=== PATIENT | female | born 1955 | race Caucasian/White ===

== ENCOUNTER 2020-04-01 10:52 | Outpatient (REF) | payer MEDICARE, SELFPAY ==
--- NOTE | 2020-04-01 | MM_ITS ---
EXAMINATION: MM SCREENING DIGITAL BREAST TOMOSYNTHESIS, BILATERAL CLINICAL INFORMATION: Screening. Asymptomatic. The lifetime risk of breast cancer based on the Tyrer-Cuzick Model is 12%. COMPARISON: Mammography: 07/27/2009 TECHNIQUE: Digital breast tomosynthesis is performed in both the craniocaudal and mediolateral oblique views along with computer-aided detection (CAD). Synthesized 2D images are generated from the tomosynthesis. FINDINGS: There are scattered areas of fibroglandular density (ACR BI-RADS breast composition Category b). Breast tissue composition borders on predominantly fatty. Background stromal and fibroglandular densities are unremarkable. There is no interval mass or architectural abnormality or abnormal calcifications. The axilla and skin contours are unremarkable. MM/MM tomosynthesis screening BI IMPRESSION: No mammographic evidence of malignancy. ASSESSMENT: BI-RADS 1: Negative RECOMMENDATION: Routine annual mammography screening. This patient's information was entered into a reminder system with a target due date for their next mammogram.
--- NOTE | 2020-04-01 10:55 | MM_ITS ---
EXAMINATION: BONE DENSITOMETRY CLINICAL INDICATION: Menopausal and female climacteric states. COMPARISON: Baseline BD dated 09/06/2009. TECHNIQUE: Using a [employer] DXA System (software version: 13.1) manufactured by [employer], dual-energy x-ray absorptiometry was performed of the lumbar spine and left hip. The images are of good technical quality. Summary results are attached. FINDINGS: AP SPINE L1-L4: Current: BMD 1.235 g/cm2, Z-score 1.8, T-score 0.5, normal, 4.9% increase from baseline (<5% change is not significant). Baseline: BMD 1.177 g/cm2. LEFT FEMUR, NECK: Current: BMD 0.945 g/cm2, Z-score 0.6, T-score -0.7, normal. Baseline: BMD 0.958 g/cm2. LEFT FEMUR, TOTAL: Current: BMD 1.028 g/cm2, Z-score 1.2, T-score 0.2, normal, 2.6% decrease from baseline (<5% change is not significant). Baseline: BMD 1.055 g/cm2. IDENTIFIED RISK FACTORS: Menopause. HISTORY OF FRACTURE: None listed. MEDICATIONS: Calcium supplements or multivitamin. MM/XR DEXA axial skeleton IMPRESSION: 1. DIAGNOSIS: Normal bone density based on the lowest T-score value of -0.7 in the femoral neck applying World Health Organization criteria. 2. 10-YEAR FRACTURE RISK PREDICTION, FRAX: Major osteoporotic fracture (clinical spine, forearm, hip or shoulder) 7.5%. Hip fracture 0.4%. 3. Treatment Recommendations: NOF guidelines recommend consideration for treatment in postmenopausal women and men age 50 and older presenting with the following: -A hip or vertebral (clinical or morphometric) fracture. -T-score less than or equal to -2.5 at the femoral neck or spine after appropriate evaluation to exclude secondary causes. -Low bone mass at the hip or spine and a 10-year fracture probability by FRAX of greater than or equal to 3% for hip fracture or greater than or equal to 20% for major osteoporotic fracture based on the [place] adapted WHO algorithm. 4. Other Recommendations: All treatment decisions require clinical judgment and consideration of individual patient factors, including patient preferences, comorbidities, previous drug use, risk factors not captured in the FRAX model (e.g. frailty, falls, vitamin D deficiency, increased bone turnover, interval significant decline in bone density) and possible under or overestimation of fracture risk by FRAX. FUTURE SCAN RECOMMENDATION: People with diagnosed cases of osteoporosis or at high risk for fracture should have regular bone mineral density tests. For patients eligible for Medicare, routine testing is allowed once every 2 years. The testing frequency can be increased to one year for patients who have rapidly progressing disease, those who are receiving or discontinuing medical therapy to restore bone mass, or have additional risk factors.
== END 2020-04-01 10:53 | disposition home or self-care (01) ==
LOC: HO.MAMMO 10:52
PROVIDERS: PCP Internal Medicine; Visit Provider Internal Medicine
DX: N95.1 Menopausal and female climacteric states (principal); Z78.0 Asymptomatic menopausal state; Z12.31 Encounter for screening mammogram for malignant neoplasm of breast
CPT/HCPCS: 77063; 77067; 77080

== ENCOUNTER → 2020-04-02 11:08 | Outpatient (BNVA) | payer MEDICARE, SELFPAY | PROVIDERS: PCP Internal Medicine; Visit Provider Nurse Practitioner Family | DX: R00.0 Tachycardia, unspecified (principal); I15.9 Secondary hypertension, unspecified; I35.0 Nonrheumatic aortic (valve) stenosis; Z95.2 Presence of prosthetic heart valve; Z79.82 Long term (current) use of aspirin; Z79.899 Other long term (current) drug therapy | CPT/HCPCS: 93005; 99212 ==

== ENCOUNTER 2020-08-20 08:03 | Outpatient (REF) | payer MEDICARE, SELFPAY ==
[2020-08-20 12:12] LABS: Alanine Aminotransferase 25 U/L (0-31); Anion Gap 13 (12-20); Aspartate Amino Transferase 18 U/L (5-31); Blood Urea Nitrogen 18 mg/dL (9-16); Calcium 9.4 mg/dL (8.4-10.2); Carbon Dioxide 29 mmol/L (22-29); Chloride 104 mmol/L (96-108); Cholesterol 201 mg/dL; Estimated Glomerular Filt Rate > 60; Glucose Fasting 96 mg/dL (60-99); HDL Cholesterol 76 mg/dL; LDL Cholesterol Calculated 110 mg/dl; Potassium 4.5 mmol/L (3.3-5.1); Sodium 141 mmol/L (135-145); Triglycerides 75 mg/dL
[2020-08-20 12:13] LABS: Vitamin D 25-OH Total 52.5 ng/mL (>30)
== END 2020-08-20 08:04 | disposition home or self-care (01) ==
LOC: HO.HMGCLDS 08:03
PROVIDERS: PCP Internal Medicine; Visit Provider Internal Medicine
DX: E78.5 Hyperlipidemia, unspecified (principal); I35.0 Nonrheumatic aortic (valve) stenosis; I10 Essential (primary) hypertension; N95.1 Menopausal and female climacteric states
CPT/HCPCS: 36415; 80048; 80061; 82306; 84450; 84460

== ENCOUNTER → 2020-09-30 10:28 | Outpatient (REF) | payer MEDICARE, SELFPAY ==
--- NOTE | 2020-09-30 10:33 | CA_ITS ---
Transthoracic Echocardiogram Patient (Last, First, Middle): Carly Cox F Gender: Female Date of : 1955 Age: 64 Procedure Date: 09/30/2020 Procedure Type: Transthoracic Echocardiogram Location: OP Height: 165.1 cm Weight: 77.11 kg BSA: 1.85 m2 Heart Rate: bpm BP: 116 / 66 mmHg Forensic Structural Engineer: LYUDMILA Perea MD: Niesha Hwang QC LAB TECHNICIANRobinC Symptoms: I35.0 - Nonrheumatic aortic (valve) stenosis Study Quality: Good ECG Rhythm: Sinus Conclusions: - The left ventricular systolic function is normal. The visually estimated ejection fraction is between 60-65%. - A bioprosthetic aortic valve is present. The prosthetic aortic valve appears to be functioning normally. - There is mild mitral valve regurgitation. Findings Left Ventricle Normal left ventricular cavity size. There is normal left ventricular wall thickness. The left ventricular systolic function is normal. The visually estimated ejection fraction is between 60-65%. There is no evidence of regional wall motion abnormalities. Evidence suggests grade I (mild) diastolic dysfunction. Right Ventricle Normal right ventricular cavity size and systolic function. Atria Both atria are normal in size. Aortic Valve A bioprosthetic aortic valve is present. The prosthetic aortic valve appears to be functioning normally. The peak aortic velocity is 2.48 m/s with a calculated peak gradient of 25 mmHg. The mean gradient is 14 mmHg. The aortic valve area is 1.24 cm2. There is trace (trivial) aortic valve regurgitation. Mitral Valve There is mild anterior mitral leaflet thickening. There is mild mitral valve regurgitation. There is no mitral valve stenosis. Pulmonic Valve The pulmonic valve was not well visualized. There is trace pulmonic valve regurgitation. Tricuspid Valve Normal tricuspid valve structure. There is trace tricuspid valve regurgitation. The pulmonary artery systolic pressure is normal. Great Vessels The aortic annulus, sinuses of valsalva, asc aorta, and aortic arch are normal in size. Venous The inferior vena cava is normal in size and collapses greater than 50% with inspiration. Pericardium/Pleural There is a trivial pericardial effusion. Prior Study Comparison No significant change compared to prior study dated: 08/23/2019. Measurements 2D Linear Measurements RVIDd: 2.75 RVIDd Index: 1.49 IVSd: 0.81 0.6-0.9/0.6-1.0 cm LVIDd: 4.81 3.9-5.3/4.2-5.9 cm LVIDd Index: 2.60 2.4-3.2/2.2-3.1 cm/m2 LVIDs: 2.79 2.0-3.6 cm LVPWd: 1.19 0.7-1.1 cm Ao Root: 2.90 2.1-3.5 cm LA Diam: 4.40 2.7-3.8/3.0-4.0 cm LAIDs Index: 2.38 1.5-2.3 cm/m2 LV Mass: 212.86 67-162/88-224 g LV Mass Index: 115.06 43-95/49-115 g/m2 LVOT Diam: 2.00 3.0+(-)1.3 cm 2D Systolic Function EF 4C: 64.50 >55% EF 2C: 67.00 >55% EF BiP: 65.50 >55% Mitral Valve MV Pk E: 0.69 MV PK A: 0.85 MV Decel Time: 206.00 E/A: 0.80 E'Lateral: 9.03 E'Medial: 6.74 E/E' Med: 10.20 E/E' Lat: 7.60 MR Vol - PW Dopp: 6.24 MR VTI: 2.08 MR ERO: 3.00 MR Alias Mike: 0.33 MR RAD: 0.30 Aortic Valve AoV Pk Mike: 2.48 AoV Mn Mike: 1.78 AoV VTI: 0.47 AoV Pk Grad: 25.00 Aov Mn Grad: 14.00 MARISOL Cont.VTI: 1.24 LVOT LVOT Pk Mike: 0.80 LVOT Mn Mike: 0.63 LVOT VTI: 0.18 LVOT Pk Grad: 3.00 LVOT Mn Grad: 2.00 LVOT Diam: 2.00 LVOT Area: 3.14 Diastolic Function MV Pk E: 0.69 MV Pk A: 0.85 E/A: 0.80 E'Medial: 6.74 E/E' Med: 10.20 E' Laterial: 9.03 E/E' Lat: 7.60 Tricuspid Valve RA Press: 3.00 Great Vessels Aorta Ao Root-2D: 2.90 2.0-3.7 cm Ao Asc: 3.40 2.1-3.4 cm Ao Arch: 2.80 Updated in Other Vendor System with Status of Final Ras Velazquez MD electronically signed on 10/01/2020 11:16:43 AM with status of Final
== END ==
LOC: HO.CARD 10:28
PROVIDERS: Visit Provider Nurse Practitioner Family
DX: I35.0 Nonrheumatic aortic (valve) stenosis (principal)
CPT/HCPCS: 93306

== ENCOUNTER → 2020-10-23 14:25 | Outpatient (BNVA) | payer MEDICARE, SELFPAY | PROVIDERS: PCP Internal Medicine; Visit Provider Internal Medicine Cardiovascular Disease | DX: Z95.2 Presence of prosthetic heart valve (principal) | CPT/HCPCS: 99212 ==

== ENCOUNTER 2021-02-27 09:35 | Outpatient (REF) | payer MEDICARE, SELFPAY ==
[2021-02-27 10:46] LABS: Alanine Aminotransferase 28 U/L (0-31); Anion Gap 10 (12-20); Aspartate Amino Transferase 20 U/L (5-31); Blood Urea Nitrogen 17 mg/dL (9-16); Calcium 9.3 mg/dL (8.4-10.2); Carbon Dioxide 29 mmol/L (22-29); Chloride 104 mmol/L (96-108); Cholesterol 210 mg/dL; Estimated Glomerular Filt Rate > 60; Glucose Fasting 89 mg/dL (60-99); HDL Cholesterol 69 mg/dL; LDL Cholesterol Calculated 125 mg/dl; Sodium 139 mmol/L (135-145); Triglycerides 84 mg/dL
== END 2021-02-27 09:36 | disposition home or self-care (01) ==
LOC: HO.LAB 09:35
PROVIDERS: PCP Internal Medicine; Visit Provider Internal Medicine
DX: E78.5 Hyperlipidemia, unspecified (principal); I15.9 Secondary hypertension, unspecified; R73.01 Impaired fasting glucose; I10 Essential (primary) hypertension; Z95.2 Presence of prosthetic heart valve
CPT/HCPCS: 36415; 80048; 80061; 84450; 84460

== ENCOUNTER 2021-04-09 14:54 | Outpatient (REF) | payer MEDICARE, SELFPAY ==
--- NOTE | ~2021-04-09 | MM_ITS ---
EXAMINATION: MM SCREENING DIGITAL BREAST TOMOSYNTHESIS, BILATERAL CLINICAL INFORMATION: Screening. Asymptomatic. The lifetime risk of breast cancer based on the Tyrer-Cuzick Model is 12.1%. COMPARISON: Mammography: 04/01/2020 and studies dating back to 07/27/2009 TECHNIQUE: Digital breast tomosynthesis is performed in both the craniocaudal and mediolateral oblique views along with computer-aided detection (CAD). Synthesized 2-D images are generated from the tomosynthesis. FINDINGS: There are scattered areas of fibroglandular density (ACR BI-RADS breast composition Category b). There is a stable parenchymal pattern within the left breast without new abnormal dominant mass or suspicious grouping of microcalcifications. In the retroareolar region of the right breast on craniocaudal view, there is a question of a new circumscribed density measuring approximately 6 x 4 mm in size. No associated microcalcifications identified. MM/MM tomosynthesis screening BI IMPRESSION: Retroareolar density right breast for which further evaluation with spot compression view and possible ultrasound is recommended. ASSESSMENT: BI-RADS 0: Incomplete - Need Additional Imaging Evaluation. RECOMMENDATION: 1. Additional views of the right breast. 2. Targeted ultrasound if warranted after review of the additional views. 3. Radiology department staff will contact the patient for additional imaging. This patient's information was entered into a reminder system with a target due date for their next mammogram.
== END 2021-04-09 14:55 | disposition home or self-care (01) ==
LOC: HO.MAMMO 14:54
PROVIDERS: Visit Provider Internal Medicine
DX: Z12.31 Encounter for screening mammogram for malignant neoplasm of breast (principal)
CPT/HCPCS: 77063; 77067

== ENCOUNTER 2021-04-17 10:16 | Outpatient (REF) | payer MEDICARE, SELFPAY ==
--- NOTE | ~2021-04-17 | MM_ITS ---
EXAMINATION: MM DIAGNOSTIC DIGITAL BREAST TOMOSYNTHESIS, RIGHT CLINICAL INFORMATION: Recall from screening for question of circumscribed density retroareolar right breast limited to CC view measuring 6 x 4 mm. COMPARISON: Mammography: 04/09/2021, 04/01/2020 TECHNIQUE: Digital breast tomosynthesis is performed. 2D images are generated from the tomosynthesis. The following views are obtained: Spot CC, rolled CC x2, ML. FINDINGS: There are scattered areas of fibroglandular density (ACR BI-RADS breast composition Category b). Additional views show no persistent asymmetric density. There is no mass or architectural abnormality. Finding on recent synthesized CC view is likely related to summation artifact. Results are discussed with the patient and her daughter at time of visit. MM/MM tomosynthesis added views R IMPRESSION: Additional views show no persistent asymmetric density. ASSESSMENT: BI-RADS 1: Negative RECOMMENDATION: Routine annual mammography screening. This patient's information was entered into a reminder system with a target due date for their next mammogram.
== END 2021-04-17 10:17 | disposition home or self-care (01) ==
LOC: HO.MAMMO 10:16
PROVIDERS: Visit Provider Internal Medicine
DX: R92.2 Inconclusive mammogram (principal)
CPT/HCPCS: 77061; 77065

== ENCOUNTER 2021-09-04 09:34 | Outpatient (REF) | payer MEDICARE, SELFPAY ==
[2021-09-04 12:13] LABS: Vitamin D 25-OH Total 52.7 ng/mL (>30)
[2021-09-04 12:16] LABS: Alanine Aminotransferase 25 U/L (0-31); Anion Gap 12 (12-20); Aspartate Amino Transferase 20 U/L (5-31); Blood Urea Nitrogen 17 mg/dL (9-16); Calcium 9.7 mg/dL (8.4-10.2); Carbon Dioxide 29 mmol/L (22-29); Chloride 105 mmol/L (96-108); Cholesterol 181 mg/dL; Estimated Glomerular Filt Rate > 60; Glucose Fasting 113 mg/dL (60-99); HDL Cholesterol 62 mg/dL; LDL Cholesterol Calculated 104 mg/dl; Potassium 4.5 mmol/L (3.3-5.1); Sodium 141 mmol/L (135-145); Triglycerides 75 mg/dL
== END 2021-09-04 09:35 | disposition home or self-care (01) ==
LOC: HO.HMGCLDS 09:34
PROVIDERS: Visit Provider Internal Medicine
DX: E78.5 Hyperlipidemia, unspecified (principal); I15.9 Secondary hypertension, unspecified; I10 Essential (primary) hypertension; N95.1 Menopausal and female climacteric states; R73.01 Impaired fasting glucose; Z95.2 Presence of prosthetic heart valve
CPT/HCPCS: 36415; 80048; 80061; 82306; 84450; 84460

== ENCOUNTER → 2021-10-10 07:33 | Outpatient (REF) | payer MEDICARE, SELFPAY ==
--- NOTE | 2021-10-10 07:36 | CA_ITS ---
Transthoracic Echocardiogram Patient (Last, First, Middle): Carly Cox F Gender: Female Date of : 1955 Age: 65 Procedure Date: 10/10/2021 Procedure Type: Transthoracic Echocardiogram Location: OP Height: 167.64 cm Weight: 81.65 kg BSA: 1.91 m2 Heart Rate: 80 bpm BP: 140 / 66 mmHg Computer Security Specialist: JESSA Referring MD: Omar Sharma MD Machine Set Up Operator: Omar Sharma MD Symptoms: Z95.2 - Presence of prosthetic heart valve Study Quality: Adequate ECG Rhythm: Sinus Conclusions: - 1. Normal LV systolic function with grade 1 diastolic dysfunction 2. Normally function bioprosthetic aortic valve with mean gradient of 9 mmHg 3. No gross pericardial effusion Findings Left Ventricle Normal left ventricular size, thickness, and systolic function. The visually estimated ejection fraction is between 60-65%. Spectral Doppler is indicative of an impaired relaxation filling pattern. E/E prime ratio is <8, consistent with normal filling pressures. Evidence suggests grade I (mild) diastolic dysfunction. Peak GLS is -16.7%, borderline low. Right Ventricle Normal right ventricular cavity size and systolic function. Atria The left atrium is normal in size. There is lipomatous hypertrophy of the interatrial septum. There is no evidence of interatrial shunt. The right atrium is normal in size. Aortic Valve A bioprosthetic aortic valve is present. The prosthetic aortic valve appears to be functioning normally. The mean gradient is 9 mmHg. Mitral Valve Normal mitral valve structure and function. There is trace mitral valve regurgitation. There is no mitral valve stenosis. Pulmonic Valve The pulmonic valve is likely normal. Tricuspid Valve Likely normal tricuspid valve structure and function. Tricuspid regurgitation envelope is inadequate for calculation of right ventricular systolic pressure. Normal right atrial pressure. Great Vessels All visible segments of the aorta are normal in size. The pulmonary artery was not well visualized. Venous The inferior vena cava is normal in size and collapses greater than 50% with inspiration. Pericardium/Pleural There is no evidence of pericardial effusion. Prior Study Comparison No significant change compared to prior study dated: 09/30/2020. Measurements 2D Linear Measurements IVSd: 0.98 0.6-0.9/0.6-1.0 cm LVIDd: 4.65 3.9-5.3/4.2-5.9 cm LVIDd Index: 2.43 2.4-3.2/2.2-3.1 cm/m2 LVIDs: 2.69 2.0-3.6 cm LVPWd: 0.74 0.7-1.1 cm LA Diam: 3.80 2.7-3.8/3.0-4.0 cm LAIDs Index: 1.99 1.5-2.3 cm/m2 LV Mass: 163.36 67-162/88-224 g LV Mass Index: 85.53 43-95/49-115 g/m2 LVOT Diam: 2.10 3.0+(-)1.3 cm 2D Systolic Function EF 4C: 66.60 >55% EF 2C: 42.10 >55% EF BiP: 55.70 >55% Mitral Valve MV Pk E: 0.65 MV PK A: 0.76 MV Decel Time: 165.00 E/A: 0.80 E'Lateral: 6.85 E'Medial: 8.16 E/E' Med: 7.90 E/E' Lat: 9.40 PHT: 48.00 MVA PHT: 4.58 Decel Sherman: 3.91 Aortic Valve AoV Pk Mike: 1.95 AoV Mn Mike: 1.37 AoV VTI: 0.41 AoV Pk Grad: 15.00 Aov Mn Grad: 9.00 MARISOL Cont.VTI: 1.66 LVOT LVOT Pk Mike: 0.87 LVOT Mn Mike: 0.67 LVOT VTI: 0.20 LVOT Pk Grad: 3.00 LVOT Mn Grad: 2.00 LVOT Diam: 2.10 LVOT Area: 3.46 Diastolic Function MV Pk E: 0.65 MV Pk A: 0.76 E/A: 0.80 E'Medial: 8.16 E/E' Med: 7.90 E' Laterial: 6.85 E/E' Lat: 9.40 Right Ventricle TVS' Mike: 8.27 Tricuspid Valve RA Press: 3.00 Great Vessels Aorta Sinus of Valsalva: 3.00 2.0-3.5 cm Ao Asc: 3.40 2.1-3.4 cm Pulmonary Veins Pulm Vein S/D 1.20 Pulmonary Valve PV Pk Mike: 0.92 Peak PV Grad: 3.00 Updated in Other Vendor System with Status of Final Omar Sharma MD electronically signed on 10/11/2021 2:09:51 PM with status of Final
== END ==
LOC: HO.CARD 07:33
PROVIDERS: PCP Internal Medicine; Visit Provider Nurse Practitioner Family
DX: I35.0 Nonrheumatic aortic (valve) stenosis (principal); Z95.2 Presence of prosthetic heart valve
CPT/HCPCS: 93306; 93356

== ENCOUNTER → 2021-10-28 12:41 | Outpatient (BNVA) | payer MEDICARE, SELFPAY | PROVIDERS: PCP Internal Medicine; Referring Provider Internal Medicine; Visit Provider Internal Medicine Cardiovascular Disease | DX: E78.5 Hyperlipidemia, unspecified (principal); R00.0 Tachycardia, unspecified; Z95.2 Presence of prosthetic heart valve | CPT/HCPCS: 93005; 99212 ==

== ENCOUNTER 2021-12-10 08:41 | Outpatient (REF) | payer MEDICARE, SELFPAY ==
[2021-12-10 12:15] LABS: Alanine Aminotransferase 21 U/L (0-31); Aspartate Amino Transferase 19 U/L (5-31); Cholesterol 189 mg/dL; Glucose Fasting 102 mg/dL (60-99); HDL Cholesterol 67 mg/dL; LDL Cholesterol Calculated 106 mg/dl; Triglycerides 80 mg/dL
[2021-12-11 07:24] LABS: Estimated Average Glucose 103 mg/dL; Hemoglobin A1c % 5.2 %
== END 2021-12-10 08:42 | disposition home or self-care (01) ==
LOC: HO.HMGCLDS 08:41
PROVIDERS: PCP Internal Medicine; Visit Provider Internal Medicine
DX: Z00.01 Encounter for general adult medical examination with abnormal findings (principal); R73.01 Impaired fasting glucose; N95.1 Menopausal and female climacteric states; E78.5 Hyperlipidemia, unspecified; I15.9 Secondary hypertension, unspecified; Z95.2 Presence of prosthetic heart valve
CPT/HCPCS: 36415; 80061; 82947; 83036; 84450; 84460

== ENCOUNTER 2022-03-09 08:17 | Outpatient (REF) | payer MEDICARE, SELFPAY ==
[2022-03-09 12:20] LABS: Cholesterol 184 mg/dL; HDL Cholesterol 66 mg/dL; LDL Cholesterol Calculated 105 mg/dl; Triglycerides 68 mg/dL
== END 2022-03-09 08:18 | disposition home or self-care (01) ==
LOC: HO.HMGCLDS 08:17
PROVIDERS: PCP Internal Medicine; Visit Provider Internal Medicine Cardiovascular Disease
DX: E78.5 Hyperlipidemia, unspecified (principal); I25.10 Atherosclerotic heart disease of native coronary artery without angina pectoris
CPT/HCPCS: 36415; 80061

== ENCOUNTER 2022-04-14 08:47 | Outpatient (REF) | payer MEDICARE, SELFPAY ==
--- NOTE | ~2022-04-14 | MM_ITS ---
EXAMINATION: MM SCREENING DIGITAL BREAST TOMOSYNTHESIS, BILATERAL CLINICAL INFORMATION: Screening. Asymptomatic. The lifetime risk of breast cancer based on the Tyrer-Cuzick Model is 10.0%. COMPARISON: Mammography: April 17, 2021 and studies dating back to July 27, 2009 TECHNIQUE: Digital breast tomosynthesis is performed in both the craniocaudal and mediolateral oblique views along with computer-aided detection (CAD). Synthesized 2D images are generated from the tomosynthesis. FINDINGS: There are scattered areas of fibroglandular density (ACR BI-RADS breast composition Category b). There are no significant masses, abnormal calcifications, or other abnormalities. MM/MM tomosynthesis screening BI IMPRESSION: No significant changes ASSESSMENT: BI-RADS 1: Negative RECOMMENDATION: Routine annual mammography screening. This patient's information was entered into a reminder system with a target due date for their next mammogram.
== END 2022-04-14 08:48 | disposition home or self-care (01) ==
LOC: HO.MAMMO 08:47
PROVIDERS: PCP Internal Medicine; Visit Provider Internal Medicine
DX: Z12.31 Encounter for screening mammogram for malignant neoplasm of breast (principal)
CPT/HCPCS: 77063; 77067

== ENCOUNTER 2022-08-21 08:16 | Outpatient (REF) | payer MEDICARE, SELFPAY ==
[2022-08-21 12:17] LABS: Alanine Aminotransferase 27 U/L (0-31); Anion Gap 13 (12-20); Aspartate Amino Transferase 20 U/L (5-31); Blood Urea Nitrogen 24 mg/dL (9-16); Calcium 9.3 mg/dL (8.4-10.2); Carbon Dioxide 29 mmol/L (22-29); Chloride 105 mmol/L (96-108); Cholesterol 184 mg/dL; Estimated Glomerular Filt Rate > 60; Glucose Fasting 105 mg/dL (60-99); HDL Cholesterol 57 mg/dL; LDL Cholesterol Calculated 109 mg/dl; Potassium 4.6 mmol/L (3.3-5.1); Sodium 142 mmol/L (135-145); Triglycerides 93 mg/dL
== END 2022-08-21 08:17 | disposition home or self-care (01) ==
LOC: HO.HMGCLDS 08:16
PROVIDERS: PCP Internal Medicine; Visit Provider Internal Medicine
DX: E78.5 Hyperlipidemia, unspecified (principal); I15.9 Secondary hypertension, unspecified; N95.1 Menopausal and female climacteric states; R73.01 Impaired fasting glucose; Z95.2 Presence of prosthetic heart valve
CPT/HCPCS: 36415; 80048; 80061; 82306; 84450; 84460

== ENCOUNTER 2022-08-24 10:37 | Outpatient (AMB) | payer MEDICARE, SELFPAY ==
--- NOTE | 2022-08-24 10:44 | A.OFFPC_ITS ---
Vital Signs 08/24/22 10:45 Height 5 ft 7 in Weight 184 lb BMI 28.8 BP 138/70 Blood Pressure Location Rt brachial Position Sitting Pulse 82 Pulse Source Pulse Oximeter Pulse Oximetry (%) 94 Oxygen Delivery Method Room Air Intake Visit Reasons: 6 month follow up Intake Note: Pt is here today for her 6 months f/u Allergies No Known Allergies [No Known Allergies*] Allergy (Verified 03/29/23 12:52) Medication List - Last Reconciled 08/24/22 by Moira Pate MD amoxicillin 2,000 mg (4 x 500 mg) PO ONCE 1 day aspirin 81 mg PO DAILY atorvastatin (Lipitor) 40 mg PO QPM cetirizine (Zyrtec) 10 mg PO DAILY PRN metoprolol succinate ER 25 mg PO DAILY multivitamin 1 tab PO DAILY Tobacco use date assessed: 08/24/22 Fall risk assessment: No Falls in past year Last assessed Fall Risk: 08/24/22 HPI 6 month follow up HPI Details 66-year-old lady with history of aortic valve stenosis status post bioprosthetic valve replacement , history of sinus tachycardia, impaired fasting glucose, dyslipidemia and hypertension, here today for follow-up. She has been feeling well, with no new complaints at present time. Has been compliant with taking her medications and tries to follow recommended diet and getting regular exercise. Denies any episodes of chest pain, no headaches or palpitations, no shortness of breath or lightheadedness reported [facility] Medical History Atrial flutter Dyslipidemia Impaired fasting glucose Menopause syndrome Nonrheumatic aortic (valve) stenosis Secondary hypertension Surgical History H/O aortic valve replacement History of colonoscopy Hx of cardiac cath (~11/2016) Family History Father COPD (chronic obstructive pulmonary disease) Smoker Mother Lung cancer CVD (cardiovascular disease) Maternal Grandmother No problems noted. Brother Bacterial endocarditis Brother No problems noted. Brother No problems noted. Sister No problems noted. Sister No problems noted. Sister No problems noted. Daughter No problems noted. Daughter No problems noted. Social History Housing: House Alcohol intake: current Alcohol intake frequency: holidays/special occasions only Patient Tobacco Use Status: Former Tobacco user Years Smoked: 20 yrs e-Cigarette/Vaping Use: Never Used service: No Current occupational status: employed Cognitive needs: No Hearing needs: No Vision needs: Yes Questionnaire PHQ-9 Over the last 2 weeks, how often have you been bothered by any of the following problems? 1. Little interest or pleasure in doing things: not at all 2. Feeling down, depressed, or hopeless: not at all 3. Trouble falling or staying asleep, or sleeping too much: not at all 4. Feeling tired or having little energy: not at all 5. Poor appetite or overeating: not at all 6. Feeling bad about yourself - or that you are a failure or have let yourself or your family down: not at all 7. Trouble concentrating on things, such as reading the newspaper or watching television: not at all 8. Moving or speaking so slowly that other people could have noticed. Or the op posite - being so fidgety or restless that you have been moving around a lot more than usual: not at all 9. Thoughts that you would be better off or of hurting yourself in some way: not at all Total score: 0 Depression Screening Interpretation: Negative 88049 - PHQ-9 Billing: Yes Source: Developed by Drs. Aric Owens, Estefanía Quezada, Rene Rivera and colleagues, with an educational camron from [employer]. Thrive Questionnaire Date Thrive assessed: 08/24/22 I am a: Patient What is your living situation today?: I have a steady place to live Within the past 12 months, did the food you bought not last and you didn't have the money to get more?: Never true Within the past 12 months, did you worry whether your food would run out before you got money to buy more?: Never true Do you have trouble paying for medicines?: No Do you have trouble getting transportation to medical appointments?: No Do you have trouble paying your heating and electricity bill?: No Do you have trouble taking care of your child, family member or friend?: No Do you have trouble with day-to-day activities such as bathing, preparing meals, shopping, managing finances, etc.?: No Are you currently unemployed and looking for a job?: No Are you interested in more education?: No AUDIT C Alcohol Use Questionnaire (AUDIT-C) 1. How often do you have a drink containing alcohol?: 4 or more times a week 2. How many drinks containing alcohol do you have on a typical day when you are drinking?: 1 or 2 3. How often do you have six or more drinks on one occasion?: Never Total Score: 4 BE-7 AMB Questionnaire BE-7 Date BE - 7 assessed: 08/24/22 Feeling nervous, anxious, or on edge: 1 = Several days Not being able to stop or control worryin = Several days Worrying too much about different things: 0 = Not at all Trouble relaxin = Not at all Being so restless that it is hard to sit still: 0 = Not at all Becoming easily annoyed or irritable: 0 = Not at all Feeling afraid as if something awful might happen: 0 = Not at all Total BE-7 score (0-4 normal; 5-9 mild; 10-14 moderate; 15-21 severe): 2 Source: Developed by Drs. Aric Owens, Estefanía Quezada, Rene Rivera and colleagues, with an educational camron from [employer]. Review of Systems Const Denies chills, Denies fatigue, Denies frequent falls and Denies weakness ENT Denies dizziness Card Denies chest pain, Denies leg edema, Denies lightheadedness, Denies palpitations, Denies dyspnea, Denies dyspnea on exertion and Denies orthopnea Resp Denies cough, Denies dyspnea and Denies dyspnea on exertion GI Denies hematochezia and Denies change in stool character Reports no additional complaints Musc Denies abnormal gait, Denies muscle weakness, Denies numbness, Denies radiating pain into limb and Denies tingling Neuro Denies abnormal gait, Denies dizziness, Denies frequent falls, Denies numbness, Denies tingling and Denies weakness Endo Denies fatigue and Denies palpitations Manuel/Lymph Reports no additional complaints Physical exam (Primary Care) Vital Signs: Last Vital Signs Pulse 82 08/24/22 10:45 BP 138/70 08/24/22 10:45 Pulse Ox 94 08/24/22 10:45 Oxygen Delivery Method Room Air 08/24/22 10:45 BMI result Body Mass Index 28.8 Tobacco/Smoking Status: Tobacco use Status Tobacco use date assessed 08/24/22 08/24/22 10:50 Patient Tobacco Use Status Former Tobacco user 08/24/22 10:50 e-Cigarette/Vaping Use Never Used 08/24/22 10:50 PHQ-9: PHQ-9 Score PHQ-9: Total score 0 08/24/22 11:15 Depression Screening Interpretation: Negative Thrive Assessment: Date of Thrive Assessment Date Thrive assessed 08/24/22 08/24/22 10:52 Const General: comfortable and no acute distress Orientation/consciousness: patient oriented x3 Limitations: no limitations HENMT Ears: hearing grossly normal bilaterally, external ears normal, TM's normal bilaterally and EAC's normal General nose exam: Normal external nose present and No nasal discharge present Mouth: oropharynx normal and moist mucous membranes Eyes General: appearance normal, both eyes and all related structures Conjunctivae: conjunctivae normal Pupils: Equal, round and reactive pupils present EOM: EOMs intact bilaterally Neck Neck: Yes full ROM, Yes no lymphadenopathy and Yes supple Resp Effort & Inspection: normal respiratory effort and able to speak in complete sentences Auscultation: clear to auscultation bilaterally Cardio Rate: regular rate Rhythm: regular rhythm Heart sounds: S1 normal heart sound present and S2 normal heart sound present GI Palpation (GI): Soft to palpation, nontender and no masses Auscultation: normal bowel sounds Skin General skin exam: no rashes or lesions noted Neuro General: patient oriented x3, gait normal, tone normal, moves all extremities, Normal light touch and pain sensation and no focal motor deficits Cranial nerves: Yes Equal, round and reactive pupils present Cognition (Neuro): normal cognition Gait exam (Neuro): Normal gait present Motor exam (neuro): 5/5 motor strength present throughout Extrem General: Yes full ROM, Yes no joint enlargement, Yes no pedal edema, Yes no calf tenderness and Yes normal gait Results Reviewed Results Reviewed: RUN: 08/24/22 1115 PAGE 1 [facility] [address] [place] [id number] Quality Assurance Monitor Chassis: Jamel Licea M.D. Specimen Inquiry Name: Carly Cox Age/Sex: 66/F : 1955 Unit#: [id number] Attend Dr: Moira Pate MD Re08/21/22 Status: DEP [facility]F [facility] Disch: SPEC : [id number] [place]: 08/21/22 STATUS: COMP REQ : [id number] RECD: 08/21/22-[address]: Moira Pate MD COMP: 08/21/22 ENTERED: 08/21/[address] [facility] [address]: ORDERED: Met Prof Fast, AST, ALT, Lipid Panel, Vitamin D 25-OH Test Result Flag Reference Site Sodium 142 135-145 mmol/L Potassium 4.6 3.3-5.1 mmol/L CL 105 96-108 mmol/L CO2 29 22-29 mmol/L Gap 13 12-20 BUN 24 H 9-16 mg/dL Creat 0.80 0.5-1.4 mg/dL EGFR > 60 NOTE: For -Micronesian individuals, multiply the result by 1.210. Chronic Kidney Disease: Estimated GFR < 60 mL/min/1.73m2 Severe Kidney Disease: Estimated GFR < 15 mL/min/1.73m2 FBS 105 H 60-99 mg/dL A fasting glucose from 100-125 mg/dl is considered impaired (pre-diabetes). CA 9.3 8.4-10.2 mg/dL AST (GOT) 20 5-31 U/L ALT (GPT) 27 0-31 U/L Triglyceride 93 mg/dL Desirable Triglyceride: less than 150 mg/dL Borderline High Triglyceride 150-199 mg/dL High Triglyceride: 200-499 mg/dL Very High Triglyceride: greater than or equal to 5OO mg/dL Chol 184 mg/dL Desirable Cholesterol: less than 200 mg/dL Borderline High Cholesterol: 200-239 mg/dL High Cholesterol: greater than 239 mg/dL LDL Calculated 109 mg/dl Desirable LDL: less than 100 mg/dL Near Optimal/Above Optimal LDL: 110-129 mg/dL Borderline High LDL: 130-159 mg/dL High LDL: 160-189 mg/dL Very High LDL: greater than or equal to 190 mg/dL HDL 57 mg/dL Desirable HDL: greater than 40 mg/dL Note: This HDL assay may give artificially low results in patients with liver disease. Vit D 25-OH Tot 59.0 >30 ng/mL Health Based Reference Values* < 20 ng/mL Deficient 20-30 ng/mL Insufficient > 30 ng/mL Sufficient Assessment and Plan Assessment & Plan (1) H/O aortic valve replacement: Comment: 01/23/2016 with trifecta bioprosthetic valve Code(s): Z95.2 - Presence of prosthetic heart valve Plan: Continue aspirin, atorvastatin with a goal LDL of less than 70, and metoprolol succinate ER 25 mg daily. , currently followed by Dr. Sharma (2) Impaired fasting glucose: Code(s): R73.01 - Impaired fasting glucose Plan: Your fasting blood sugars elevated above 100 mg/dL. Impaired glucose metabolism O2 at risk for developing diabetes mellitus type 2, as well as heart attack and stroke later on. Lifestyle changes at just weight loss, healthy eating habits, and regular exercise are important, and can prevent the progression to diabetes (3) Dyslipidemia: Code(s): E78.5 - Hyperlipidemia, unspecified Plan: Reviewed recent fasting lipid profile with patient with levels at goal . Continue with atorvastatin 40 mg daily , in addition to adherence to low- cholesterol diet and regular exercise, at least 30 minutes 3 to 4 times a week. Advised patient to make healthy food choices, eat more fruits, vegetables, whole grains, wild caught fish and low-fat dairy. Limit amount of meat and fried or fatty food products, as well as processed foods and fast foods. Follow-up scheduled with repeat fasting lipid panel in 6 months. (4) Secondary hypertension: Code(s): I15.9 - Secondary hypertension, unspecified Plan: Blood pressure at goal of less than 130/80. Continue with current medication. Reinforced importance of following a low sodium diet, getting regular exercise, and lowering stress levels. Orders: Orders Basic Metabolic Panel Fasting 6 Months Z95.2 - Presence of prosthetic heart valve, R73.01 - Impaired fasting glucose, E78.5 - Hyperlipidemia, unspecified, I15.9 - Secondary hypertension, unspecified Aspartate Amino Transferase 6 Months Z95.2 - Presence of prosthetic heart valve, R73.01 - Impaired fasting glucose, E78.5 - Hyperlipidemia, unspecified, I15.9 - Secondary hypertension, unspecified Alanine Aminotransferase 6 Months Z95.2 - Presence of prosthetic heart valve, R73.01 - Impaired fasting glucose, E78.5 - Hyperlipidemia, unspecified, I15.9 - Secondary hypertension, unspecified Lipid Panel 6 Months Z95.2 - Presence of prosthetic heart valve, R73.01 - Impaired fasting glucose, E78.5 - Hyperlipidemia, unspecified, I15.9 - Secondary hypertension, unspecified Coding Level of Care Code Est Pt Level 4 (52391) Diagnoses H/O aortic valve replacement Z95.2 Impaired fasting glucose R73.01 Dyslipidemia E78.5 Secondary hypertension I15.9
[2022-08-24 10:45] VITALS: BP 138/70; PULSE 82; O2SAT 94; BMI 28.8
== END 2022-08-24 11:32 | disposition home or self-care (01) ==
LOC: HO.HMGC 10:37
PROVIDERS: PCP Internal Medicine; Visit Provider Internal Medicine
DX: Z95.2 Presence of prosthetic heart valve (principal); R73.01 Impaired fasting glucose; E78.5 Hyperlipidemia, unspecified; I15.9 Secondary hypertension, unspecified
CPT/HCPCS: 99214

== ENCOUNTER → 2022-10-14 10:58 | Outpatient (REF) | payer MEDICARE, SELFPAY ==
--- NOTE | 2022-10-14 11:00 | CA_ITS ---
Transthoracic Echocardiogram Patient (Last, First, Middle): Carly Cox F Gender: Female Date of : 1955 Age: 66 Procedure Date: 10/14/2022 Procedure Type: Transthoracic Echocardiogram Location: OP Height: 165.1 cm Weight: 79.38 kg BSA: 1.87 m2 Heart Rate: bpm BP: 126 / 60 mmHg Stereo Operator: Referring MD: Omar Sharma MD Screw Machine Set Up Operator Tool: Omar Sharma MD Symptoms: Z95.2 - Presence of prosthetic heart valve Study Quality: Fair ECG Rhythm: Sinus Conclusions: - 1. Normal LV systolic function with grade 1 diastolic dysfunction 2. Normally functioning bioprosthetic aortic valve 3. Normal RV systolic pressure 4. No gross pericardial effusion 5. Upper limits son normal ascending aortic size Findings Left Ventricle Normal left ventricular size, thickness, and systolic function. The visually estimated ejection fraction is between 55-60%. Spectral Doppler is indicative of an impaired relaxation filling pattern. E/E prime ratio is <8, consistent with normal filling pressures. Evidence suggests grade I (mild) diastolic dysfunction. Right Ventricle Normal right ventricular cavity size and systolic function. Atria The left atrium is normal in size. There is no evidence of interatrial shunt. The right atrium is normal in size. Aortic Valve A bioprosthetic aortic valve is present. The prosthetic aortic valve appears to be functioning normally. The mean gradient is 11 mmHg. There is trace (trivial) aortic valve regurgitation. Measured effective orifice area is 1.7 centimeters sq which is within acceptable limits Mitral Valve Normal mitral valve structure and function. There is mild mitral valve regurgitation. There is no mitral valve stenosis. Pulmonic Valve The pulmonic valve is likely normal. There is trace pulmonic valve regurgitation. Tricuspid Valve Normal tricuspid valve structure. There is trace tricuspid valve regurgitation. The right ventricular systolic pressure is normal. The right ventricular systolic pressure is 15 mmHg. Normal right atrial pressure. There is no evidence of pulmonary hypertension. Great Vessels The pulmonary artery was not well visualized. Venous The inferior vena cava is normal in size and collapses greater than 50% with inspiration. Pericardium/Pleural There is no evidence of pericardial effusion. Prior Study Comparison No significant change compared to prior study dated: 10/10/2021. Measurements 2D Linear Measurements IVSd: 1.15 0.6-0.9/0.6-1.0 cm LVIDd: 4.38 3.9-5.3/4.2-5.9 cm LVIDd Index: 2.34 2.4-3.2/2.2-3.1 cm/m2 LVIDs: 2.83 2.0-3.6 cm LVPWd: 1.15 0.7-1.1 cm Ao Root: 3.10 2.1-3.5 cm LA Diam: 4.20 2.7-3.8/3.0-4.0 cm LAIDs Index: 2.25 1.5-2.3 cm/m2 LV Mass: 222.61 67-162/88-224 g LV Mass Index: 119.04 43-95/49-115 g/m2 LVOT Diam: 2.00 3.0+(-)1.3 cm 2D Systolic Function EF 4C: 55.90 >55% EF 2C: 51.50 >55% Mitral Valve MV Pk E: 0.59 MV PK A: 0.85 MV Decel Time: 185.00 E/A: 0.70 E'Lateral: 7.29 E'Medial: 5.66 E/E' Med: 10.50 E/E' Lat: 8.10 PHT: 54.00 MVA PHT: 4.07 Decel [place]: 3.21 Aortic Valve AoV Pk Mike: 2.12 AoV Mn Mike: 1.50 AoV VTI: 0.49 AoV Pk Grad: 18.00 Aov Mn Grad: 11.00 MARISOL Cont.VTI: 1.78 LVOT LVOT Pk Mike: 1.16 LVOT Mn Mike: 0.80 LVOT VTI: 0.28 LVOT Pk Grad: 5.00 LVOT Mn Grad: 3.00 LVOT Diam: 2.00 LVOT Area: 3.14 Diastolic Function MV Pk E: 0.59 MV Pk A: 0.85 E/A: 0.70 E'Medial: 5.66 E/E' Med: 10.50 E' Laterial: 7.29 E/E' Lat: 8.10 Right Ventricle TAPSE (mm): 20.00 TVS' Mike: 9.00 Tricuspid Valve TR Pk Mike: 1.75 TR Pk Grad: 12.00 RA Press: 3.00 RVSP: 15.00 Great Vessels Aorta Ao Root-2D: 3.10 2.0-3.7 cm Ao Asc: 3.50 2.1-3.4 cm Pulmonary Valve PV Pk Mike: 0.86 Peak PV Grad: 3.00 Updated in Other Vendor System with Status of Final Omar Sharma MD electronically signed on 10/14/2022 1:50:05 PM with status of Final
== END ==
LOC: HO.CARD 10:58
PROVIDERS: PCP Internal Medicine; Visit Provider Nurse Practitioner Family
DX: Z95.2 Presence of prosthetic heart valve (principal)
CPT/HCPCS: 93306

== ENCOUNTER 2022-11-03 12:15 | Outpatient (AMB) | payer MEDICARE, SELFPAY ==
--- NOTE | 2022-11-03 12:31 | MHC.OFFVIS ---
Intake Vital Signs 11/03/22 12:32 Height 5 ft 7 in Weight 174 lb 2.643 oz BMI 27.3 BP 120/70 Blood Pressure Location Lt brachial Position Sitting Pulse 77 Intake Visit Reasons: 1 year follow up, after echo Intake Note: 1 year follow-up after echo with ekg c/o tingling in fingers Cable Maker Required: No Allergies No Known Allergies [No Known Allergies*] Allergy (Verified 08/24/22 11:13) Medication List - Last Reconciled 11/03/22 by Omar Sharma MD amoxicillin 2,000 mg (4 x 500 mg) PO ONCE 1 day aspirin 81 mg PO DAILY atorvastatin (Lipitor) 40 mg PO QPM cetirizine (Zyrtec) 10 mg PO DAILY PRN metoprolol succinate ER 25 mg PO DAILY multivitamin 1 tab PO DAILY HPI HPI Comments History of Present Illness Details Heena comes for follow-up. She has no new cardiac complaints. Complains of numbness in left hand. Denies any exertional symptoms. Denies any orthopnea, PND, leg edema. No prolonged palpitations irregular heartbeat. No neurologic symptoms. Recent echocardiogram shows normally function bioprosthetic aortic valve. Ascending aorta is at upper limits of normal in size [facility] Medical History Atrial flutter Dyslipidemia Impaired fasting glucose Menopause syndrome Nonrheumatic aortic (valve) stenosis Secondary hypertension Surgical History H/O aortic valve replacement History of colonoscopy Hx of cardiac cath (~11/2016) Family History Father COPD (chronic obstructive pulmonary disease) Smoker Mother Lung cancer CVD (cardiovascular disease) Maternal Grandmother No problems noted. Brother Bacterial endocarditis Brother No problems noted. Brother No problems noted. Sister No problems noted. Sister No problems noted. Sister No problems noted. Daughter No problems noted. Daughter No problems noted. Social History Housing: House Alcohol intake: current Alcohol intake frequency: holidays/special occasions only Patient Tobacco Use Status: Former Tobacco user Years Smoked: 20 yrs e-Cigarette/Vaping Use: Never Used service: No Current occupational status: employed Cognitive needs: No Hearing needs: No Vision needs: Yes Review of Systems Const Denies chills, Denies fatigue, Denies fever(s), Denies frequent falls, Denies weakness, Denies weight gain and Denies weight loss ENT Denies dizziness Card Denies chest pain, Denies leg edema, Denies lightheadedness, Denies palpitations, Denies dyspnea, Denies dyspnea on exertion, Denies orthopnea and Denies other (loss of consciousness) Resp Denies cough, Denies dyspnea and Denies dyspnea on exertion GI Denies hematochezia and Denies change in stool character Musc Denies abnormal gait, Denies muscle weakness, Denies numbness, Denies radiating pain into limb and Denies tingling Neuro Denies abnormal gait, Denies dizziness, Denies frequent falls, Denies numbness, Denies tingling and Denies weakness Endo Denies fatigue and Denies palpitations Physical Exam Vital Signs: Last Vital Signs Pulse 77 11/03/22 12:32 BP 120/70 11/03/22 12:32 BMI result Body Mass Index 27.3 Const General: cooperative, comfortable, no acute distress, alert, awake and well groomed Nutritional Appearance: average body habitus Orientation/consciousness: patient oriented x3 Limitations: no limitations Neck Neck: Yes trachea midline, Yes supple and Yes no JVD Resp Effort & Inspection: normal respiratory effort Auscultation: clear to auscultation bilaterally Cardio Jugular venous distension: no JVD Palpation: normal PMI Rate: regular rate Rhythm: regular rhythm Heart sounds: S1 normal heart sound present, S2 normal heart sound present, no click, no gallops, Murmur heart sound present systolic early and no rubs Skin General skin exam: no rashes or lesions noted Neuro General: patient oriented x3 and no focal motor deficits Extrem General: Yes no clubbing, cyanosis or edema Psych Appearance: grossly normal Office Procedures EKG Details: EKG shows normal sinus rhythm with incomplete right bundle-branch block at 77 beats per minute [id number], Complete Assessment & Plan Assessment & Plan (1) H/O aortic valve replacement: Comment: 01/23/2016 with trifecta bioprosthetic valve Code(s): Z95.2 - Presence of prosthetic heart valve Plan: Bioprosthetic aortic valve replacement for severe aortic stenosis. Clinically doing well. Continue low-dose aspirin therapy. Continue vascular risk factor modification. Target goal LDL less than 100 mg/dL. Continue SBE prophylaxis as per ACC/aha guidelines. Advised to call me with any new symptoms. Will follow up in 1 year's time after an echocardiogram. Thank you for allowing me to partake in her care Orders: Orders CA echo transthoracic complete 50 Weeks Z95.2 - Presence of prosthetic heart valve Coding Level of Care Code Est Pt Level 3 (48790) Diagnoses H/O aortic valve replacement Z95.2 CPT Codes EKG - CPT: 68997-[id number], Complete ([id number])
[2022-11-03 12:32] VITALS: BP 120/70; PULSE 77; BMI 27.3
== END 2022-11-03 12:51 | disposition home or self-care (01) ==
PROVIDERS: Visit Provider Internal Medicine Cardiovascular Disease
DX: Z95.2 Presence of prosthetic heart valve (principal)
CPT/HCPCS: 93010; 99213

== ENCOUNTER → 2022-11-03 12:15 | Outpatient (BNVA) | payer MEDICARE, SELFPAY | PROVIDERS: Visit Provider Internal Medicine Cardiovascular Disease | DX: Z95.2 Presence of prosthetic heart valve (principal) | CPT/HCPCS: 93005; 99212 ==

== ENCOUNTER 2023-02-16 09:11 | Outpatient (REF) | payer MEDICARE, SELFPAY ==
[2023-02-16 11:37] LABS: Alanine Aminotransferase 16 U/L (0-31); Anion Gap 13 (12-20); Aspartate Amino Transferase 17 U/L (5-31); Blood Urea Nitrogen 18 mg/dL (9-16); Calcium 9.7 mg/dL (8.4-10.2); Carbon Dioxide 28 mmol/L (22-29); Chloride 106 mmol/L (96-108); Cholesterol 194 mg/dL (<200); Estimated Glomerular Filt Rate > 60; Glucose Fasting 108 mg/dL (60-99); HDL Cholesterol 70 mg/dL (>40); LDL Cholesterol Calculated 111 mg/dL (<100); Potassium 4.1 mmol/L (3.3-5.1); Sodium 143 mmol/L (135-145); Triglycerides 67 mg/dL (<150)
== END 2023-02-16 09:12 | disposition home or self-care (01) ==
LOC: HO.HMGCLDS 09:11
PROVIDERS: PCP Internal Medicine; Visit Provider Internal Medicine
DX: R73.01 Impaired fasting glucose (principal); E78.5 Hyperlipidemia, unspecified; I15.9 Secondary hypertension, unspecified; Z95.2 Presence of prosthetic heart valve
CPT/HCPCS: 36415; 80048; 80061; 84450; 84460

== ENCOUNTER 2023-03-29 11:56 | Outpatient (AMB) | payer MEDICARE, SELFPAY ==
--- NOTE | 2023-03-29 12:26 | MHC.PC.OV ---
Vital Signs 03/29/23 12:27 Height 5 ft 7 in Weight 174 lb 4 oz BMI 27.3 BP 120/68 Blood Pressure Location Lt brachial Position Sitting Pulse 87 Pulse Source Pulse Oximeter Pulse Oximetry (%) 94 Oxygen Delivery Method Room Air Intake Visit Reasons: PE/6m follow up Intake Note: Pt is here for her Annual PE Allergies No Known Allergies [No Known Allergies*] Allergy (Verified 03/29/23 12:52) Medication List - Last Reconciled 03/29/23 by Moira Pate MD amoxicillin 2,000 mg (4 x 500 mg) PO ONCE 1 day aspirin 81 mg PO DAILY atorvastatin (Lipitor) 40 mg PO QPM cetirizine (Zyrtec) 10 mg PO DAILY PRN hydroxyzine HCl 25 mg PO BEDTIME PRN metoprolol succinate ER 25 mg PO DAILY multivitamin 1 tab PO DAILY Tobacco use date assessed: 03/29/23 Fall risk assessment: No Falls in past year Last assessed Fall Risk: 03/29/23 Dental Screening Dental Screen Date: 03/29/23 Did you have a dental visit in the last 12 months?: Yes Did you have a dental problem in the last 6 months where you did not have access to dental care?: No Was dental information given to patient?: Patient has dentist HPI PE/6m follow up HPI Details 67-year-old lady with history of aortic stenosis status post TAVR, has prediabetes, dyslipidemia secondary hypertension, here today for her physical exam. She has been feeling well with no complaints at present time [facility] Medical History Impaired fasting glucose Menopause syndrome Dyslipidemia Secondary hypertension Atrial flutter Nonrheumatic aortic (valve) stenosis Surgical History Hx of cardiac cath (~11/2016) H/O aortic valve replacement History of colonoscopy Family History Father COPD (chronic obstructive pulmonary disease) Smoker Mother Lung cancer CVD (cardiovascular disease) Maternal Grandmother No problems noted. Brother Bacterial endocarditis Brother No problems noted. Brother No problems noted. Sister No problems noted. Sister No problems noted. Sister No problems noted. Daughter No problems noted. Daughter No problems noted. Social History Housing: House Alcohol intake: current Alcohol intake frequency: holidays/special occasions only Patient Tobacco Use Status: Former Tobacco user Years Smoked: 20 yrs e-Cigarette/Vaping Use: Never Used service: No Current occupational status: employed Cognitive needs: No Hearing needs: No Vision needs: Yes Questionnaire PHQ-9 Over the last 2 weeks, how often have you been bothered by any of the following problems? Depression Screening Interpretation: Negative Depression Screening Done: Yes Source: Developed by Drs. Aric Owens, Estefanía Quezada, Rene Rivera and colleagues, with an educational camron from [employer]. Thrive Questionnaire Date Thrive assessed: 08/24/22 BE-7 AMB Questionnaire BE-7 Date BE - 7 assessed: 08/24/22 Source: Developed by Drs. Aric Owens, Estefanía Quezada, Rene Rivera and colleagues, with an educational camron from [employer]. Review of Systems Const Denies chills, Denies fatigue, Denies fever(s), Denies frequent falls, Denies weakness, Denies weight gain and Denies weight loss Eyes Reports no additional complaints ENT Denies dizziness Card Denies chest pain, Denies leg edema, Denies lightheadedness, Denies palpitations, Denies dyspnea, Denies dyspnea on exertion, Denies orthopnea and Denies other (loss of consciousness) Resp Denies cough, Denies dyspnea and Denies dyspnea on exertion GI Denies hematochezia and Denies change in stool character Reports no additional complaints Musc Denies abnormal gait, Denies muscle weakness, Denies numbness, Denies radiating pain into limb and Denies tingling Skin/Breast Denies breast swelling, Denies breast skin changes, Denies breast pain, Denies breast mass, Denies lesions and Denies rash Neuro Denies abnormal gait, Denies dizziness, Denies frequent falls, Denies numbness, Denies tingling and Denies weakness Psych Reports no additional complaints Endo Denies fatigue and Denies palpitations Manuel/Lymph Reports no additional complaints Aller/Immun Reports no additional complaints Physical exam (Primary Care) Vital Signs: Last Vital Signs Pulse 87 03/29/23 12:27 BP 120/68 03/29/23 12:27 Pulse Ox 94 03/29/23 12:27 Oxygen Delivery Method Room Air 03/29/23 12:27 BMI result Body Mass Index 27.3 Tobacco/Smoking Status: Tobacco use Status Tobacco use date assessed 03/29/23 03/29/23 12:39 Patient Tobacco Use Status Former Tobacco user 03/29/23 12:27 e-Cigarette/Vaping Use Never Used 03/29/23 12:27 Depression Screening Interpretation: Negative Thrive Assessment: Date of Thrive Assessment Date Thrive assessed 08/24/22 03/29/23 12:27 Const General: comfortable and no acute distress Orientation/consciousness: patient oriented x3 Limitations: no limitations HENMT Ears: hearing grossly normal bilaterally, external ears normal, TM's normal bilaterally and EAC's normal General nose exam: Normal external nose present Mouth: oropharynx normal and moist mucous membranes Eyes General: appearance normal, both eyes and all related structures Conjunctivae: conjunctivae normal Pupils: Equal, round and reactive pupils present EOM: EOMs intact bilaterally Neck Neck: Yes full ROM, Yes no lymphadenopathy and Yes supple Resp Effort & Inspection: normal respiratory effort and able to speak in complete sentences Auscultation: clear to auscultation bilaterally Cardio Rate: regular rate Rhythm: regular rhythm Heart sounds: S1 normal heart sound present and S2 normal heart sound present GI Palpation (GI): Soft to palpation, nontender and no masses Auscultation: normal bowel sounds Skin General skin exam: no rashes or lesions noted Neuro General: patient oriented x3, gait normal, tone normal, moves all extremities, Normal light touch and pain sensation and no focal motor deficits Cranial nerves: Yes Equal, round and reactive pupils present Cognition (Neuro): normal cognition Gait exam (Neuro): Normal gait present Motor exam (neuro): 5/5 motor strength present throughout Extrem General: Yes full ROM, Yes no joint enlargement, Yes no pedal edema, Yes no calf tenderness and Yes normal gait Results Reviewed Results Reviewed: Name: Carly Cox Age/Sex: 67/F : 1955 Unit#: [id number] Attend Dr: Moira Pate MD Re02/16/23 Status: DEP REF Location: [facility] Disch: SPEC : [id number] WALLACE: 02/16/23 STATUS: COMP REQ : [id number] RECD: 02/16/[address]: Moira Pate MD COMP: 02/16/23 ENTERED: 02/16/[address] [facility] DR: ORDERED: Met Prof Fast, AST, ALT, Lipid Panel Test Result Flag Reference Site Sodium 143 135-145 mmol/L Potassium 4.1 3.3-5.1 mmol/L CL 106 96-108 mmol/L CO2 28 22-29 mmol/L Gap 13 12-20 BUN 18 H 9-16 mg/dL Creat 0.77 0.5-1.4 mg/dL EGFR > 60 NOTE: For -Indonesian individuals, multiply the result by 1.210. Chronic Kidney Disease: Estimated GFR < 60 mL/min/1.73m2 Severe Kidney Disease: Estimated GFR < 15 mL/min/1.73m2 FBS 108 H 60-99 mg/dL A fasting glucose from 100-125 mg/dl is considered impaired (pre-diabetes). CA 9.7 8.4-10.2 mg/dL AST (GOT) 17 5-31 U/L ALT (GPT) 16 0-31 U/L Triglyceride 67 <150 mg/dL Desirable Triglyceride: less than 150 mg/dL Borderline High Triglyceride 150-199 mg/dL High Triglyceride: 200-499 mg/dL Very High Triglyceride: greater than or equal to 5OO mg/dL Cholesterol 194 <200 mg/dL Desirable Cholesterol: less than 200 mg/dL Borderline High Cholesterol: 200-239 mg/dL High Cholesterol: greater than 239 mg/dL LDL Calculated 111 H <100 mg/dL Desirable LDL: less than 100 mg/dL Near Optimal/Above Optimal LDL: 110-129 mg/dL Borderline High LDL: 130-159 mg/dL High LDL: 160-189 mg/dL Very High LDL: greater than or equal to 190 mg/dL HDL 70 >40 mg/dL Desirable HDL: greater than 40 mg/dL Note: This HDL assay may give artificially low results in patients with liver disease. Assessment and Plan Assessment & Plan (1) Annual visit for general adult medical examination with abnormal findings: Code(s): Z00.01 - Encounter for general adult medical examination with abnormal findings Plan: Recommended dental visit every 6 months and regular eye exams, at least every 2 years. Take adequate calcium in diet and vitamin-D 3 at 2000 IU per cap once a day, in addition to weight-bearing exercises to help maintain good muscle tone and weight control. Instructed to do self-breast exam, and continue to get yearly mammogram, already has appointment scheduled later this month. Up-to-date with her bone density scan. Reminded to get her COVID booster, and will be getting her flu shot at the pharmacy, up-to-date with Tdap , pneumococcal vaccination and shingles vaccination. I (2) Impaired fasting glucose: Code(s): R73.01 - Impaired fasting glucose Plan: Latest fasting labs showed elevated fasting glucose, encouraged to continue doing regular exercise, following recommended diet, (3) Dyslipidemia: Code(s): E78.5 - Hyperlipidemia, unspecified Plan: LDL cholesterol not at goal of at least less than 100 100 mg/dL. Encouraged to adhere to recommended diet, getting regular exercise. (4) Secondary hypertension: Code(s): I15.9 - Secondary hypertension, unspecified Plan: Blood pressure at goal of less than 130/80. Continue with current medication. Reinforced importance of following a low sodium diet, getting regular exercise, and lowering stress levels. Orders: Orders Alanine Aminotransferase 08/18/23 Z95.2 - Presence of prosthetic heart valve, R73.01 - Impaired fasting glucose, N95.1 - Menopausal and female climacteric states, E78.5 - Hyperlipidemia, unspecified, I15.9 - Secondary hypertension, unspecified Hemoglobin A1c 08/18/23 Z95.2 - Presence of prosthetic heart valve, R73.01 - Impaired fasting glucose, N95.1 - Menopausal and female climacteric states, E78.5 - Hyperlipidemia, unspecified, I15.9 - Secondary hypertension, unspecified Glucose Fasting 08/18/23 Z95.2 - Presence of prosthetic heart valve, R73.01 - Impaired fasting glucose, N95.1 - Menopausal and female climacteric states, E78.5 - Hyperlipidemia, unspecified, I15.9 - Secondary hypertension, unspecified Vitamin D 25-OH Total 08/18/23 Z95.2 - Presence of prosthetic heart valve, R73.01 - Impaired fasting glucose, N95.1 - Menopausal and female climacteric states, E78.5 - Hyperlipidemia, unspecified, I15.9 - Secondary hypertension, unspecified Lipid Panel 08/18/23 Z95.2 - Presence of prosthetic heart valve, R73.01 - Impaired fasting glucose, N95.1 - Menopausal and female climacteric states, E78.5 - Hyperlipidemia, unspecified, I15.9 - Secondary hypertension, unspecified Aspartate Amino Transferase 08/18/23 Z95.2 - Presence of prosthetic heart valve, R73.01 - Impaired fasting glucose, N95.1 - Menopausal and female climacteric states, E78.5 - Hyperlipidemia, unspecified, I15.9 - Secondary hypertension, unspecified Hemoglobin and Hematocrit 08/18/23 Z95.2 - Presence of prosthetic heart valve, R73.01 - Impaired fasting glucose, N95.1 - Menopausal and female climacteric states, E78.5 - Hyperlipidemia, unspecified, I15.9 - Secondary hypertension, unspecified Basic Metabolic Panel Fasting 08/18/23 Z95.2 - Presence of prosthetic heart valve, R73.01 - Impaired fasting glucose, N95.1 - Menopausal and female climacteric states, E78.5 - Hyperlipidemia, unspecified, I15.9 - Secondary hypertension, unspecified Medications: Refilled atorvastatin (Lipitor) 40 mg PO QPM 90 tabs 3RF metoprolol succinate ER 25 mg PO DAILY 90 tabs 3RF Coding Level of Care Code Est Pt Prev Care >65y(24194) Diagnoses Annual visit for general adult medical examination with abnormal findings Z00.01 Impaired fasting glucose R73.01 Dyslipidemia E78.5 Secondary hypertension I15.9
[2023-03-29 12:27] VITALS: BP 120/68; PULSE 87; O2SAT 94; BMI 27.3
== END 2023-03-29 14:13 | disposition home or self-care (01) ==
PROVIDERS: PCP Internal Medicine; Visit Provider Internal Medicine
DX: Z00.00 Encounter for general adult medical examination without abnormal findings (principal); R73.01 Impaired fasting glucose; E78.5 Hyperlipidemia, unspecified; I15.9 Secondary hypertension, unspecified
CPT/HCPCS: 99397

== ENCOUNTER 2023-04-15 15:30 | Outpatient (REF) | payer MEDICARE, SELFPAY | END 2023-04-15 15:31 | disposition home or self-care (01) | LOC: HO.MAMMO 15:30 | PROVIDERS: PCP Internal Medicine; Visit Provider Internal Medicine | DX: Z12.31 Encounter for screening mammogram for malignant neoplasm of breast (principal) | CPT/HCPCS: 77063; 77067 ==

== ENCOUNTER → 2023-04-15 15:30 | Outpatient (BNV) | payer MEDICARE, SELFPAY | PROVIDERS: PCP Internal Medicine; Visit Provider Radiology Diagnostic Radiology | DX: Z12.31 Encounter for screening mammogram for malignant neoplasm of breast (principal) | CPT/HCPCS: 77063; 77067 ==

== ENCOUNTER 2023-09-23 08:27 | Outpatient (REF) | payer MEDICARE, SELFPAY ==
[2023-09-23 10:38] LABS: Hematocrit 37.7 % (37.0-47.0); Hemoglobin 12.9 g/dl (12.0-16.0)
[2023-09-23 10:51] LABS: Estimated Average Glucose 100 mg/dL; Hemoglobin A1c % 5.1 % (<6.0)
[2023-09-23 10:52] LABS: Alanine Aminotransferase 23 U/L (0-31); Anion Gap 11 (12-20); Aspartate Amino Transferase 20 U/L (5-31); Blood Urea Nitrogen 18 mg/dL (9-16); Calcium 9.5 mg/dL (8.4-10.2); Carbon Dioxide 28 mmol/L (22-29); Chloride 107 mmol/L (96-108); Cholesterol 173 mg/dL (<200); Estimated Glomerular Filt Rate > 60; Glucose Fasting 108 mg/dL (60-99); HDL Cholesterol 65 mg/dL (>40); LDL Cholesterol Calculated 94 mg/dL (<100); Potassium 4.3 mmol/L (3.3-5.1); Sodium 142 mmol/L (135-145); Triglycerides 73 mg/dL (<150)
[2023-09-23 11:15] LABS: Vitamin D 25-OH Total 49.8 ng/mL (>30)
== END 2023-09-23 08:28 | disposition home or self-care (01) ==
LOC: HO.HMGCLDS 08:27
PROVIDERS: PCP Internal Medicine; Visit Provider Internal Medicine
DX: I15.9 Secondary hypertension, unspecified (principal); E78.5 Hyperlipidemia, unspecified; N95.1 Menopausal and female climacteric states; R73.01 Impaired fasting glucose; Z95.2 Presence of prosthetic heart valve
CPT/HCPCS: 36415; 80048; 80061; 82306; 83036; 84450; 84460; 85014; 85018

== ENCOUNTER 2023-09-28 11:12 | Outpatient (AMB) | payer MEDICARE, SELFPAY ==
[2023-09-28 11:28] VITALS: BP 134/62; PULSE 86; O2SAT 98; BMI 28.2
--- NOTE | 2023-09-28 11:28 | MHC.PC.OV ---
Vital Signs 09/28/23 11:28 Height 5 ft 7 in Weight 180 lb BMI 28.2 BP 134/62 Blood Pressure Location Lt brachial Position Sitting Pulse 86 Pulse Source Pulse Oximeter Pulse Oximetry (%) 98 Oxygen Delivery Method Room Air Intake Visit Reasons: 6 Month follow up Intake Note: Pt is here today for 6 months follow up visit on labs. Allergies No Known Allergies [No Known Allergies*] Allergy (Verified 09/28/23 12:09) Medication List - Last Reconciled 09/28/23 by Moira Pate MD amoxicillin 2,000 mg (4 x 500 mg) PO ONCE 1 day aspirin 81 mg PO DAILY atorvastatin (Lipitor) 40 mg PO QPM cetirizine (Zyrtec) 10 mg PO DAILY PRN hydroxyzine HCl 25 mg PO BEDTIME PRN metoprolol succinate ER 25 mg PO DAILY multivitamin 1 tab PO DAILY Tobacco use date assessed: 09/28/23 Fall risk assessment: 1 Fall in past year Last assessed Fall Risk: 09/28/23 Dental Screening Dental Screen Date: 09/28/23 Did you have a dental visit in the last 12 months?: Yes Did you have a dental problem in the last 6 months where you did not have access to dental care?: No Was dental information given to patient?: Patient has dentist HPI 6 Month follow up HPI Details 68-year-old lady with history of aortic valve stenosis status post replacemen , t here today for follow-up on her hypertension, lipids and prediabetes. She has been feeling well compliant with taking her medications. Latest fasting labs showed lipids, electrolytes renal function are within normal limits, and blood pressure stable controlled on present treatment. [facility] Medical History Impaired fasting glucose Menopause syndrome Dyslipidemia Secondary hypertension Atrial flutter Nonrheumatic aortic (valve) stenosis Surgical History Hx of cardiac cath (~11/2016) H/O aortic valve replacement History of colonoscopy Family History Father COPD (chronic obstructive pulmonary disease) Smoker Mother Lung cancer CVD (cardiovascular disease) Maternal Grandmother No problems noted. Brother Bacterial endocarditis Brother No problems noted. Brother No problems noted. Sister No problems noted. Sister No problems noted. Sister No problems noted. Daughter No problems noted. Daughter No problems noted. Social History Housing: House Alcohol intake: current Alcohol intake frequency: holidays/special occasions only Patient Tobacco Use Status: Former Tobacco user Years Smoked: started in her 20's, 10 cig. a day, quit 8 years ago e-Cigarette/Vaping Use: Never Used service: No Current occupational status: employed Cognitive needs: No Hearing needs: No Vision needs: Yes Questionnaire PHQ-9 Over the last 2 weeks, how often have you been bothered by any of the following problems? 1. Little interest or pleasure in doing things: several days 2. Feeling down, depressed, or hopeless: not at all 3. Trouble falling or staying asleep, or sleeping too much: several days 4. Feeling tired or having little energy: several days 5. Poor appetite or overeating: not at all 6. Feeling bad about yourself - or that you are a failure or have let yourself or your family down: not at all 7. Trouble concentrating on things, such as reading the newspaper or watching television: several days 8. Moving or speaking so slowly that other people could have noticed. Or the opposite - being so fidgety or restless that you have been moving around a lot more than usual: not at all 9. Thoughts that you would be better off or of hurting yourself in some way: not at all Total score: 4 Depression Screening Interpretation: Negative Depression Screening Done: Yes 81067 - PHQ-9 Billing: Yes Source: Developed by Drs. Aric Owens, Estefanía Quezada, Rene Rivera and colleagues, with an educational camron from [employer]. Thrive Questionnaire Date Thrive assessed: 09/28/23 I am a: Patient What is your living situation today?: I have a steady place to live Within the past 12 months, did the food you bought not last and you didn't have the money to get more?: Never true Within the past 12 months, did you worry whether your food would run out before you got money to buy more?: Never true Do you have trouble paying for medicines?: No Do you have trouble getting transportation to medical appointments?: No Do you have trouble paying your heating and electricity bill?: No Do you have trouble taking care of your child, family member or friend?: No Do you have trouble with day-to-day activities such as bathing, preparing meals, shopping, managing finances, etc.?: No Are you currently unemployed and looking for a job?: No Are you interested in more education?: No Please select the resources that you would like help with: None THRIVE Score: 0 AUDIT C Alcohol Use Questionnaire (AUDIT-C) 1. How often do you have a drink containing alcohol?: 4 or more times a week 2. How many drinks containing alcohol do you have on a typical day when you are drinking?: 3 or 4 3. How often do you have six or more drinks on one occasion?: Less than monthly Total Score: 6 BE-7 AMB Questionnaire BE-7 Date BE - 7 assessed: 09/28/23 Feeling nervous, anxious, or on edge: 1 = Several days Not being able to stop or control worryin = Not at all Worrying too much about different things: 1 = Several days Trouble relaxin = Not at all Being so restless that it is hard to sit still: 0 = Not at all Becoming easily annoyed or irritable: 1 = Several days Feeling afraid as if something awful might happen: 0 = Not at all Total BE-7 score (0-4 normal; 5-9 mild; 10-14 moderate; 15-21 severe): 3 Source: Developed by Drs. Aric Owens, Estefanía Quezada, Rene Rivera and colleagues, with an educational camron from [employer]. BE-7 Assessment Billing BE-7 Assessment Tool: BE-7 Assessment 55399 Review of Systems Const Denies chills, Denies fatigue, Denies fever(s), Denies weakness and Denies weight gain Eyes Denies change in vision ENT Denies dizziness Card Denies chest pain, Denies leg edema, Denies lightheadedness, Denies palpitations, Denies dyspnea and Denies orthopnea Resp Denies cough and Denies dyspnea GI Reports no additional complaints Reports no additional complaints Musc Denies abnormal gait, Denies muscle weakness, Denies numbness, Denies radiating pain into limb and Denies tingling Skin/Breast Denies breast pain and Denies breast mass Neuro Denies abnormal gait, Denies dizziness, Denies numbness, Denies tingling and Denies weakness Psych Reports no additional complaints Endo Denies fatigue and Denies palpitations Manuel/Lymph Reports no additional complaints Aller/Immun Reports no additional complaints Physical exam (Primary Care) Vital Signs: Last Vital Signs Pulse 86 09/28/23 11:28 BP 134/62 09/28/23 11:28 Pulse Ox 98 09/28/23 11:28 Oxygen Delivery Method Room Air 09/28/23 11:28 BMI result Body Mass Index 28.2 Tobacco/Smoking Status: Tobacco use Status Tobacco use date assessed 09/28/23 09/28/23 11:50 Patient Tobacco Use Status Former Tobacco user 09/28/23 11:28 e-Cigarette/Vaping Use Never Used 09/28/23 11:28 PHQ-9: PHQ-9 Score PHQ-9: Total score 4 09/28/23 12:08 Depression Screening Interpretation: Negative Thrive Assessment: Date of Thrive Assessment Date Thrive assessed 09/28/23 09/28/23 11:50 Const General: comfortable and no acute distress Orientation/consciousness: patient oriented x3 HENMT Ears: hearing grossly normal bilaterally, external ears normal, TM's normal bilaterally and EAC's normal General nose exam: Normal external nose present Mouth: oropharynx normal and moist mucous membranes Eyes General: appearance normal, both eyes and all related structures Conjunctivae: conjunctivae normal Pupils: Equal, round and reactive pupils present EOM: EOMs intact bilaterally Neck Neck: Yes full ROM, Yes no lymphadenopathy and Yes supple Resp Effort & Inspection: normal respiratory effort and able to speak in complete sentences Auscultation: clear to auscultation bilaterally Cardio Rate: regular rate Rhythm: regular rhythm Heart sounds: S1 normal heart sound present and S2 normal heart sound present GI Palpation (GI): Soft to palpation, nontender and no masses Auscultation: normal bowel sounds Back/Spine/Pelvis Back: No back tenderness Skin General skin exam: no rashes or lesions noted Neuro General: patient oriented x3, gait normal, tone normal, moves all extremities, Normal light touch and pain sensation and no focal motor deficits Cranial nerves: Yes Equal, round and reactive pupils present Cognition (Neuro): normal cognition Gait exam (Neuro): Normal gait present Motor exam (neuro): 5/5 motor strength present throughout Extrem General: Yes full ROM, Yes no joint enlargement, Yes no pedal edema, Yes no calf tenderness and Yes normal gait Psych Appearance: grossly normal and well kempt Mental Status: mental status grossly normal Speech and movement: Normal speech and movement present Affect: normal affect Results Reviewed Results Reviewed: Laboratory Tests 09/23/23 08:31 Name: Carly Cox Age/Sex: 67/F : 1955 Unit#: [id number] Attend Dr: Moira Pate MD Re09/23/23 Status: DEP REF Location: [facility] Disch: SPEC : [id number] WALLACE: 09/23/23 STATUS: COMP REQ : [id number] RECD: 09/23/23-[address]: Moira Pate MD COMP: 09/23/23 ENTERED: 09/23/23 [facility] DR: ORDERED: Met Prof Fast, AST, ALT, Lipid Panel, Vitamin D 25-OH Test Result Flag Reference Sodium 142 135-145 mmol/L Potassium 4.3 3.3-5.1 mmol/L CL 107 96-108 mmol/L CO2 28 22-29 mmol/L Gap 11 L 12-20 BUN 18 H 9-16 mg/dL Creat 0.73 0.5-1.4 mg/dL EGFR > 60 NOTE: For -[place]arusian individuals, multiply the result by 1.210. Chronic Kidney Disease: Estimated GFR < 60 mL/min/1.73m2 Severe Kidney Disease: Estimated GFR < 15 mL/min/1.73m2 FBS 108 H 60-99 mg/dL A fasting glucose from 100-125 mg/dl is considered impaired (pre-diabetes). CA 9.5 8.4-10.2 mg/dL AST (GOT) 20 5-31 U/L ALT (GPT) 23 0-31 U/L Triglyceride 73 <150 mg/dL Desirable Triglyceride: less than 150 mg/dL Borderline High Triglyceride 150-199 mg/dL High Triglyceride: 200-499 mg/dL Very High Triglyceride: greater than or equal to 5OO mg/dL Cholesterol 173 <200 mg/dL Desirable Cholesterol: less than 200 mg/dL Borderline High Cholesterol: 200-239 mg/dL High Cholesterol: greater than 239 mg/dL LDL Calculated 94 <100 mg/dL Desirable LDL: less than 100 mg/dL Near Optimal/Above Optimal LDL: 110-129 mg/dL Borderline High LDL: 130-159 mg/dL High LDL: 160-189 mg/dL Very High LDL: greater than or equal to 190 mg/dL HDL 65 >40 mg/dL Desirable HDL: greater than 40 mg/dL Note: This HDL assay may give artificially low results in patients with liver disease. Vit D 25-OH Tot 49.8 >30 ng/mL Health Based Reference Values* < 20 ng/mL Deficient 20-30 ng/mL Insufficient > 30 ng/mL Sufficient Hgb 12.9 Hct 37.7 Name: Carly Cox Age/Sex: 67/F : 1955 Unit#: [id number] Attend Dr: Moira Pate MD Re09/23/23 Status: DEP REF [facility] Disch: SPEC : [id number] WALLACE: 09/23/23 STATUS: COMP REQ : [id number] RECD: 09/23/23-[address]: Moira Pate MD COMP: 09/23/23-1038 ENTERED: 09/23/23-[address]: ORDERED: HGB and HCT Test Result Flag Reference HGB 12.9 12.0-16.0 g/dl HCT 37.7 37.0-47.0 % Coding Level of Care Code Est Pt Level 4 (75898) Complex EM visit Add On G2211 Diagnoses Dyslipidemia E78.5 Impaired fasting glucose R73.01 Additional Codes BE-7 Assessment Billing - BE-7 Assessment Tool: BE-7 Assessment 90631 ([id number])
== END 2023-09-28 12:43 | disposition home or self-care (01) ==
PROVIDERS: PCP Internal Medicine; Visit Provider Internal Medicine
DX: E78.5 Hyperlipidemia, unspecified (principal); R73.01 Impaired fasting glucose
CPT/HCPCS: 99214; G2211

== ENCOUNTER → 2023-10-19 09:55 | Outpatient (REF) | payer MEDICARE, SELFPAY ==
--- NOTE | 2023-10-19 09:57 | CA_ITS ---
Transthoracic Echocardiogram Patient (Last, First, Middle): Carly Cox F Gender: Female Date of : 1955 Age: 67 Procedure Date: 10/19/2023 Procedure Type: Transthoracic Echocardiogram Location: OP Height: 167.64 cm Weight: 80.74 kg BSA: 1.90 m2 Heart Rate: 85 bpm BP: 128 / 50 mmHg Emergency Planning And Response Manager: SB Referring MD: Omar Sharma MD Symptoms: Z95.2 - Presence of prosthetic heart valve Study Quality: Fair but adequate ECG Rhythm: Sinus Conclusions: - The left ventricular systolic function is normal. The calculated ejection fraction is 61% by biplane method. - A bioprosthetic aortic valve is present. The prosthetic aortic valve appears to be functioning abnormally. The mean gradient is 19 mmHg. [id number] para-valvular regurgitation. Elevated gradients could be related to the regurgitation and high flow state. Findings Left Ventricle Normal left ventricular cavity size. There is normal left ventricular wall thickness. The left ventricular systolic function is normal. The calculated ejection fraction is 61% by biplane method. There is no evidence of regional wall motion abnormalities. Diastolic function is normal for age. Right Ventricle Normal right ventricular cavity size and systolic function. Atria Both atria are normal in size. Aortic Valve A bioprosthetic aortic valve is present. The prosthetic aortic valve appears to be functioning abnormally. The peak aortic velocity is 2.87 m/s with a calculated peak gradient of 33 mmHg. The mean gradient is 19 mmHg. The aortic valve area is 1.40 cm2. [id number] para-valvular regurgitation. Elevated gradients could be related to the regurgitation and high flow state. Mitral Valve The mitral valve appears normal. There is trace mitral valve regurgitation. There is no mitral valve stenosis. Pulmonic Valve The pulmonic valve is likely normal. Tricuspid Valve There is no tricuspid valve regurgitation. Tricuspid regurgitation envelope is inadequate for calculation of right ventricular systolic pressure. Great Vessels The asc aorta and aortic arch are normal in size. Venous The inferior vena cava is normal in size and collapses greater than 50% with inspiration. Pericardium/Pleural There is a trivial pericardial effusion. Prior Study Comparison Changes noted compared to prior study dated: 10/14/2022. Increase in aortic valve gradients. Progression of aortic regurgitation. Recommendations, Care & Conclusions Consider a HELEN if clinically appropriate. Measurements 2D Linear Measurements IVSd: 0.85 0.6-0.9/0.6-1.0 cm LVIDd: 5.54 3.9-5.3/4.2-5.9 cm LVIDd Index: 2.92 2.4-3.2/2.2-3.1 cm/m2 LVIDs: 3.37 2.0-3.6 cm LVPWd: 1.05 0.7-1.1 cm LA Diam: 4.30 2.7-3.8/3.0-4.0 cm LAIDs Index: 2.26 1.5-2.3 cm/m2 LV Mass: 251.64 67-162/88-224 g LV Mass Index: 132.44 43-95/49-115 g/m2 LVOT Diam: 2.00 3.0+(-)1.3 cm 2D Systolic Function EF 4C: 62.10 >55% EF 2C: 59.30 >55% EF BiP: 60.90 >55% Mitral Valve MV Pk E: 0.80 MV PK A: 0.78 MV Decel Time: 141.00 E/A: 1.00 E'Lateral: 6.74 E'Medial: 6.53 E/E' Med: 12.20 E/E' Lat: 11.80 PHT: 41.00 MVA PHT: 5.37 Decel [place]: 5.65 Aortic Valve AoV Pk Mike: 2.87 AoV Mn Mike: 2.07 AoV VTI: 0.63 AoV Pk Grad: 33.00 Aov Mn Grad: 19.00 MARISOL Cont.VTI: 1.40 AI Pk Mike: 2.84 AI VTI: 0.93 AI [place]: 2.84 LVOT LVOT Pk Mike: 1.17 LVOT Mn Mike: 0.84 LVOT VTI: 0.28 LVOT Pk Grad: 5.00 LVOT Mn Grad: 3.00 LVOT Diam: 2.00 LVOT Area: 3.14 Diastolic Function MV Pk E: 0.80 MV Pk A: 0.78 E/A: 1.00 E'Medial: 6.53 E/E' Med: 12.20 E' Laterial: 6.74 E/E' Lat: 11.80 Right Ventricle TAPSE (mm): 21.70 TVS' Mike: 11.20 Tricuspid Valve RA Press: 8.00 Great Vessels Aorta Ao Asc: 3.60 2.1-3.4 cm Ao Arch: 3.10 Pulmonary Veins Pulm Vein S/D 1.00 Pulmonary Valve PV Pk Mike: 0.76 Peak PV Grad: 2.00 Updated in Other Vendor System with Status of Final Ras Velazquez MD electronically signed on 10/20/2023 12:26:32 PM with status of Final
== END ==
LOC: HO.CARD 09:55
PROVIDERS: PCP Internal Medicine; Visit Provider Internal Medicine Cardiovascular Disease
DX: Z95.2 Presence of prosthetic heart valve (principal)
CPT/HCPCS: 93306

== ENCOUNTER → 2023-10-19 09:57 | Outpatient (BNV) | payer MEDICARE, SELFPAY | PROVIDERS: PCP Internal Medicine; Visit Provider Internal Medicine | DX: T82.03XA Leakage of heart valve prosthesis, initial encounter (principal); R93.1 Abnormal findings on diagnostic imaging of heart and coronary circulation | CPT/HCPCS: 93306 ==

== ENCOUNTER 2023-11-08 12:24 | Outpatient (AMB) | payer MEDICARE, SELFPAY ==
--- NOTE | 2023-11-08 12:33 | MHC.OFFVIS ---
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 Recent echocardiogram shows [id number] paravalvular aortic regurgitation along with increased gradients. This is a new finding compared to echocardiogram from last year. She has no new symptoms at this time. She denies any worsening exertional shortness of breath, orthopnea, PND. Denies any exertional chest pain or lightheadedness. Has been taking all her medications including aspirin and SBE prophylaxis as needed. Denies any prolonged palpitation irregular heartbeat. She is concerned about this new finding which is appropriate. [facility] Medical History Impaired fasting glucose Menopause syndrome Dyslipidemia Secondary hypertension Atrial flutter Nonrheumatic aortic (valve) stenosis Surgical History Hx of cardiac cath (~11/2016) H/O aortic valve replacement History of colonoscopy Family History Father COPD (chronic obstructive pulmonary disease) Smoker Mother Lung cancer CVD (cardiovascular disease) Maternal Grandmother No problems noted. Brother Bacterial endocarditis Brother No problems noted. Brother No problems noted. Sister No problems noted. Sister No problems noted. Sister No problems noted. Daughter No problems noted. Daughter No problems noted. Social History Housing: House Alcohol intake: current Alcohol intake frequency: holidays/special occasions only Patient Tobacco Use Status: Former Tobacco user Years Smoked: 20 yrs e-Cigarette/Vaping Use: Never Used service: No Current occupational status: employed Cognitive needs: No Hearing needs: No Vision needs: Yes Review of Systems Const Denies chills, Denies fatigue, Denies fever(s), Denies frequent falls, Denies weakness, Denies weight gain and Denies weight loss ENT Denies dizziness Card Denies chest pain, Denies leg edema, Denies lightheadedness, Denies palpitations, Denies dyspnea, Denies dyspnea on exertion, Denies orthopnea and Denies other (loss of consciousness) Resp Denies cough, Denies dyspnea and Denies dyspnea on exertion GI Denies hematochezia and Denies change in stool character Musc Denies abnormal gait, Denies muscle weakness, Denies numbness, Denies radiating pain into limb and Denies tingling Neuro Denies abnormal gait, Denies dizziness, Denies frequent falls, Denies numbness, Denies tingling and Denies weakness Endo Denies fatigue and Denies palpitations Physical Exam Vital Signs: Last Vital Signs Pulse 77 11/08/23 12:34 BP 120/64 11/08/23 12:34 BMI result Body Mass Index 27.6 Const General: cooperative, comfortable, no acute distress, alert, awake and well groomed Nutritional Appearance: average body habitus Orientation/consciousness: patient oriented x3 Limitations: no limitations Neck Neck: Yes trachea midline, Yes supple and Yes no JVD Resp Effort & Inspection: normal respiratory effort Auscultation: clear to auscultation bilaterally Cardio Jugular venous distension: no JVD Palpation: normal PMI Rate: regular rate Rhythm: regular rhythm Heart sounds: S1 normal heart sound present, S2 normal heart sound present, no click, no gallops, Murmur heart sound present diastolic late, soft and at the left sternal border and systolic mid, decrescendo and crescendo and no rubs Skin General skin exam: no rashes or lesions noted Neuro General: patient oriented x3 and no focal motor deficits Extrem General: Yes no clubbing, cyanosis or edema Psych Appearance: grossly normal Office Procedures EKG Details: EKG shows normal sinus rhythm with rightward axis with incomplete right bundle-branch block, unchanged [id number], Complete Assessment & Plan Assessment & Plan (1) Prosthetic valve dysfunction: Code(s): T82.09XA - Other mechanical complication of heart valve prosthesis, initial encounter Category: Medical Plan: 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 Most likely related to her age and activity level. This was discussed with her. Currently she is not having any symptoms associated with. Advised to continue monitor clinically. Symptoms associated with worsening aortic regurgitation were discussed in details. She is advised to call me as soon as possible if she develops any significant symptoms with her activity level. If she has sudden shortness of breath she is advised to come to the emergency room. Follow-up echocardiogram 6 months time to see if there is any significant worsening of her aortic valve function that may require sooner interventions. Will schedule this for in 6 months time. Continue aspirin therapy. Continue statin therapy. Continue SBE prophylaxis as per ACC/[facility] guidelines. Follow up in the clinic in 6 months time, sooner p.r.n.. Thank you for allowing me to partake in the care Coding Level of Care Code Est Pt Level 4 (54107) Diagnoses Prosthetic valve dysfunction T82.09XA CPT Codes EKG - CPT: 82001-[id number], Complete ([id number])
[2023-11-08 12:34] VITALS: BP 120/64; PULSE 77; BMI 27.6
== END 2023-11-08 12:54 | disposition home or self-care (01) ==
PROVIDERS: PCP Internal Medicine; Visit Provider Internal Medicine Cardiovascular Disease
DX: T82.09XA Other mechanical complication of heart valve prosthesis, initial encounter (principal)
CPT/HCPCS: 93010; 99214

== ENCOUNTER → 2023-11-08 12:24 | Outpatient (BNVA) | payer MEDICARE, SELFPAY | PROVIDERS: PCP Internal Medicine; Visit Provider Internal Medicine Cardiovascular Disease | DX: T82.09XD Other mechanical complication of heart valve prosthesis, subsequent encounter (principal) | CPT/HCPCS: 93005; 99212 ==

== ENCOUNTER 2024-01-11 13:45 | Outpatient (AMB) | payer MEDICARE, SELFPAY ==
[2024-01-11 13:48] VITALS: BP 142/66; PULSE 88; O2SAT 97; BMI 28.5
--- NOTE | 2024-01-11 13:48 | A.OFFVIS_ITS ---
Vital Signs 01/11/24 13:48 Height 5 ft 7 in Weight 182 lb BMI 28.5 BP 142/66 H Blood Pressure Location Rt brachial Position Sitting Pulse 88 Pulse Source Doppler Pulse Oximetry (%) 97 Oxygen Delivery Method Room Air Intake Visit Reasons: anna Allergies No Known Allergies [No Known Allergies*] Allergy (Verified 09/28/23 12:09) HPI HPI anna: Details: 68-year-old, former 20 pack-year smoker, quit 10 years prior with underlying history of ANNA previously on CPAP with sleep study over 8 years ago who is interested in being re-evaluated for underlying obstructive sleep apnea. Patient does states that she sleeps on average 9-10 hours, however she does wake up feeling very poorly rested and she has significant daytime sleepiness. Patient today also complains of cough productive of yellowish sputum. [facility] Medical History Impaired fasting glucose Menopause syndrome Dyslipidemia Secondary hypertension Atrial flutter Nonrheumatic aortic (valve) stenosis Surgical History Hx of cardiac cath (~11/2016) H/O aortic valve replacement History of colonoscopy Family History Father COPD (chronic obstructive pulmonary disease) Smoker Mother Lung cancer CVD (cardiovascular disease) Maternal Grandmother No problems noted. Brother Bacterial endocarditis Brother No problems noted. Brother No problems noted. Sister No problems noted. Sister No problems noted. Sister No problems noted. Daughter No problems noted. Daughter No problems noted. Social History (Updated 01/11/24 @ 13:55 by Alyson Cisneros [facility]) Housing: House Alcohol intake: current Alcohol intake frequency: holidays/special occasions only Patient Tobacco Use Status: Former Tobacco user Years Smoked: started in her 20's, 10 cig. a day, quit 8 years ago e-Cigarette/Vaping Use: Never Used service: No Current occupational status: employed Cognitive needs: No Hearing needs: No Vision needs: Yes Review of Systems Const Reports daytime sleepiness, Denies excessive sweating, Denies fatigue, Denies fever(s), Reports lethargy, Reports malaise, Denies night sweats, Denies snoring and Denies weight loss Eyes Denies blurry vision and Denies itchy eyes ENT Denies nasal congestion, Denies post nasal drip, Denies sinus pain, Denies sinus pressure and Denies other ( Thrush) Card Denies chest pain, Denies pedal edema, Denies dyspnea, Denies orthopnea and Denies paroxysmal nocturnal dyspnea Resp Reports cough, Denies hemoptysis, Reports excessive phlegm production, Denies dyspnea, Denies snoring and Denies wheezing GI Denies abdominal pain and Denies heartburn Musc Denies myalgias, Denies arthralgias and Denies joint swelling Skin/Breast Denies rash Neuro Denies memory loss and Denies seizure-like activity Psych Denies abnormal sleep pattern, Denies anxiety and Denies memory loss Endo Denies excessive sweating, Denies fatigue and Denies heat intolerance Manuel/Lymph Denies easy bruising Aller/Immun Denies itchy eyes, Denies seasonal rhinorrhea and Denies wheezing Physical Exam Vital Signs: Last Vital Signs Pulse 88 01/11/24 13:48 BP 142/66 H 01/11/24 13:48 Pulse Ox 97 01/11/24 13:48 Oxygen Delivery Method Room Air 01/11/24 13:48 BMI result Body Mass Index 28.5 Const General: no acute distress and alert Nutritional Appearance: not obese Orientation/consciousness: Other orientation findings ( oriented) HEENT Head: Yes atraumatic Eyes General: appearance normal, both eyes and all related structures Sclerae: sclerae normal EOM: EOMs intact bilaterally Neck Neck: Yes supple Lymphatic: no lymphadenopathy noted Resp Effort & Inspection: normal respiratory effort and no use of accessory muscles Auscultation: clear to auscultation bilaterally Cardio Rate: regular rate Rhythm: regular rhythm Heart sounds: no gallops, no murmurs and no rubs Skin General skin exam: other ( warm) Extrem General: No clubbing, No cyanosis and No edema Assessment & Plan Assessment & Plan (1) ANNA (obstructive sleep apnea): Code(s): G47.33 - Obstructive sleep apnea (adult) (pediatric) Category: Medical Plan: Previous history of obstructive sleep apnea, unrestful sleep, daytime sleepiness. [place] Sleepiness Scale score of 15. Will obtain home sleep study. (2) Bronchitis: Code(s): J40 - Bronchitis, not specified as acute or chronic Category: Medical Plan: Will treat with a course of azithromycin. Orders: Orders RT home sleep study Today G47.33 - Obstructive sleep apnea (adult) (pediatric) Medications: New azithromycin For 250 mg dose pack: take 500 mg today (day 1), then 250 mg for 4 days (days 2-5) PO 6 tabs 0RF J40 - Bronchitis, not specified as acute or chronic Coding Level of Care Code New Pt Level 4 (33204) Diagnoses ANNA (obstructive sleep apnea) G47.33 Bronchitis J40
== END 2024-01-11 14:20 | disposition home or self-care (01) ==
PROVIDERS: PCP Internal Medicine; Visit Provider Internal Medicine Pulmonary Disease
DX: G47.33 Obstructive sleep apnea (adult) (pediatric) (principal); J40 Bronchitis, not specified as acute or chronic
CPT/HCPCS: 99204

== ENCOUNTER → 2024-01-11 13:45 | Outpatient (BNVA) | payer MEDICARE, SELFPAY | PROVIDERS: PCP Internal Medicine; Visit Provider Internal Medicine Pulmonary Disease | DX: G47.33 Obstructive sleep apnea (adult) (pediatric) (principal); J40 Bronchitis, not specified as acute or chronic | CPT/HCPCS: 99202 ==

== ENCOUNTER → 2024-02-23 09:45 | Outpatient (REF) | payer MEDICARE, SELFPAY | LOC: HO.SL 09:45 | PROVIDERS: PCP Internal Medicine; Visit Provider Internal Medicine Pulmonary Disease | DX: G47.33 Obstructive sleep apnea (adult) (pediatric) (principal) | CPT/HCPCS: 95806 ==

== ENCOUNTER → 2024-02-23 09:53 | Outpatient (BNV) | payer MEDICARE, SELFPAY | PROVIDERS: PCP Internal Medicine; Visit Provider Internal Medicine | DX: G47.33 Obstructive sleep apnea (adult) (pediatric) (principal) | CPT/HCPCS: 95806 ==

== ENCOUNTER 2024-03-07 14:04 | Outpatient (AMB) | payer MEDICARE, SELFPAY ==
[2024-03-07 14:08] VITALS: BP 142/58; PULSE 60; O2SAT 96; BMI 28.2
--- NOTE | 2024-03-07 14:08 | MHC.OFFVIS ---
Vital Signs 03/07/24 14:08 Height 5 ft 7 in Weight 180 lb BMI 28.2 BP 142/58 H Blood Pressure Location Rt brachial Position Sitting Pulse 60 Pulse Source Doppler Pulse Oximetry (%) 96 Oxygen Delivery Method Room Air Intake Visit Reasons: rakesh Allergies No Known Allergies [No Known Allergies*] Allergy (Verified 09/28/23 12:09) HPI HPI rakesh: Details: 68-year-old, former 20 pack-year smoker, quit 10 years prior with underlying history of RAKESH previously on CPAP with sleep study over 8 years ago who is interested in being re-evaluated for underlying obstructive sleep apnea. Patient does states that she sleeps on average 9-10 hours, however she does wake up feeling very poorly rested and she has significant daytime sleepiness. Patient today also complains of cough productive of yellowish sputum. After the last office visit patient has completed her sleep study that showed underlying moderate obstructive sleep apnea with AHI of 24. [facility] Medical History Impaired fasting glucose Menopause syndrome Dyslipidemia Secondary hypertension Atrial flutter Nonrheumatic aortic (valve) stenosis Surgical History Hx of cardiac cath (~11/2016) H/O aortic valve replacement History of colonoscopy Family History Father COPD (chronic obstructive pulmonary disease) Smoker Mother Lung cancer CVD (cardiovascular disease) Maternal Grandmother No problems noted. Brother Bacterial endocarditis Brother No problems noted. Brother No problems noted. Sister No problems noted. Sister No problems noted. Sister No problems noted. Daughter No problems noted. Daughter No problems noted. Social History Housing: House Alcohol intake: current Alcohol intake frequency: holidays/special occasions only Patient Tobacco Use Status: Former Tobacco user Years Smoked: started in her 20's, 10 cig. a day, quit 8 years ago e-Cigarette/Vaping Use: Never Used service: No Current occupational status: employed Cognitive needs: No Hearing needs: No Vision needs: Yes Review of Systems Const Denies daytime sleepiness, Denies excessive sweating, Denies fatigue, Denies fever(s), Denies lethargy, Denies malaise, Denies night sweats, Denies snoring and Denies weight loss Eyes Denies blurry vision and Denies itchy eyes ENT Denies nasal congestion, Denies post nasal drip, Denies sinus pain, Denies sinus pressure and Denies other ( Thrush) Card Denies chest pain, Denies pedal edema, Denies dyspnea, Denies orthopnea and Denies paroxysmal nocturnal dyspnea Resp Denies cough, Denies hemoptysis, Denies excessive phlegm production, Denies dyspnea, Denies snoring and Denies wheezing GI Denies abdominal pain and Denies heartburn Musc Denies myalgias, Denies arthralgias and Denies joint swelling Skin/Breast Denies rash Neuro Denies memory loss and Denies seizure-like activity Psych Denies abnormal sleep pattern, Denies anxiety and Denies memory loss Endo Denies excessive sweating, Denies fatigue and Denies heat intolerance Manuel/Lymph Denies easy bruising Aller/Immun Denies itchy eyes, Denies seasonal rhinorrhea and Denies wheezing Physical Exam Vital Signs: Last Vital Signs Pulse 60 03/07/24 14:08 BP 142/58 H 03/07/24 14:08 Pulse Ox 96 03/07/24 14:08 Oxygen Delivery Method Room Air 03/07/24 14:08 BMI result Body Mass Index 28.2 Const General: no acute distress and alert Nutritional Appearance: not obese Orientation/consciousness: Other orientation findings ( oriented) HEENT Head: Yes atraumatic Eyes General: appearance normal, both eyes and all related structures Sclerae: sclerae normal EOM: EOMs intact bilaterally Neck Neck: Yes supple Lymphatic: no lymphadenopathy noted Resp Effort & Inspection: normal respiratory effort and no use of accessory muscles Auscultation: clear to auscultation bilaterally Cardio Rate: regular rate Rhythm: regular rhythm Heart sounds: no gallops, no murmurs and no rubs Skin General skin exam: other ( warm) Extrem General: No clubbing, No cyanosis and No edema Assessment & Plan Assessment & Plan (1) RAKESH (obstructive sleep apnea): Code(s): G47.33 - Obstructive sleep apnea (adult) (pediatric) Category: Medical Plan: Results of sleep study reviewed, underlying moderate obstructive sleep apnea with AHI of 24. Start APAP of 6-16 cm of water. Coding Level of Care Code Est Pt Level 3 (22820) Diagnoses RAKESH (obstructive sleep apnea) G47.33
== END 2024-03-07 14:27 | disposition home or self-care (01) ==
PROVIDERS: PCP Internal Medicine; Visit Provider Internal Medicine Pulmonary Disease
DX: G47.33 Obstructive sleep apnea (adult) (pediatric) (principal)
CPT/HCPCS: 99213

== ENCOUNTER → 2024-03-07 14:04 | Outpatient (BNVA) | payer MEDICARE, SELFPAY | PROVIDERS: PCP Internal Medicine; Visit Provider Internal Medicine Pulmonary Disease | DX: G47.33 Obstructive sleep apnea (adult) (pediatric) (principal) | CPT/HCPCS: 99212 ==

== ENCOUNTER 2024-04-05 11:19 | Outpatient (REF) | payer MEDICARE, SELFPAY ==
[2024-04-05 13:44] LABS: Estimated Average Glucose 105 mg/dL; Hemoglobin A1C 115.0969 umol/L; Hemoglobin A1c % 5.3 % (<6.0)
[2024-04-05 14:11] LABS: Alanine Aminotransferase 27 U/L (0-31); Aspartate Amino Transferase 25 U/L (5-31); Cholesterol 174 mg/dL (<200); Glucose Fasting 97 mg/dL (60-99); HDL Cholesterol 64 mg/dL (>40); LDL Cholesterol Calculated 97 mg/dL (<100); Triglycerides 68 mg/dL (<150)
== END 2024-04-05 11:20 | disposition home or self-care (01) ==
LOC: HO.HMGCLDS 11:19
PROVIDERS: PCP Internal Medicine; Visit Provider Internal Medicine
DX: R73.01 Impaired fasting glucose (principal); E78.5 Hyperlipidemia, unspecified
CPT/HCPCS: 36415; 80061; 82947; 83036; 84450; 84460

== ENCOUNTER 2024-04-10 09:25 | Outpatient (AMB) | payer MEDICARE, SELFPAY ==
[2024-04-10 09:31] VITALS: BP 130/54; PULSE 85; O2SAT 97; BMI 28.8
--- NOTE | 2024-04-10 09:31 | MHC.PC.OV ---
Vital Signs 04/10/24 09:31 Height 5 ft 7 in Weight 184 lb BMI 28.8 BP 130/54 L Blood Pressure Location Rt brachial Position Sitting Pulse 85 Pulse Source Pulse Oximeter Pulse Oximetry (%) 97 Oxygen Delivery Method Room Air Intake Visit Reasons: Annual PE Intake Note: Pt is here today for her PE: Last mammogram 04/15/23, bone density scan 04/01/20, colonoscopy 07/07/17 Allergies No Known Allergies [No Known Allergies*] Allergy (Verified 04/14/24 00:33) Medication List - Last Reconciled 04/10/24 by Moira Pate MD amoxicillin 2,000 mg (4 x 500 mg) PO ONCE 1 day aspirin 81 mg PO DAILY atorvastatin (Lipitor) 40 mg PO QPM hydroxyzine HCl 25 mg PO BEDTIME PRN metoprolol succinate ER 25 mg PO DAILY multivitamin 1 tab PO DAILY Tobacco use date assessed: 04/10/24 Fall risk assessment: No Falls in past year Last assessed Fall Risk: 04/10/24 Dental Screening Dental Screen Date: 04/10/24 Did you have a dental visit in the last 12 months?: Yes Did you have a dental problem in the last 6 months where you did not have access to dental care?: No Was dental information given to patient?: Patient has dentist HPI Annual PE HPI Details - The patient is a 68 year old female with history of severe aortic stenosis status post aortic valve replacement, has hypertension, hyperlipidemia, obstructive sleep apnea , presenting for her physical exam - history of Aortic valve disease s/p AVR 8 years ago: currently followed by Cardiology with recent echocardiogram done showed possible valve dysfunction. has an appointment for repeat echocardiogram next year and follow-up with Cardiology on 05/03/2024 - Obstructive sleep apnea: Diagnosed previously; reports difficulty in adhering to CPAP use due to discomfort, has not yet been fitted with a new CPAP mask due to communication delays. Prior sleep study indicated patient stopped breathing 24 times/hour. - Hypertension: Blood pressure has been elevated in the past few visits, reaching 140s systolic; normal at home. No recent changes in antihypertensive therapy. - Hyperlipidemia: LDL cholesterol was recorded at 97 mg/dL, slightly elevated; target LDL discussed as 70 mg/dL. -- Mammogram scheduled for April 20, 2024 - Bone density screening suggested to be scheduled along with mammogram - Recent immunizations include flu and COVID booster; RSV vaccine not administered - Patient up to date with shingles and pneumonia vaccines - Eye exam conducted in November 2023 - Colonoscopy history: Last normal in 2017; next due in 2027 [facility] Medical History Impaired fasting glucose Menopause syndrome Dyslipidemia Secondary hypertension Atrial flutter Nonrheumatic aortic (valve) stenosis Surgical History Hx of cardiac cath (~11/2016) H/O aortic valve replacement History of colonoscopy Family History Father COPD (chronic obstructive pulmonary disease) Smoker Mother Lung cancer CVD (cardiovascular disease) Maternal Grandmother No problems noted. Brother Bacterial endocarditis Brother No problems noted. Brother No problems noted. Sister No problems noted. Sister No problems noted. Sister No problems noted. Daughter No problems noted. Daughter No problems noted. Social History Housing: House Alcohol intake: current Alcohol intake frequency: a few times a week Alcohol type: beer Patient Tobacco Use Status: Former Tobacco user Years Smoked: started in her 20's, 10 cig. a day, quit 8 years ago Smoked in Last 30 Days: No e-Cigarette/Vaping Use: Never Used Use of substances other than those prescribed or required for medical reasons: No Advance Directives: Yes Advance Directives on File: Yes Advance Directives Date on File: 09/11/21 Do you have a plan to hurt others: No Plan service: No Current occupational status: employed Cognitive needs: No Hearing needs: No Vision needs: Yes Questionnaire PHQ-9 Over the last 2 weeks, how often have you been bothered by any of the following problems? 1. Little interest or pleasure in doing things: not at all 2. Feeling down, depressed, or hopeless: not at all 3. Trouble falling or staying asleep, or sleeping too much: more than half the days 4. Feeling tired or having little energy: several days 5. Poor appetite or overeating: not at all 6. Feeling bad about yourself - or that you are a failure or have let yourself or your family down: not at all 7. Trouble concentrating on things, such as reading the newspaper or watching television: several days 8. Moving or speaking so slowly that other people could have noticed. Or the opposite - being so fidgety or restless that you have been moving around a lot more than usual: not at all 9. Thoughts that you would be better off or of hurting yourself in some way: not at all Total score: 4 Source: Developed by Drs. Aric Owens, Estefanía Quezada, Rene Rivera and colleagues, with an educational camron from [employer]. Thrive Questionnaire Date Thrive assessed: 09/28/23 I am a: Patient What is your living situation today?: I have a steady place to live Within the past 12 months, did the food you bought not last and you didn't have the money to get more?: Never true Within the past 12 months, did you worry whether your food would run out before you got money to buy more?: Never true Do you have trouble paying for medicines?: No Do you have trouble getting transportation to medical appointments?: No Do you have trouble paying your heating and electricity bill?: No Do you have trouble taking care of your child, family member or friend?: No Do you have trouble with day-to-day activities such as bathing, preparing meals, shopping, managing finances, etc.?: No Are you currently unemployed and looking for a job?: No Are you interested in more education?: No Please select the resources that you would like help with: None Currently or been in a relationship where the following occur: No concerns reported THRIVE Score: 0 AUDIT C Alcohol Use Questionnaire (AUDIT-C) 1. How often do you have a drink containing alcohol?: 2-3 times a week 2. How many drinks containing alcohol do you have on a typical day when you are drinking?: 3 or 4 3. How often do you have six or more drinks on one occasion?: Never Total Score: 4 BE-7 AMB Questionnaire BE-7 Date BE - 7 assessed: 09/28/23 Feeling nervous, anxious, or on edge: 1 = Several days Not being able to stop or control worryin = Nearly every day Worrying too much about different things: 1 = Several days Trouble relaxin = Several days Being so restless that it is hard to sit still: 1 = Several days Becoming easily annoyed or irritable: 1 = Several days Feeling afraid as if something awful might happen: 0 = Not at all Total BE-7 score (0-4 normal; 5-9 mild; 10-14 moderate; 15-21 severe): 8 Source: Developed by Drs. Aric Owens, Estefanía Quezada, Rene Rivera and colleagues, with an educational camron from [employer]. Review of Systems Const Denies daytime sleepiness, Denies excessive sweating, Denies fatigue, Denies fever(s), Denies lethargy, Denies malaise, Denies night sweats, Denies snoring and Denies weight loss Eyes Denies blurry vision and Denies itchy eyes ENT Denies nasal congestion, Denies post nasal drip, Denies sinus pain, Denies sinus pressure and Denies other ( Thrush) Card Denies chest pain, Denies pedal edema, Denies dyspnea, Denies orthopnea and Denies paroxysmal nocturnal dyspnea Resp Denies cough, Denies hemoptysis, Denies excessive phlegm production, Denies dyspnea, Denies snoring and Denies wheezing GI Denies abdominal pain and Denies heartburn Reports no additional complaints Musc Denies myalgias, Denies arthralgias and Denies joint swelling Skin/Breast Denies rash Neuro Denies memory loss and Denies seizure-like activity Psych Denies abnormal sleep pattern, Denies anxiety and Denies memory loss Endo Denies excessive sweating, Denies fatigue and Denies heat intolerance Manuel/Lymph Denies easy bruising Aller/Immun Denies itchy eyes, Denies seasonal rhinorrhea and Denies wheezing Physical exam (Primary Care) Vital Signs: Last Vital Signs Pulse 85 04/10/24 09:31 BP 130/54 L 04/10/24 09:31 Pulse Ox 97 04/10/24 09:31 Oxygen Delivery Method Room Air 04/10/24 09:31 BMI result Body Mass Index 28.8 Tobacco/Smoking Status: Tobacco use Status Tobacco use date assessed 04/10/24 12 09:35 Patient Tobacco Use Status Former Tobacco user 04/10/24 09:35 e-Cigarette/Vaping Use Never Used 04/10/24 09:35 PHQ-9: PHQ-9 Score PHQ-9: Total score 4 04/10/24 10:19 Thrive Assessment: Date of Thrive Assessment Date Thrive assessed 09/28/23 04/10/24 09:35 Currently or been in a relationship where the following occur: No concerns reported Advance Care Planning discussion: Completed/Scanned Date of discussion: 04/10/24 Who was present: patient Forms completed: Health Care Proxy Time spent: 16-45 minutes Actual minutes spent: 2 Const General: comfortable and no acute distress Orientation/consciousness: patient oriented x3 HENMT Ears: hearing grossly normal bilaterally, external ears normal, TM's normal bilaterally and EAC's normal General nose exam: Normal external nose present Mouth: oropharynx normal and moist mucous membranes Eyes General: appearance normal, both eyes and all related structures Conjunctivae: conjunctivae normal Pupils: Equal, round and reactive pupils present EOM: EOMs intact bilaterally Neck Neck: Yes full ROM, Yes no lymphadenopathy and Yes supple Chest Breast/axilla palpation: normal palpation of the breasts Resp Effort & Inspection: normal respiratory effort and able to speak in complete sentences Auscultation: clear to auscultation bilaterally Cardio Rate: regular rate Rhythm: regular rhythm Heart sounds: S1 normal heart sound present, S2 normal heart sound present and Murmur heart sound present (Soft murmur heard on left sternal border) GI Palpation (GI): Soft to palpation, nontender and no masses Auscultation: normal bowel sounds Back/Spine/Pelvis Back: No back tenderness Skin General skin exam: no rashes or lesions noted Neuro General: patient oriented x3, gait normal, tone normal, moves all extremities, Normal light touch and pain sensation and no focal motor deficits Cranial nerves: Yes Equal, round and reactive pupils present Cognition (Neuro): normal cognition Gait exam (Neuro): Normal gait present Motor exam (neuro): 5/5 motor strength present throughout Extrem General: Yes full ROM, Yes no joint enlargement, Yes no pedal edema, Yes no calf tenderness and Yes normal gait Psych Appearance: grossly normal and well kempt Mental Status: mental status grossly normal Speech and movement: Normal speech and movement present Affect: normal affect Results Reviewed Results Reviewed: therese: Carly Cox Age/Sex: 68/F : 1955 Unit#: [id number] Attend Dr: Moira Pate MD Re04/05/24 Status: DEP [facility] [place]ch: SPEC : [id number] WALLACE: 04/05/24 STATUS: COMP REQ : [id number] RECD: 04/05/24-[address]: Moira Pate MD COMP: 04/05/24-1410 ENTERED: 04/05/[address]: ORDERED: Glu Fasting, AST, ALT, Lipid Panel Test Result Flag Reference FBS 97 60-99 mg/dL AST (GOT) 25 5-31 U/L ALT (GPT) 27 0-31 U/L Triglyceride 68 <150 mg/dL Desirable Triglyceride: less than 150 mg/dL Borderline High Triglyceride 150-199 mg/dL High Triglyceride: 200-499 mg/dL Very High Triglyceride: greater than or equal to 5OO mg/dL Cholesterol 174 <200 mg/dL Desirable Cholesterol: less than 200 mg/dL Borderline High Cholesterol: 200-239 mg/dL High Cholesterol: greater than 239 mg/dL LDL Calculated 97 <100 mg/dL Desirable LDL: less than 100 mg/dL Near Optimal/Above Optimal LDL: 110-129 mg/dL Borderline High LDL: 130-159 mg/dL High LDL: 160-189 mg/dL Very High LDL: greater than or equal to 190 mg/dL HDL 64 >40 mg/dL Desirable HDL: greater than 40 mg/dL Note: This HDL assay may give artificially low results in patients with liver disease. Coding Level of Care Code Est Pt Prev Care >65y(83421) Diagnoses Annual visit for general adult medical examination with abnormal findings Z00.01 H/O aortic valve replacement Z95.2 Secondary hypertension I15.9 Dyslipidemia E78.5 Impaired fasting glucose R73.01 Prosthetic valve dysfunction T82.09XA ANNA (obstructive sleep apnea) G47.33 Encounter for counseling regarding advance directives Z71.89 Additional Codes Vital Signs *Quality* - Advance Care Planning discussion: Completed/Scanned ([id number]) Vital Signs *Quality* - Time spent: 16-45 minutes ([id number]) Assessment & Plan Assessment & Plan (1) Annual visit for general adult medical examination with abnormal findings: Code(s): Z00.01 - Encounter for general adult medical examination with abnormal findings Category: Medical Plan: Reviewed recent fasting lab results with patient. Continue regular dental visit every 6 months and regular eye exams, at least every 2 years. Take adequate calcium in diet and vitamin-D 3 at 2000 IU per cap once a day, in addition to weight-bearing exercises to help maintain good muscle tone and weight control. I up-to-date with her screening mammogram, already has 1 scheduled next year, ordered a bone density scan . Up-to-date with all her vaccinations except for the RSV vaccine, up-to-date with her screening colonoscopy not yet due until 2027 (2) H/O aortic valve replacement: Comment: 01/23/2016 with trifecta bioprosthetic valve Code(s): Z95.2 - Presence of prosthetic heart valve Category: Surgical Plan: Prosthetic valve dysfunction noted on recent echocardiogram, continued to be monitored by Cardiology, has an appointment for follow-up with Dr. Sharma on 05/03/2024. Currently on aspirin 81 mg daily. Needs premedication with amoxicillin prior to any procedure (3) Secondary hypertension: Code(s): I15.9 - Secondary hypertension, unspecified Category: Medical Plan: Blood pressure stable controlled at present time, continued on metoprolol succinate ER 25 mg daily (4) Dyslipidemia: Code(s): E78.5 - Hyperlipidemia, unspecified Category: Medical Plan: Recent fasting lipids reviewed with patient, goal LDL cholesterol less than 70 mg per dL. Will continue on current dose of atorvastatin 40 mg daily reinforced importance of following a low-cholesterol diet and will repeat another fasting lipid panel in October, as patient states she will be out of town will be back in the summer (5) Impaired fasting glucose: Code(s): R73.01 - Impaired fasting glucose Category: Medical Plan: Your previous fasting blood sugars were elevated above 100 mg/dL. Impaired glucose metabolism increases the risk for developing diabetes mellitus type 2, as well as heart attack and stroke later on. Lifestyle changes that promotes weight loss, healthy eating habits, and regular exercise are important, and can prevent the progression to diabetes (6) Prosthetic valve dysfunction: Code(s): T82.09XA - Other mechanical complication of heart valve prosthesis, initial encounter Category: Medical Plan: Currently followed by Cardiology (7) ANNA (obstructive sleep apnea): Code(s): G47.33 - Obstructive sleep apnea (adult) (pediatric) Category: Medical Plan: Currently on CPAP, awaiting new supplies (8) Encounter for counseling regarding advance directives: Code(s): Z71.89 - Other specified counseling Plan: Initiated the conversation about Advanced Directives. Advanced Directives help patients prepare for current and future decisions about their medical treatment and place of care. Discussed with patient that it is a process where a patients current condition and prognosis are reviewed, their wishes for information regarding their illness are elicited, and likely medical dilemmas are presented and options discussed. Healthcare proxy form completed today, MOLST already done. These forms can be amended as needed, reviewed yearly and make changes as needed Orders: Orders XR DEXA axial skeleton 04/10/24 Z78.0 - Asymptomatic menopausal state Alanine Aminotransferase 10/17/24 E78.5 - Hyperlipidemia, unspecified, G47.33 - Obstructive sleep apnea (adult) (pediatric), I15.9 - Secondary hypertension, unspecified, N95.1 - Menopausal and female climacteric states, R73.01 - Impaired fasting glucose, T82.09XA - Other mechanical complication of heart valve prosthesis, initial encounter, Z00.01 - Encounter for general adult medical examination with abnormal findings, Z71.89 - Other specified counseling, Z95.2 - Presence of prosthetic heart valve Vitamin D 25-OH Total 10/17/24 E78.5 - Hyperlipidemia, unspecified, G47.33 - Obstructive sleep apnea (adult) (pediatric), I15.9 - Secondary hypertension, unspecified, N95.1 - Menopausal and female climacteric states, R73.01 - Impaired fasting glucose, T82.09XA - Other mechanical complication of heart valve prosthesis, initial encounter, Z00.01 - Encounter for general adult medical examination with abnormal findings, Z71.89 - Other specified counseling, Z95.2 - Presence of prosthetic heart valve Basic Metabolic Panel Fasting 10/17/24 E78.5 - Hyperlipidemia, unspecified, G47.33 - Obstructive sleep apnea (adult) (pediatric), I15.9 - Secondary hypertension, unspecified, N95.1 - Menopausal and female climacteric states, R73.01 - Impaired fasting glucose, T82.09XA - Other mechanical complication of heart valve prosthesis, initial encounter, Z00.01 - Encounter for general adult medical examination with abnormal findings, Z95.2 - Presence of prosthetic heart valve Lipid Panel 10/17/24 E78.5 - Hyperlipidemia, unspecified, G47.33 - Obstructive sleep apnea (adult) (pediatric), I15.9 - Secondary hypertension, unspecified, N95.1 - Menopausal and female climacteric states, R73.01 - Impaired fasting glucose, T82.09XA - Other mechanical complication of heart valve prosthesis, initial encounter, Z00.01 - Encounter for general adult medical examination with abnormal findings, Z71.89 - Other specified counseling, Z95.2 - Presence of prosthetic heart valve Aspartate Amino Transferase 10/17/24 E78.5 - Hyperlipidemia, unspecified, G47.33 - Obstructive sleep apnea (adult) (pediatric), I15.9 - Secondary hypertension, unspecified, N95.1 - Menopausal and female climacteric states, R73.01 - Impaired fasting glucose, T82.09XA - Other mechanical complication of heart valve prosthesis, initial encounter, Z00.01 - Encounter for general adult medical examination with abnormal findings, Z71.89 - Other specified counseling, Z95.2 - Presence of prosthetic heart valve
== END 2024-04-10 13:52 | disposition home or self-care (01) ==
PROVIDERS: PCP Internal Medicine; Visit Provider Internal Medicine
DX: Z00.01 Encounter for general adult medical examination with abnormal findings (principal); Z95.2 Presence of prosthetic heart valve; I15.9 Secondary hypertension, unspecified; E78.5 Hyperlipidemia, unspecified; R73.01 Impaired fasting glucose; T82.09XA Other mechanical complication of heart valve prosthesis, initial encounter; G47.33 Obstructive sleep apnea (adult) (pediatric); Z71.89 Other specified counseling

== ENCOUNTER → 2024-04-10 09:25 | Outpatient (BNVA) | payer MEDICARE, SELFPAY | PROVIDERS: PCP Internal Medicine; Visit Provider Internal Medicine | DX: Z00.01 Encounter for general adult medical examination with abnormal findings (principal); I10 Essential (primary) hypertension; E78.5 Hyperlipidemia, unspecified; G47.33 Obstructive sleep apnea (adult) (pediatric); I15.9 Secondary hypertension, unspecified; R73.01 Impaired fasting glucose; T82.09XA Other mechanical complication of heart valve prosthesis, initial encounter; X58.XXXA Exposure to other specified factors, initial encounter; Y93.9 Activity, unspecified; Y92.9 Unspecified place or not applicable; Y99.9 Unspecified external cause status; Z71.89 Other specified counseling; N95.1 Menopausal and female climacteric states | CPT/HCPCS: 96127; 99397; 99497 ==

== ENCOUNTER 2024-04-12 19:48 | Emergency (ER) | payer MEDICARE, SELFPAY ==
--- NOTE | ~2024-04-12 | XR_ITS ---
EXAMINATION: XR CHEST CLINICAL INFORMATION: Chest pain COMPARISON: Chest radiograph 07/13/2017 TECHNIQUE: Frontal view of the chest was obtained. FINDINGS: Again seen is a median sternotomy and aortic prosthetic valve. No other significant abnormality is noted involving the heart, lungs, mediastinum, bony thorax or soft tissues. XR/XR chest 1V IMPRESSION: No acute intrathoracic disease. Electronically signed by: Konrad Adler MD 04/12/2024 09:41 PM EST
[2024-04-12 19:51] VITALS: BP 201/69; PULSE 108; RESP 22; TEMP 36.1; O2SAT 99; BMI 25.8
--- NOTE | 2024-04-12 19:52 | ED_ITS ---
HPI - General Adult General Chief complaint: Dyspnea Stated complaint: sob Time Seen by Provider: 04/12/24 20:05 Source: patient and family Mode of arrival: ambulatory Limitations: no limitations History of Present Illness ED Provider: DR. Blackman HPI narrative: A 68-year-old female history of aortic valve replacement in 2016 that is recently was checked by market master and echocardiogram found to be functioning abnormally and patient was instructed to come to the ER if any shortness of breath, patient been having shortness of breath for the past 3 days, patient is known to have sleep apnea and uses CPAP machine at night that has been using it for the past 2 nights for worsening of breathing at nighttime, declined exertional dyspnea or exertional chest pain, no lower extremity swelling or edema, no orthopnea. Related Data Home Medications ?Medication ?Instructions ?Recorded ?Confirmed aspirin 81 mg tablet,delayed 81 mg PO DAILY 03/18/20 04/10/24 release multivitamin 1 tab PO DAILY 03/18/20 04/10/24 hydroxyzine HCl 25 mg tablet 25 mg PO BEDTIME PRN 03/29/23 04/10/24 Previous Rx's ?Medication ?Instructions ?Recorded amoxicillin 500 mg capsule 2,000 mg (4 x 500 mg) PO ONCE 1 03/05/23 day #4 caps atorvastatin 40 mg tablet (Lipitor) 40 mg PO QPM #90 tabs 03/29/23 metoprolol succinate 25 mg 25 mg PO DAILY #90 tabs 03/29/23 tablet,extended release 24 hr Allergies Allergy/AdvReac Type Severity Reaction Status Date / Time No Known Allergies Allergy Verified 04/12/24 19:53 [No Known Allergies*] Review of Systems 2 Review of Systems: All other systems are reviewed and are negative Constitutional: Reports as per HPI and Reports no additional constitutional complaints Eyes: Reports as per HPI and Reports no additional eye complaints Reports system reviewed and no additional complaints, except as documented Cardiovascular: Reports as per HPI and Reports no additional cardiovascular complaints Respiratory: Reports as per HPI and Reports no additional respiratory complaints Gastrointestinal: Reports as per HPI and Reports no additional gastrointestinal complaints Genitourinary: Reports no additional female genitourinary complaints Musculoskeletal: Reports no additional musculoskeletal complaints Skin/Breast: Reports system reviewed and no additional complaints, except as docu Psychiatric: Reports no additional psychiatric complaints Endocrine: Reports no additional endocrine complaints Hematologic/Lymphatic: Reports no additional hematologic/lymphatic complaints Allergic/Immunologic: Reports no additional allergic/immunologic complaints Reports system reviewed and no additional complaints, except as documented and Reports Abnormal speech present [facility] Past Medical History Medical History Impaired fasting glucose Menopause syndrome Dyslipidemia Secondary hypertension Atrial flutter Nonrheumatic aortic (valve) stenosis Surgical History Hx of cardiac cath (~11/2016) H/O aortic valve replacement History of colonoscopy Family History Family History Father COPD (chronic obstructive pulmonary disease) Smoker Mother Lung cancer CVD (cardiovascular disease) Maternal Grandmother No problems noted. Brother Bacterial endocarditis Brother No problems noted. Brother No problems noted. Sister No problems noted. Sister No problems noted. Sister No problems noted. Daughter No problems noted. Daughter No problems noted. Social History Social History Housing: House Alcohol intake: current Alcohol intake frequency: a few times a week Alcohol type: beer Patient Tobacco Use Status: Former Tobacco user Years Smoked: started in her 20's, 10 cig. a day, quit 8 years ago Smoked in Last 30 Days: No e-Cigarette/Vaping Use: Never Used Use of substances other than those prescribed or required for medical reasons: No Advance Directives: Yes Advance Directives on File: Yes Advance Directives Date on File: 09/11/21 Do you have a plan to hurt others: No Plan service: No Current occupational status: employed Cognitive needs: No Hearing needs: No Vision needs: Yes Physical Exam ED Vital Signs: Vital Signs - 24 hr 04/12/24 19:51 04/12/24 22:44 04/12/24 23:48 Temperature 97.0 F 97.8 F 97.8 F Pulse Rate 108 H 85 85 Respiratory Rate 22 H 19 19 Blood Pressure 201/69 H 127/48 L 127/48 L Pulse Oximetry 99 95 95 Oxygen Delivery Method Room Air Room Air BMI result Body Mass Index 25.8 Vital signs have been reviewed and appear to be correct. Blood pressure elevated. Heart rate normal. Respiratory rate normal. Temperature normal. Oxygen saturation normal. Appearance: Alert. Oriented X3. No acute distress. Head: Normal external exam. Normocephalic. Atraumatic. No [place] signs noted. No raccoon eyes noted Eyes: PERRLA. EOMI. Conjunctiva and sclera normal. Eyelids normal. ENT: TM's Normal. Pharynx normal. Uvula midline. Moist mucous membranes. No trismus noted. No drooling noted. No muffled voice noted. Neck: Normal inspection. Neck supple. FROM. No adenopathy. Thyroid Normal. No meningeal signs. No neck mass noted. CVS: Normal heart rate and rhythm. Heart sound normal. No murmurs noted. Pulses normal throughout. Respiratory: No respiratory distress. Painless inspiration. Breath sounds normal. No wheezes/rales/rhonchi noted. Chest nontender. No accessory muscle usage noted or decreased air movement noted. Abdomen: Soft and nontender. Bowel sounds normal in all 4 quadrants. No distention noted. No organomegaly noted. No visible injury noted. Back: No CVA tenderness. Full range of motion noted. Skin: Skin warm and dry. Normal skin color. Normal skin turgor. No rashes/lesions/lacerations noted. Extremities: No lower extremity edema. Extremities exhibit normal range of motion. Extremities nontender. Neuro: Oriented X 3. Cranial nerve exam: II-XII are grossly intact No motor deficit. No sensory deficit. Reflexes normal. Course Course Course Narrative: RME: 68 yold female presents to the ED for SOB for the past 3 days on extertion. labs EKG ordered. Patietn hypertensive. Will be brought to the main ED. Reevaluation(s) Reevaluation #1: Patient in the emergency department is asymptomatic now, no chest pain, no shortness of breath, unremarkable x-ray of the chest, negative troponin x2, no ischemic change on the EKG. Review recent echocardiogram showed malfunctioning bioprosthetic aortic valve. Patient hemodynamically stable at this point was instructed to follow-up with Dr. Sharma market master this week patient is scheduled to see him May 03 with repeat echocardiogram but patient was instructed to move her appointment sooner preferably this week. Time: 23:33 Medications Administered Discontinued Medications Generic Name Dose Route Start Last Admin Trade Name Freq PRN Reason Stop Dose Admin Amlodipine Besylate 5 mg 04/12/24 22:44 04/12/24 23:04 Amlodipine Besylate 5 Mg Tablet PO 04/12/24 22:45 Not Given ONCE ONE Protocol Medical Decision Making Differential Diagnosis Differential Diagnoses: The differential diagnosis associated with the presentation includes (ACS, pneumonia, pneumothorax, pleural effusion, CHF, electrolyte derangement, severe anemia.) Admission/Observation Consideration of admission/observation: Escalation of care including admission/observation considered Lab Data MDM Lab Attestation statement: I reviewed the patient's lab results. 04/12/24 20:07 04/12/24 20:07 Labs: Lab Results 04/12/24 04/12/24 04/12/24 Range/Units 20:07 20:08 22:55 WBC 8.6 (4.8-10.8) X10*3/uL RBC 3.92 L (4.20-5.50) X10*6/uL Hgb 13.1 (12.0-16.0) g/dl Hct 36.9 L (37.0-47.0) % MCV 94.1 (80.0-98.0) fL MCH 33.4 H (27.0-33.0) pg MCHC 35.5 H (31.0-35.0) g/dl RDW 12.2 (11.0-16.0) % Plt Count 260 (160-400) X10*3/uL MPV 10.7 (9.4-12.3) fL Immature Gran % (Auto) 0.2 (0.0-0.4) % Neut % (Auto) 48.1 (45-73) % Lymph % (Auto) 41.1 H (20-40) % [place] % (Auto) 7.0 (2-11) % Eos % (Auto) 2.9 (0-4) % Baso % (Auto) 0.7 (0-2) % Lymph # (Auto) 3.5 (1.2-4.9) X10*3/uL [place] # (Auto) 0.6 (0.1-1.2) X10*3/uL Eos # (Auto) 0.3 (0.0-0.4) X10*3/uL Baso # (Auto) 0.1 (0.0-0.2) X10*3/uL Abs Immat Gran (auto) 0.02 (0.00-0.03) X10*3/uL Absolute Neuts (auto) 4.1 (2.0-8.3) x10*3/uL Absolute Nucleated RBC 0.000 (0.0-0.012) X10*3/uL Nucleated RBC % (auto) 0.0 (0.0-0.2) /100WBC PT 10.0 L (10.9-12.4) SEC INR 0.9 (0.9-1.1) APTT 31.2 (26.0-36.8) SEC Sodium 142 (135-145) mmol/L Potassium 4.1 (3.3-5.1) mmol/L Chloride 106 (96-108) mmol/L Carbon Dioxide 26 (22-29) mmol/L Anion Gap 14 (12-20) BUN 15 (9-16) mg/dL Creatinine 0.78 (0.5-1.4) mg/dL Estim Creat Clear Calc 69.4 Estimated GFR > 60 Random Glucose 125 H (60-115) mg/dL Calcium 8.8 D (8.4-10.2) mg/dL Total Bilirubin 0.3 (0.0-1.0) mg/dL AST 26 (5-31) U/L ALT 30 (0-31) U/L Alkaline Phosphatase 62 (39-117) U/L Troponin I High Sens < 2.7 < 2.7 (<3.5-17.0) ng/L Total Protein 7.2 (6.5-8.0) g/dL Albumin 4.1 (3.5-5.0) g/dL Independent Interpretation I performed an independent interpretation of an: Plain X-Ray (Chest: No acute intrathoracic pathology.) Radiology Impression Discussion of test interpretation with radiology: I have reviewed the radiologist's reading. Discharge Plan Discharge Clinical Impression: Dyspnea Patient Disposition: Home, Self-Care Instructions: Dyspnea (ED) Prescriptions: No Action amoxicillin 500 mg capsule 2,000 mg PO ONCE 1 Days Qty: 4 1RF Rx Instructions: take 4 tabs (at once) 1hr before any dental procedure aspirin 81 mg tablet,delayed release (DR/EC) 81 mg PO DAILY multivitamin Tablet 1 tab PO DAILY hydroxyzine HCl 25 mg tablet 25 mg PO BEDTIME PRN metoprolol succinate 25 mg tablet extended release 24 hr 25 mg PO DAILY Qty: 90 3RF atorvastatin [Lipitor] 40 mg tablet 40 mg PO QPM Qty: 90 3RF Referrals: Moira Pate MD [Primary Care Provider] - Omar Sharma MD [Physician] - Interventions: ED Discharge Assessment Last Done: 04/12/24 23:48 Discharge Date/Time: 04/12/24 23:48 Print Language: Djib[place]ian
--- NOTE | 2024-04-12 20:01 | ECG_ITS ---
Test Reason : CHEST PAIN Blood Pressure : / mmHG Vent. Rate : 103 BPM Atrial Rate : 103 BPM P-R Int : 158 ms QRS Dur : 092 ms QT Int : 352 ms P-R-T Axes : 031 092 045 degrees QTc Int : 461 ms Sinus tachycardia Rightward axis Incomplete right bundle branch block Borderline ECG No previous ECGs available Referred By: Donn Blackman Electronically Signed By:Doug Moody
--- NOTE | 2024-04-12 20:09 | MHC.EDTECH ---
Patient ekg was a bit delay because ekg machine was not working .
[2024-04-12 20:14] LABS: Basophils Absolute Auto 0.1 X10*3/uL (0.0-0.2); Basophils Percent Auto 0.7 % (0-2); Eosinophils Absolute Auto 0.3 X10*3/uL (0.0-0.4); Eosinophils Percent Auto 2.9 % (0-4); Hematocrit 36.9 % (37.0-47.0); Hemoglobin 13.1 g/dl (12.0-16.0); Imm Gran Abs Auto 0.02 X10*3/uL (0.00-0.03); Imm Gran Pct Auto 0.2 % (0.0-0.4); Lymphocytes Absolute Auto 3.5 X10*3/uL (1.2-4.9); Lymphocytes Percent Auto 41.1 % (20-40); MANUAL DIFF FLAG NO; Mean Corpuscular HGB Conc 35.5 g/dl (31.0-35.0); Mean Corpuscular Hemoglobin 33.4 pg (27.0-33.0); Mean Corpuscular Volume 94.1 fL (80.0-98.0); Mean Platelet Volume 10.7 fL (9.4-12.3); Monocytes Absolute Auto 0.6 X10*3/uL (0.1-1.2); Neutrophils Absolute Auto 4.1 x10*3/uL (2.0-8.3); Neutrophils Percent Auto 48.1 % (45-73); Platelet Count 260 X10*3/uL (160-400); Red Blood Count 3.92 X10*6/uL (4.20-5.50); Red Cell Distribution Width 12.2 % (11.0-16.0); White Blood Count 8.6 X10*3/uL (4.8-10.8)
[2024-04-12 20:26] LABS: INTERNATIONAL NORM RATIO 0.9 (0.9-1.1)
[2024-04-12 20:28] LABS: Partial Thromboplastin Time 31.2 SEC (26.0-36.8)
[2024-04-12 20:37] LABS: Alanine Aminotransferase 30 U/L (0-31); Albumin Level 4.1 g/dL (3.5-5.0); Alkaline Phosphatase 62 U/L (39-117); Anion Gap 14 (12-20); Aspartate Amino Transferase 26 U/L (5-31); Bilirubin Total 0.3 mg/dL (0.0-1.0); Blood Urea Nitrogen 15 mg/dL (9-16); Calcium 8.8 mg/dL (8.4-10.2); Carbon Dioxide 26 mmol/L (22-29); Chloride 106 mmol/L (96-108); Creatinine Clr Calc Pharmacy 69.4; Estimated Glomerular Filt Rate > 60; Glucose Random 125 mg/dL (60-115); Potassium 4.1 mmol/L (3.3-5.1); Sodium 142 mmol/L (135-145); Total Protein 7.2 g/dL (6.5-8.0)
[2024-04-12 20:44] LABS: Troponin-I High Sensitivity < 2.7 ng/L (<3.5-17.0)
[2024-04-12 22:44] VITALS: BP 127/48; PULSE 85; RESP 19; TEMP 36.6; O2SAT 95
[2024-04-12 23:25] LABS: Troponin-I High Sensitivity < 2.7 ng/L (<3.5-17.0)
[2024-04-12 23:48] VITALS: BP 127/48; PULSE 85; RESP 19; TEMP 36.6; O2SAT 95
== END 2024-04-12 23:48 | disposition home or self-care (01) ==
PROVIDERS: Physician Assistant; Emergency Provider Emergency Medicine; PCP Internal Medicine
DX: R06.02 Shortness of breath (principal); R00.0 Tachycardia, unspecified; I45.10 Unspecified right bundle-branch block; Z79.899 Other long term (current) drug therapy
CPT/HCPCS: 36415; 71045; 80053; 83880; 84484; 85025; 85610; 85730; 93005; 99283; 99284

== ENCOUNTER → 2024-04-12 20:01 | Outpatient (BNV) | payer MEDICARE, SELFPAY | PROVIDERS: Emergency Provider Emergency Medicine; PCP Internal Medicine; Visit Provider Internal Medicine Cardiovascular Disease | DX: R00.0 Tachycardia, unspecified (principal); I45.10 Unspecified right bundle-branch block | CPT/HCPCS: 93010 ==

== ENCOUNTER 2024-04-20 15:31 | Outpatient (REF) | payer MEDICARE, SELFPAY | END 2024-04-20 15:32 | disposition home or self-care (01) | LOC: HO.MAMMO 15:31 | PROVIDERS: PCP Internal Medicine; Visit Provider Internal Medicine | DX: Z12.31 Encounter for screening mammogram for malignant neoplasm of breast (principal) | CPT/HCPCS: 77063; 77067 ==

== ENCOUNTER → 2024-04-20 15:45 | Outpatient (BNV) | payer MEDICARE, SELFPAY | PROVIDERS: PCP Internal Medicine; Visit Provider Internal Medicine | DX: Z12.31 Encounter for screening mammogram for malignant neoplasm of breast (principal) | CPT/HCPCS: 77063; 77067 ==

== ENCOUNTER 2024-04-24 08:43 | Outpatient (AMB) | payer MEDICARE, SELFPAY ==
[2024-04-24 09:39] VITALS: BP 125/60; PULSE 68; O2SAT 97; BMI 29.4
--- NOTE | 2024-04-24 09:39 | MHC.PC.OV ---
Vital Signs 04/24/24 09:39 Height 5 ft 6 in Weight 182 lb BMI 29.4 BP 125/60 Blood Pressure Location Lt brachial Position Sitting Pulse 68 Pulse Source Pulse Oximeter Pulse Oximetry (%) 97 Oxygen Delivery Method Room Air Intake Visit Reasons: panic attack ER f/u Intake Note: Pt is here today for her ER f/u panic attack Allergies No Known Allergies [No Known Allergies*] Allergy (Verified 04/24/24 16:44) Medication List - Last Reconciled 04/24/24 by Moira Pate MD aspirin 81 mg PO DAILY atorvastatin (Lipitor) 40 mg PO QPM hydroxyzine HCl 25 mg PO BEDTIME metoprolol succinate ER 25 mg PO DAILY multivitamin 1 tab PO DAILY Tobacco use date assessed: 04/24/24 Fall risk assessment: No Falls in past year Last assessed Fall Risk: 04/24/24 Dental Screening Dental Screen Date: 04/24/24 Did you have a dental visit in the last 12 months?: Yes Did you have a dental problem in the last 6 months where you did not have access to dental care?: No Was dental information given to patient?: Patient has dentist HPI panic attack ER f/u HPI Details 68-year-old lady with history of severe aortic stenosis status post TAVR, dyslipidemia, obstructive sleep apnea, impaired fasting glucose, and secondary hypertension , here today for follow-up after recent ER visit 04/07/2024 for a sudden panic attack. She states that she was just watching TV when she started noticing her self doing deep breathing. She started having palpitations but denies any accompanying chest pain or lightheadedness and decide to go to the ER to get checked . She was found to have dysfunctional valve, and was afraid that it was starting to fail does prompting her ER visit. While at the ER, patient was asymptomatic , no chest pain, no shortness of breath, unremarkable x-ray of the chest, negative troponin x2, no ischemic change on the EKG. Patient hemodynamically stable , and was instructed to keep her scheduled follow-up with Dr. Sharma . She is scheduled to see him May 03 with repeat echocardiogram . Patient states that she would take hydroxyzine in the past for acute anxiety attacks but would only take half a tablet of the 25 mg tablet as it was making her very drowsy. [facility] Medical History Impaired fasting glucose Menopause syndrome Dyslipidemia Secondary hypertension Atrial flutter Nonrheumatic aortic (valve) stenosis Surgical History Hx of cardiac cath (~11/2016) H/O aortic valve replacement History of colonoscopy Family History Father COPD (chronic obstructive pulmonary disease) Smoker Mother Lung cancer CVD (cardiovascular disease) Maternal Grandmother No problems noted. Brother Bacterial endocarditis Brother No problems noted. Brother No problems noted. Sister No problems noted. Sister No problems noted. Sister No problems noted. Daughter No problems noted. Daughter No problems noted. Social History Housing: House Alcohol intake: current Alcohol intake frequency: a few times a week Alcohol type: beer Patient Tobacco Use Status: Former Tobacco user Years Smoked: started in her 20's, 10 cig. a day, quit 8 years ago e-Cigarette/Vaping Use: Never Used Advance Directives Date on File: 09/11/21 service: No Current occupational status: employed Cognitive needs: No Hearing needs: No Vision needs: Yes Questionnaire PHQ-9 Over the last 2 weeks, how often have you been bothered by any of the following problems? 1. Little interest or pleasure in doing things: not at all 2. Feeling down, depressed, or hopeless: not at all 3. Trouble falling or staying asleep, or sleeping too much: not at all 4. Feeling tired or having little energy: not at all 5. Poor appetite or overeating: not at all 6. Feeling bad about yourself - or that you are a failure or have let yourself or your family down: not at all 7. Trouble concentrating on things, such as reading the newspaper or watching television: not at all 8. Moving or speaking so slowly that other people could have noticed. Or the opposite - being so fidgety or restless that you have been moving around a lot more than usual: not at all 9. Thoughts that you would be better off or of hurting yourself in some way: not at all Total score: 0 Depression Screening Interpretation: Negative Depression Screening Done: Yes 78185 - PHQ-9 Billing: Yes Source: Developed by Drs. Aric Owens, Rene Kumar and colleagues, with an educational camron from [employer]. Thrive Questionnaire Date Thrive assessed: 04/24/24 I am a: Patient What is your living situation today?: I have a steady place to live Within the past 12 months, did the food you bought not last and you didn't have the money to get more?: Never true Within the past 12 months, did you worry whether your food would run out before you got money to buy more?: Never true Do you have trouble paying for medicines?: No Do you have trouble getting transportation to medical appointments?: No Do you have trouble paying your heating and electricity bill?: No Do you have trouble taking care of your child, family member or friend?: No Do you have trouble with day-to-day activities such as bathing, preparing meals, shopping, managing finances, etc.?: No Are you currently unemployed and looking for a job?: No Are you interested in more education?: No THRIVE Score: 0 AUDIT C Alcohol Use Questionnaire (AUDIT-C) 1. How often do you have a drink containing alcohol?: Never Total Score: 0 BE-7 AMB Questionnaire BE-7 Date BE - 7 assessed: 04/24/24 Feeling nervous, anxious, or on edge: 1 = Several days Not being able to stop or control worryin = Several days Worrying too much about different things: 1 = Several days Trouble relaxin = Not at all Being so restless that it is hard to sit still: 0 = Not at all Becoming easily annoyed or irritable: 1 = Several days Feeling afraid as if something awful might happen: 1 = Several days Total BE-7 score (0-4 normal; 5-9 mild; 10-14 moderate; 15-21 severe): 5 Source: Developed by Drs. Aric Owens, Rene Kumar and colleagues, with an educational camron from [employer]. BE-7 Assessment Billing BE-7 Assessment Tool: BE-7 Assessment 64901 Review of Systems Const All systems reviewed & are unremarkable except as noted in HPI and below Physical exam (Primary Care) Vital Signs: Last Vital Signs Pulse 68 04/24/24 09:39 BP 125/60 04/24/24 09:39 Pulse Ox 97 04/24/24 09:39 Oxygen Delivery Method Room Air 04/24/24 09:39 BMI result Body Mass Index 29.4 Tobacco/Smoking Status: Tobacco use Status Tobacco use date assessed 04/24/24 04/24/24 09:41 Patient Tobacco Use Status Former Tobacco user 04/24/24 09:41 e-Cigarette/Vaping Use Never Used 04/24/24 09:41 PHQ-9: PHQ-9 Score PHQ-9: Total score 0 04/24/24 09:45 Depression Screening Interpretation: Negative Thrive Assessment: Date of Thrive Assessment Date Thrive assessed 04/24/24 04/24/24 09:41 Const General: comfortable and no acute distress Orientation/consciousness: patient oriented x3 HENMT General nose exam: Normal external nose present Mouth: oropharynx normal and moist mucous membranes Eyes General: appearance normal, both eyes and all related structures Neck Neck: Yes full ROM, Yes no lymphadenopathy and Yes supple Resp Effort & Inspection: normal respiratory effort and able to speak in complete sentences Auscultation: clear to auscultation bilaterally Cardio Rate: regular rate Rhythm: regular rhythm Heart sounds: S1 normal heart sound present, S2 normal heart sound present and Murmur heart sound present (Soft murmur heard on left sternal border) GI Palpation (GI): Soft to palpation, nontender and no masses Auscultation: normal bowel sounds Back/Spine/Pelvis Back: No back tenderness Neuro General: patient oriented x3, gait normal, tone normal, moves all extremities, Normal light touch and pain sensation and no focal motor deficits Cognition (Neuro): normal cognition Gait exam (Neuro): Normal gait present Motor exam (neuro): 5/5 motor strength present throughout Extrem General: Yes full ROM, Yes no joint enlargement, Yes no pedal edema, Yes no calf tenderness and Yes normal gait Psych Appearance: grossly normal and well kempt Mental Status: mental status grossly normal Speech and movement: Normal speech and movement present Affect: normal affect Coding Level of Care Code Est Pt Level 4 (21638) Diagnoses 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 Sharma later this month (2) Anxiety with limited-symptom attacks: Code(s): F41.8 - Other specified anxiety disorders Plan: May take hydroxyzine 25 mg tablet half a tablet as needed for acute onset of anxiety. Discuss other behavioral techniques to help with controlling anxiety attacks avoidance of caffeine alcohol
== END 2024-04-24 10:07 | disposition home or self-care (01) ==
PROVIDERS: PCP Internal Medicine; Visit Provider Internal Medicine
DX: T82.09XA Other mechanical complication of heart valve prosthesis, initial encounter (principal); F41.8 Other specified anxiety disorders

== ENCOUNTER → 2024-04-24 08:43 | Outpatient (BNVA) | payer MEDICARE, SELFPAY | PROVIDERS: PCP Internal Medicine; Visit Provider Internal Medicine | DX: G47.33 Obstructive sleep apnea (adult) (pediatric) (principal); E78.5 Hyperlipidemia, unspecified; I15.9 Secondary hypertension, unspecified; T82.09XA Other mechanical complication of heart valve prosthesis, initial encounter; F41.8 Other specified anxiety disorders; X58.XXXA Exposure to other specified factors, initial encounter; Y93.9 Activity, unspecified; Y92.9 Unspecified place or not applicable; Y99.9 Unspecified external cause status; Z87.891 Personal history of nicotine dependence; Z99.89 Dependence on other enabling machines and devices | CPT/HCPCS: 96127; 99212 ==

== ENCOUNTER 2024-04-24 13:23 | Outpatient (AMB) | payer MEDICARE, SELFPAY ==
[2024-04-24 13:25] VITALS: BP 140/58; PULSE 87; O2SAT 97
--- NOTE | 2024-04-24 13:25 | MHC.OFFVIS ---
Vital Signs 04/24/24 13:25 Weight 184 lb 1.376 oz BP 140/58 H Blood Pressure Location Rt brachial Position Sitting Pulse 87 Pulse Source Pulse Oximeter Pulse Oximetry (%) 97 Oxygen Delivery Method Room Air Intake Visit Reasons: anna Allergies No Known Allergies [No Known Allergies*] Allergy (Verified 04/24/24 13:29) Medication List - Last Reconciled 04/24/24 by Juhi Cabral LPN aspirin 81 mg PO DAILY atorvastatin (Lipitor) 40 mg PO QPM hydroxyzine HCl 25 mg PO BEDTIME metoprolol succinate ER 25 mg PO DAILY multivitamin 1 tab PO DAILY HPI HPI anna: Details: 68-year-old, former 20 pack-year smoker, quit 10 years prior with underlying history of ANNA previously on CPAP with sleep study over 8 years ago who is interested in being re-evaluated for underlying obstructive sleep apnea. Patient does states that she sleeps on average 9-10 hours, however she does wake up feeling very poorly rested and she has significant daytime sleepiness. Patient today also complains of cough productive of yellowish sputum. After the last office visit patient has received her CPAP machine and is working on getting used to it. [facility], [facility] Medical History Impaired fasting glucose Menopause syndrome Dyslipidemia Secondary hypertension Atrial flutter Nonrheumatic aortic (valve) stenosis Surgical History Hx of cardiac cath (~11/2016) H/O aortic valve replacement History of colonoscopy Family History Father COPD (chronic obstructive pulmonary disease) Smoker Mother Lung cancer CVD (cardiovascular disease) Maternal Grandmother No problems noted. Brother Bacterial endocarditis Brother No problems noted. Brother No problems noted. Sister No problems noted. Sister No problems noted. Sister No problems noted. Daughter No problems noted. Daughter No problems noted. Social History Housing: House Alcohol intake: current Alcohol intake frequency: a few times a week Alcohol type: beer Patient Tobacco Use Status: Former Tobacco user Years Smoked: started in her 20's, 10 cig. a day, quit 8 years ago e-Cigarette/Vaping Use: Never Used Advance Directives Date on File: 09/11/21 service: No Current occupational status: employed Cognitive needs: No Hearing needs: No Vision needs: Yes Review of Systems Const Denies daytime sleepiness, Denies excessive sweating, Denies fatigue, Denies fever(s), Denies lethargy, Denies malaise, Denies night sweats, Denies snoring and Denies weight loss Eyes Denies blurry vision and Denies itchy eyes ENT Denies nasal congestion, Denies post nasal drip, Denies sinus pain, Denies sinus pressure and Denies other ( Thrush) Card Denies chest pain, Denies pedal edema, Denies dyspnea, Denies orthopnea and Denies paroxysmal nocturnal dyspnea Resp Denies cough, Denies hemoptysis, Denies excessive phlegm production, Denies dyspnea, Denies snoring and Denies wheezing GI Denies abdominal pain and Denies heartburn Musc Denies myalgias, Denies arthralgias and Denies joint swelling Skin/Breast Denies rash Neuro Denies memory loss and Denies seizure-like activity Psych Denies abnormal sleep pattern, Denies anxiety and Denies memory loss Endo Denies excessive sweating, Denies fatigue and Denies heat intolerance Manuel/Lymph Denies easy bruising Aller/Immun Denies itchy eyes, Denies seasonal rhinorrhea and Denies wheezing Physical Exam Vital Signs: Last Vital Signs Pulse 87 04/24/24 13:25 BP 140/58 H 04/24/24 13:25 Pulse Ox 97 04/24/24 13:25 Oxygen Delivery Method Room Air 04/24/24 13:25 Const General: no acute distress and alert Nutritional Appearance: not obese Orientation/consciousness: Other orientation findings ( oriented) HEENT Head: Yes atraumatic Eyes General: appearance normal, both eyes and all related structures Sclerae: sclerae normal EOM: EOMs intact bilaterally Neck Neck: Yes supple Lymphatic: no lymphadenopathy noted Resp Effort & Inspection: normal respiratory effort and no use of accessory muscles Auscultation: clear to auscultation bilaterally Cardio Rate: regular rate Rhythm: regular rhythm Heart sounds: no gallops, Murmur heart sound present (3/6) and no rubs Skin General skin exam: other ( warm) Extrem General: No clubbing, No cyanosis and No edema Assessment & Plan Assessment & Plan (1) ANNA (obstructive sleep apnea): Code(s): G47.33 - Obstructive sleep apnea (adult) (pediatric) Category: Medical Plan: Underlying moderate obstructive sleep apnea. Patient started on APAP therapy and is getting used to it. Continue APAP therapy. Coding Level of Care Code Est Pt Level 3 (12888) Diagnoses ANNA (obstructive sleep apnea) G47.33
== END 2024-04-24 13:41 | disposition home or self-care (01) ==
PROVIDERS: PCP Internal Medicine; Visit Provider Internal Medicine Pulmonary Disease
DX: G47.33 Obstructive sleep apnea (adult) (pediatric) (principal)
CPT/HCPCS: 99213

== ENCOUNTER → 2024-05-03 10:03 | Outpatient (REF) | payer MEDICARE, SELFPAY ==
--- NOTE | 2024-05-03 10:05 | CA_ITS ---
Transthoracic Echocardiogram Patient (Last, First, Middle): Carly Cox F Gender: Female Date of : 1955 Age: 68 Procedure Date: 05/03/2024 Procedure Type: Transthoracic Echocardiogram Location: OP Height: 167.64 cm Weight: 81.65 kg BSA: 1.91 m2 Heart Rate: bpm BP: 126 / 70 mmHg Comparison Shopper: Referring MD: Omar Sharma MD Symptoms: T82.09XA - Other mechanical complication of heart valve prosthesis, init... Study Quality: Adequate ECG Rhythm: Sinus Conclusions: - 1. Normal LV ejection fraction of 60 65% with mild LVH with impaired relaxation filling pattern 2. Mildly dilated left atrium 3. Abnormal functioning of bioprosthetic aortic valve with mean gradient of 17 mm Hg with [id number] aortic regurgitation 4. Normal RV systolic pressure 5. No gross pericardial effusion Findings Left Ventricle Normal left ventricular size and systolic function. There is mildly increased left ventricular wall thickness. The visually estimated ejection fraction is between 60-65%. Spectral Doppler is indicative of an impaired relaxation filling pattern. E/E prime ratio is between 8 and 15 consistent with indeterminate filling pressures. Right Ventricle Normal right ventricular cavity size and systolic function. Atria The left atrium is mildly dilated. There is no evidence of interatrial shunt. The right atrium is normal in size. Aortic Valve A bioprosthetic aortic valve is present. The prosthetic aortic valve appears to be functioning abnormally. Echo findings are consistent with stenosis of the aortic valve prosthesis. There is mild to moderate aortic valve regurgitation. Mitral Valve Normal mitral valve structure and function. There is mild mitral valve regurgitation. There is no mitral valve stenosis. Pulmonic Valve The pulmonic valve is likely normal. There is trace pulmonic valve regurgitation. Tricuspid Valve Normal tricuspid valve structure. There is trace tricuspid valve regurgitation. The right ventricular systolic pressure is normal. The right ventricular systolic pressure is 22 mmHg. Normal right atrial pressure. There is no evidence of pulmonary hypertension. Great Vessels All visible segments of the aorta are normal in size. The pulmonary artery was not well visualized. There is no dilatation of the ascending aorta measuring 3.40 cm. Venous The inferior vena cava is normal in size and collapses greater than 50% with inspiration. Pericardium/Pleural There is no evidence of pericardial effusion. Prior Study Comparison No significant change compared to prior study dated: 10/19/2023. Measurements 2D Linear Measurements IVSd: 1.23 0.6-0.9/0.6-1.0 cm LVIDd: 5.06 3.9-5.3/4.2-5.9 cm LVIDd Index: 2.65 2.4-3.2/2.2-3.1 cm/m2 LVIDs: 3.13 2.0-3.6 cm LVPWd: 1.27 0.7-1.1 cm Ao Root: 3.00 2.1-3.5 cm LA Diam: 4.50 2.7-3.8/3.0-4.0 cm LAIDs Index: 2.36 1.5-2.3 cm/m2 LV Mass: 314.63 67-162/88-224 g LV Mass Index: 164.73 43-95/49-115 g/m2 LVOT Diam: 2.00 3.0+(-)1.3 cm Mitral Valve MV Pk E: 0.67 MV PK A: 0.92 MV Decel Time: 164.00 E/A: 0.70 E'Lateral: 5.66 E'Medial: 6.09 E/E' Med: 11.00 E/E' Lat: 11.80 PHT: 48.00 MVA PHT: 4.58 Decel [place]: 4.08 Aortic Valve AoV Pk Mike: 2.79 AoV Mn Mike: 1.94 AoV VTI: 0.65 AoV Pk Grad: 31.00 Aov Mn Grad: 17.00 MARISOL Cont.VTI: 1.55 LVOT LVOT Pk Mike: 1.31 LVOT Mn Mike: 0.89 LVOT VTI: 0.32 LVOT Pk Grad: 7.00 LVOT Mn Grad: 4.00 LVOT Diam: 2.00 LVOT Area: 3.14 Diastolic Function MV Pk E: 0.67 MV Pk A: 0.92 E/A: 0.70 E'Medial: 6.09 E/E' Med: 11.00 E' Laterial: 5.66 E/E' Lat: 11.80 Right Ventricle TAPSE (mm): 20.00 Tricuspid Valve TR Pk Mike: 2.17 TR Pk Grad: 19.00 RA Press: 3.00 RVSP: 22.00 Great Vessels Aorta Ao Root-2D: 3.00 2.0-3.7 cm Ao Asc: 3.40 2.1-3.4 cm Pulmonary Valve PV Pk Mike: 0.92 Peak PV Grad: 3.00 Updated in Other Vendor System with Status of Final Omar Sharma MD electronically signed on 05/03/2024 2:09:12 PM with status of Final
== END ==
LOC: HO.CARD 10:03
PROVIDERS: PCP Internal Medicine; Visit Provider Internal Medicine Cardiovascular Disease
DX: T82.09XA Other mechanical complication of heart valve prosthesis, initial encounter (principal)
CPT/HCPCS: 93306

== ENCOUNTER → 2024-05-03 10:05 | Outpatient (BNV) | payer MEDICARE, SELFPAY | PROVIDERS: PCP Internal Medicine; Visit Provider Internal Medicine Cardiovascular Disease | DX: T82.857A Stenosis of other cardiac prosthetic devices, implants and grafts, initial encounter (principal); I34.0 Nonrheumatic mitral (valve) insufficiency | CPT/HCPCS: 93306 ==

== ENCOUNTER 2024-05-09 12:31 | Outpatient (AMB) | payer MEDICARE, SELFPAY ==
--- NOTE | 2024-05-09 12:35 | MHC.OFFVIS ---
Vital Signs 05/09/24 12:36 Height 5 ft 6 in Weight 185 lb 3.013 oz BMI 29.9 BP 134/82 Blood Pressure Location Lt brachial Position Sitting Pulse 84 Intake Visit Reasons: 6 mth s/p echo/ sleep ref Intake Note: 6 month follow-up after echo and sleep medicine feeling ok was in the ed in Dec [employer] Required: No Snorkelling Instructor: Snorkelling Instructor Present Accompanied by: Daughter Allergies No Known Allergies [No Known Allergies*] Allergy (Verified 04/24/24 16:44) Medication List - Last Reconciled 05/09/24 by Omar Sharma MD aspirin 81 mg PO DAILY atorvastatin (Lipitor) 40 mg PO QPM hydroxyzine HCl 25 mg PO BEDTIME metoprolol succinate ER 25 mg PO DAILY multivitamin 1 tab PO DAILY HPI Comments Details: Carly comes for follow-up after recent echocardiogram. This shows stable prosthetic valve dysfunction with [id number] aortic stenosis and kifi-zp-qvinpkny aortic regurgitation she says since last April she has been having symptoms of exertional chest heaviness/pressure when she rushes to do something. The symptoms happen while she was trying to walk and a higher speed while in [place]. The symptoms recurred again on Marta while she was walking in [place] in cold weather. Symptoms resolved with resting. She does not get any crescendo symptoms. No symptoms at rest. She comes for further evaluation. She has been taking all her medications. She is trying to get adjusted to her CPAP machine. Blood pressures been better controlled. [facility] Medical History Impaired fasting glucose Menopause syndrome Dyslipidemia Secondary hypertension Atrial flutter Nonrheumatic aortic (valve) stenosis Surgical History Hx of cardiac cath (~11/2016) H/O aortic valve replacement History of colonoscopy Family History Father COPD (chronic obstructive pulmonary disease) Smoker Mother Lung cancer CVD (cardiovascular disease) Maternal Grandmother No problems noted. Brother Bacterial endocarditis Brother No problems noted. Brother No problems noted. Sister No problems noted. Sister No problems noted. Sister No problems noted. Daughter No problems noted. Daughter No problems noted. Social History Housing: House Alcohol intake: current Alcohol intake frequency: a few times a week Alcohol type: beer Patient Tobacco Use Status: Former Tobacco user Years Smoked: started in her 20's, 10 cig. a day, quit 8 years ago e-Cigarette/Vaping Use: Never Used Advance Directives Date on File: 09/11/21 service: No Current occupational status: employed Cognitive needs: No Hearing needs: No Vision needs: Yes Review of Systems Const Denies chills, Denies fatigue, Denies fever(s), Denies frequent falls, Denies weakness, Denies weight gain and Denies weight loss ENT Denies dizziness Card Denies chest pain, Denies leg edema, Denies lightheadedness, Denies palpitations, Denies dyspnea, Denies dyspnea on exertion, Denies orthopnea and Denies other (loss of consciousness) Resp Denies cough, Denies dyspnea and Denies dyspnea on exertion GI Denies hematochezia and Denies change in stool character Musc Denies abnormal gait, Denies muscle weakness, Denies numbness, Denies radiating pain into limb and Denies tingling Neuro Denies abnormal gait, Denies dizziness, Denies frequent falls, Denies numbness, Denies tingling and Denies weakness Endo Denies fatigue and Denies palpitations Physical Exam Vital Signs: Last Vital Signs Pulse 84 05/09/24 12:36 BP 134/82 05/09/24 12:36 BMI result Body Mass Index 29.9 Const General: no acute distress and alert Nutritional Appearance: not obese Orientation/consciousness: Other orientation findings ( oriented) HEENT Head: Yes atraumatic Eyes General: appearance normal, both eyes and all related structures Sclerae: sclerae normal EOM: EOMs intact bilaterally Neck Neck: Yes supple Lymphatic: no lymphadenopathy noted Resp Effort & Inspection: normal respiratory effort and no use of accessory muscles Auscultation: clear to auscultation bilaterally Cardio Rate: regular rate Rhythm: regular rhythm Heart sounds: no gallops, Murmur heart sound present (3/6) systolic and no rubs Skin General skin exam: other ( warm) Extrem General: No clubbing, No cyanosis and No edema Assessment & Plan Assessment & Plan (1) Exertional chest pain: Code(s): R07.9 - Chest pain, unspecified Category: Medical Plan: Exertional chest pain this elderly woman which is concerning for possible development of coronary artery disease although less likely. Question underestimating prosthetic valve dysfunction. However she will need a exercise treadmill stress test with imaging to evaluate for myocardial ischemia 1st. Will also evaluate for exercise capacity as well as EKG changes. If she has significant EKG changes, will pursue invasive hemodynamic as well as cardiac angiographic procedure. This was discussed with her. She is advised to avoid sudden strenuous exertion. Continue metoprolol and aspirin therapy. 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 Unsure for exertional symptoms related to this, less likely given the valve abnormalities not significant. Will continue monitor clinically. Exercise treadmill stress test as above. Continue low-dose aspirin therapy. Continue high-intensity statin therapy with target goal LDL less than 70 mg/dL. Blood pressure is currently well optimized. SBE prophylaxis as per ACC/aha guidelines. Will follow up in the clinic in 6 months time, sooner p.r.n.. Thank you for allowing me to partake in her care Orders: Orders CA stress test Today R07.9 - Chest pain, unspecified NM cardiolite stress test 2 Weeks R07.9 - Chest pain, unspecified Coding Level of Care Code Est Pt Level 4 (90330) Complex EM visit Add On G2211 Diagnoses Exertional chest pain R07.9 Prosthetic valve dysfunction T82.09XA
[2024-05-09 12:36] VITALS: BP 134/82; PULSE 84; BMI 29.9
== END 2024-05-09 13:00 | disposition home or self-care (01) ==
PROVIDERS: PCP Internal Medicine; Visit Provider Internal Medicine Cardiovascular Disease
DX: R07.9 Chest pain, unspecified (principal); T82.09XA Other mechanical complication of heart valve prosthesis, initial encounter
CPT/HCPCS: 99214; G2211

== ENCOUNTER → 2024-05-09 12:31 | Outpatient (BNVA) | payer MEDICARE, SELFPAY | PROVIDERS: PCP Internal Medicine; Visit Provider Internal Medicine Cardiovascular Disease | DX: R07.9 Chest pain, unspecified (principal); T82.09XA Other mechanical complication of heart valve prosthesis, initial encounter; Z87.891 Personal history of nicotine dependence; Z99.89 Dependence on other enabling machines and devices | CPT/HCPCS: 99212 ==

== ENCOUNTER → 2024-05-12 08:20 | Outpatient (REF) | payer MEDICARE, SELFPAY ==
--- NOTE | ~2024-05-12 | NM_ITS ---
EXERCISE MYOCARDIAL PERFUSION STUDY INDICATION: Chest pain to evaluate for myocardial ischemia TECHNIQUE: The patient was brought in for an exercise perfusion study on 05/12/2024. Patient performed exercise as per Enmanuel protocol and was injected 25 mCi of sestamibi once target heart rate was achieved. Images were obtained using the SPECT gamma camera interlaced with the gating device. Images were obtained in supine position. Resting perfusion study was performed on 05/15/2024. Patient was administered 25 mCi of sestamibi intravenously at rest. Images were then obtained in supine position. Images were processed with the software and compared side to side in short axis, horizontal long axis and vertical long axis views. FINDINGS: Raw images were reviewed The stress perfusion study showed nonattenuated images show mildly to moderately reduced uptake in the distal portion of the nodule. Remainder of the chest. Attenuated corrected images show normal uptake of the. The gated study shows normal LV systolic function with visually estimated LVEF of greater than 55%. LV cavity is normal in size. The gated study shows [ wall thickening and contraction of segments. Resting study shows nonattenuated images show mildly reduced uptake in the basal and mid anterior wall as well as moderately reduced uptake in the distal anterior wall. Attenuated corrected images show normal uptake of contrast within the myocardiumating at rest reveals normal systolic wall motion with ejection fraction at greater than 55%. The findings are consistent with [likely normal myocardial perfusion. NM/NM cardiolite stress test IMPRESSION: 1. Myocardial perfusion imaging study shows likely normal myocardial perfusion. 2. Gated LVEF is greater than 55%. 3. Transient ischemic dilatation not present. EKG revealed negative for ischemia. Electronically signed by: Omar Sharma MD 05/15/2024 03:40 PM [facility]
--- NOTE | 2024-05-12 08:22 | CA_ITS ---
Acquisition Time: 2024-05-12 08:31:14 Total Exercise Time: 00:05:40 Test Indications: CP, SOB Medications: SEE H&P Protocol: ENMANUEL Max HR: 157 BPM 103% of Pred: 151 BPM Max BP: 240/40 mmHG Max Work Load: 7.0 METS Exercise Stress Test with exercise 5 mins 40 secs of Enmanuel Protocol, achieving 92% MPHR, with reports of SOB and 3/10 mid chest tightness that resolved quickly in recovery, with isolated PVC, with baseline BP 158/50 that rachele to 240/40 with exercise. Without EKG changes meeting criteria for ischemia. In recovery, BP returned to 144/54. Nuclear images pending. Test reviewed with Dr. sharma. Referred By: Omar Sharma Electronically Signed By: Anthony Roman
== END ==
LOC: HO.CARD 08:20
PROVIDERS: PCP Internal Medicine; Visit Provider Internal Medicine Cardiovascular Disease
DX: R07.9 Chest pain, unspecified (principal)
CPT/HCPCS: 78452; 93017; A9500

== ENCOUNTER → 2024-05-12 08:22 | Outpatient (BNV) | payer MEDICARE, SELFPAY | PROVIDERS: PCP Internal Medicine | DX: R06.02 Shortness of breath (principal); R07.9 Chest pain, unspecified; I49.3 Ventricular premature depolarization | CPT/HCPCS: 78452; 93016; 93018 ==

== ENCOUNTER 2024-09-13 09:44 | Outpatient (REF) | payer MEDICARE, SELFPAY ==
--- NOTE | ~2024-09-13 | MM_ITS ---
EXAMINATION: DXA BONE DENSITY AXIAL HISTORY: Z78.0 - Asymptomatic menopausal state TECHNIQUE: [employer]Nub Dual energy absorptiometry (DEXA) of the lumbar spine, total left hip, and femoral neck was performed. COMPARISON: Comparison is made with the prior examination dated 04/01/2020. FINDINGS: The bone mineral density of the lumbar spine is 1.331, corresponding to a T-score of 1.3, and a Z-score of 2.4. This is indicative of normal bone mineral density. This represents a BMD change of 7.8% compared to the prior exam. This is statistically significant. The bone mineral density of the left total hip is 1.047, corresponding to a T-score of 0.3, and a Z-score of 1.4. This is indicative of normal bone mineral density. This represents a BMD change of 1.8% compared to the prior exam. This is not statistically significant. The bone mineral density of the left femoral neck is 0.966, corresponding to a T-score of -0.5, and a Z-score of 0.8. This is indicative of normal bone mineral density. This represents a BMD change of 2.2% compared to the prior exam. MM/XR DEXA axial skeleton IMPRESSION: Based on bone mineral density, and according to World Health Organization (WHO) criteria, the diagnosis is consistent with normal bone mineral density. All bone density values are in grams per centimeter squared (g/cm2). Statistically, 68% of repeat scans fall within 1 SD (+/- 0.010 g/cm2 for AP spine L1-L4) and 1 SD (+/- 0.012 g/cm2 for femur total) FRAX is a trademark of the [employer] [place] [facility] [employer], a World Health Organization (WHO) Collaborating Center. Electronically signed by: Aric Ram MD 09/13/2024 10:58 AM EDT
== END 2024-09-13 09:45 | disposition home or self-care (01) ==
LOC: HO.MAMMO 09:44
PROVIDERS: PCP Internal Medicine; Visit Provider Internal Medicine
DX: Z78.0 Asymptomatic menopausal state (principal)
CPT/HCPCS: 77080

== ENCOUNTER → 2024-09-13 10:00 | Outpatient (BNV) | payer MEDICARE, SELFPAY | PROVIDERS: PCP Internal Medicine; Visit Provider Radiology Diagnostic Radiology | DX: E28.39 Other primary ovarian failure (principal) | CPT/HCPCS: 77080 ==

== ENCOUNTER 2024-09-25 13:45 | Outpatient (AMB) | payer MEDICARE, SELFPAY ==
[2024-09-25 14:02] VITALS: BP 142/62; PULSE 87; O2SAT 93; BMI 29.9
--- NOTE | 2024-09-25 14:02 | MHC.OFFVIS ---
Vital Signs 09/25/24 14:02 Height 5 ft 6 in Weight 185 lb BMI 29.9 BP 142/62 H Blood Pressure Location Rt brachial Position Sitting Pulse 87 Pulse Source Pulse Oximeter Pulse Oximetry (%) 93 Oxygen Delivery Method Room Air Intake Visit Reasons: Obstructive sleep apnea Allergies No Known Allergies [No Known Allergies*] Allergy (Verified 09/25/24 14:10) HPI HPI Obstructive sleep apnea: Details: 68-year-old, former 20 pack-year smoker, 2013, followed for moderate ANNA on CPAP therapy. Patient has been trying to get used to CPAP mask, and she still has difficulties duo unit, however her symptoms are well controlled when she is able to utilize it. Today she is also complain of a chronic cough productive of yellowish sputum. [facility] Medical History Impaired fasting glucose Menopause syndrome Dyslipidemia Secondary hypertension Atrial flutter Nonrheumatic aortic (valve) stenosis Surgical History Hx of cardiac cath (~11/2016) H/O aortic valve replacement History of colonoscopy Family History Father COPD (chronic obstructive pulmonary disease) Smoker Mother Lung cancer CVD (cardiovascular disease) Maternal Grandmother No problems noted. Brother Bacterial endocarditis Brother No problems noted. Brother No problems noted. Sister No problems noted. Sister No problems noted. Sister No problems noted. Daughter No problems noted. Daughter No problems noted. Social History Housing: House Alcohol intake: current Alcohol intake frequency: a few times a week Alcohol type: beer Patient Tobacco Use Status: Former Tobacco user Years Smoked: started in her 20's, 10 cig. a day, quit 8 years ago e-Cigarette/Vaping Use: Never Used Advance Directives Date on File: 09/11/21 service: No Current occupational status: employed Cognitive needs: No Hearing needs: No Vision needs: Yes Review of Systems Const Denies daytime sleepiness, Denies excessive sweating, Denies fatigue, Denies fever(s), Denies lethargy, Denies malaise, Denies night sweats, Denies snoring and Denies weight loss Eyes Denies blurry vision and Denies itchy eyes ENT Denies nasal congestion, Denies post nasal drip, Denies sinus pain, Denies sinus pressure and Denies other ( Thrush) Card Denies chest pain, Denies pedal edema, Denies dyspnea, Denies orthopnea and Denies paroxysmal nocturnal dyspnea Resp Reports cough, Denies hemoptysis, Reports excessive phlegm production, Denies dyspnea, Denies snoring and Denies wheezing GI Denies abdominal pain and Denies heartburn Musc Denies myalgias, Denies arthralgias and Denies joint swelling Skin/Breast Denies rash Neuro Denies memory loss and Denies seizure-like activity Psych Denies abnormal sleep pattern, Denies anxiety and Denies memory loss Endo Denies excessive sweating, Denies fatigue and Denies heat intolerance Manuel/Lymph Denies easy bruising Aller/Immun Denies itchy eyes, Denies seasonal rhinorrhea and Denies wheezing Physical Exam Vital Signs: Last Vital Signs Pulse 87 09/25/24 14:02 BP 142/62 H 09/25/24 14:02 Pulse Ox 93 09/25/24 14:02 Oxygen Delivery Method Room Air 09/25/24 14:02 BMI result Body Mass Index 29.9 Const General: no acute distress and alert Nutritional Appearance: not obese Orientation/consciousness: Other orientation findings ( oriented) HEENT Head: Yes atraumatic Eyes General: appearance normal, both eyes and all related structures Sclerae: sclerae normal EOM: EOMs intact bilaterally Neck Neck: Yes supple Lymphatic: no lymphadenopathy noted Resp Effort & Inspection: normal respiratory effort and no use of accessory muscles Auscultation: clear to auscultation bilaterally Cardio Rate: regular rate Rhythm: regular rhythm Heart sounds: no gallops, no murmurs and no rubs Skin General skin exam: other ( warm) Extrem General: No clubbing, No cyanosis and No edema Assessment & Plan Assessment & Plan (1) ANNA (obstructive sleep apnea): Code(s): G47.33 - Obstructive sleep apnea (adult) (pediatric) Category: Medical Plan: Patient continues to work trying to adapt to using CPAP machine. Her symptoms are well controlled when she is able to use it. Continue current CPAP therapy. (2) Chronic cough: Code(s): R05.3 - Chronic cough Category: Medical Plan: Previously with no response to empiric azithromycin. Will obtain sputum culture. Orders: Orders Sputum Cult + Gram stain Today R05.3 - Chronic cough Coding Level of Care Code Est Pt Level 4 (58240) Diagnoses ANNA (obstructive sleep apnea) G47.33 Chronic cough R05.3
== END 2024-09-25 14:22 | disposition home or self-care (01) ==
LOC: HO.HPS 13:47
PROVIDERS: PCP Internal Medicine; Visit Provider Internal Medicine Pulmonary Disease
DX: G47.33 Obstructive sleep apnea (adult) (pediatric) (principal); R05.3 Chronic cough
CPT/HCPCS: 99214

== ENCOUNTER → 2024-09-25 13:45 | Outpatient (BNVA) | payer MEDICARE, SELFPAY | PROVIDERS: PCP Internal Medicine; Visit Provider Internal Medicine Pulmonary Disease | DX: G47.33 Obstructive sleep apnea (adult) (pediatric) (principal); R05.3 Chronic cough | CPT/HCPCS: 99212 ==

== ENCOUNTER 2024-09-28 16:20 | Outpatient (REF) | payer MEDICARE, SELFPAY | END 2024-09-28 16:21 | disposition home or self-care (01) | LOC: HO.LNP 16:20 | PROVIDERS: Visit Provider Internal Medicine Pulmonary Disease | DX: R05.3 Chronic cough (principal) | CPT/HCPCS: 87070; 87077; 87185; 87205 ==

== ENCOUNTER 2024-10-30 12:28 | Outpatient (AMB) | payer MEDICARE, SELFPAY ==
[2024-10-30 12:46] VITALS: BP 110/62; PULSE 86; BMI 29.5
--- NOTE | 2024-10-30 12:46 | A.OFFVIS_ITS ---
Vital Signs 10/30/24 12:46 Height 5 ft 6 in Weight 182 lb 15.739 oz BMI 29.5 BP 110/62 Blood Pressure Location Lt brachial Position Sitting Pulse 86 Intake Visit Reasons: 6m follow up Intake Note: 6 month follow-up feeling ok but sometimes gets some pressure in center of chest at times Balance Bridge Assembler Required: No Allergies No Known Allergies (No Known Allergies*) Allergy (Verified 09/25/24 14:10) Medication List - Last Reconciled 10/30/24 by Omar Sharma MD aspirin 81 mg PO DAILY atorvastatin (Lipitor) 40 mg PO QPM hydroxyzine HCl 25 mg PO BEDTIME metoprolol succinate ER 25 mg PO DAILY multivitamin 1 tab PO DAILY HPI Comments Details: Heena comes for follow-up. She continues to do well except for when she is over exerting herself and rushing she gets retrosternal chest pressure. She denies any worsening shortness of breath. No orthopnea, PND. No prolonged palpitations, lightheadedness, syncope. Takes all her medications. [facility] Medical History Impaired fasting glucose Menopause syndrome Dyslipidemia Secondary hypertension Atrial flutter Nonrheumatic aortic (valve) stenosis Surgical History Hx of cardiac cath (~11/2016) H/O aortic valve replacement History of colonoscopy Family History Father COPD (chronic obstructive pulmonary disease) Smoker Mother Lung cancer CVD (cardiovascular disease) Maternal Grandmother No problems noted. Brother Bacterial endocarditis Brother No problems noted. Brother No problems noted. Sister No problems noted. Sister No problems noted. Sister No problems noted. Daughter No problems noted. Daughter No problems noted. Social History Housing: House Alcohol intake: current Alcohol intake frequency: a few times a week Alcohol type: beer Patient Tobacco Use Status: Former Tobacco user Years Smoked: started in her 20's, 10 cig. a day, quit 8 years ago e-Cigarette/Vaping Use: Never Used Advance Directives Date on File: 05/26/22 service: No Current occupational status: employed Cognitive needs: No Hearing needs: No Vision needs: Yes Review of Systems Const Denies chills, Denies fatigue, Denies fever(s), Denies frequent falls, Denies weakness, Denies weight gain and Denies weight loss ENT Denies dizziness Card Denies chest pain, Denies leg edema, Denies lightheadedness, Denies palpitations, Denies dyspnea, Denies dyspnea on exertion, Denies orthopnea and Denies other (loss of consciousness) Resp Denies cough, Denies dyspnea and Denies dyspnea on exertion GI Denies hematochezia and Denies change in stool character Musc Denies abnormal gait, Denies muscle weakness, Denies numbness, Denies radiating pain into limb and Denies tingling Neuro Denies abnormal gait, Denies dizziness, Denies frequent falls, Denies numbness, Denies tingling and Denies weakness Endo Denies fatigue and Denies palpitations Physical Exam Vital Signs: Last Vital Signs Pulse 86 10/30/24 12:46 BP 110/62 10/30/24 12:46 BMI result Body Mass Index 29.5 Const General: no acute distress and alert Nutritional Appearance: not obese Orientation/consciousness: Other orientation findings ( oriented) HEENT Head: Yes atraumatic Eyes Sclerae: sclerae normal EOM: EOMs intact bilaterally Neck Neck: Yes supple Lymphatic: no lymphadenopathy noted Resp Effort & Inspection: normal respiratory effort and no use of accessory muscles Auscultation: clear to auscultation bilaterally Cardio Rate: regular rate Rhythm: regular rhythm Heart sounds: no gallops, Murmur heart sound present (3/6) diastolic mid and at the left sternal border and systolic and no rubs Skin General skin exam: other ( warm) Extrem General: No clubbing, No cyanosis and No edema Assessment & Plan Assessment & Plan (1) Prosthetic valve dysfunction: Code(s): T82.09XA - Other mechanical complication of heart valve prosthesis, initial encounter Category: Medical Plan: Prosthetic valve dysfunction in this elderly woman who is otherwise in good functional status with no symptoms with her day-to-day activity and no significant worsening on last echocardiogram. Her clinical exam is also unchanged. She does have exertional symptoms at significant exertional levels. Advised to call me with worsening symptoms. At this point time will monitor echocardiogram in 6 months time. She is advised if the sudden change in his symptoms and if she has sudden worsening of shortness of breath she should come to the emergency room right away. Continue aggressive management of blood pr essure. Continue low-dose aspirin therapy. SBE prophylaxis as per ACC/aha guidelines. Continue statin therapy. Follow up in the clinic in 6 months time, sooner p.r.n.. Thank you for allowing me to partake in her care Orders: Orders CA echo transthoracic complete 6 Months T82.09XA - Other mechanical complication of heart valve prosthesis, initial encounter Coding Level of Care Code Est Pt Level 4 (29037) Complex EM visit Add On G2211 Diagnoses Prosthetic valve dysfunction T82.09XA
--- OUTSIDE RECORDS SUMMARY | 2024-10-30 13:26 | XMS_ITS | Patient Health Record ---
Author Organization [facility] Address [address] [place] [id number] Care Team Providers Care Panel Machine Setter Name Role Phone Herlinda PENNY, Moira Primary Care Provider Aric Sandoval Unavailable [phone] Reason For Referral No Information Medications Medication SIG (Take, Route, Frequency, Duration) Notes Start Date End Date Status Multi Complete - Orally Act [place] ALPRAZolam 0.5 MG (Schedule IV Drug) TAKE 1 TABLET BY MOUTH TWICE A DAY NEEDED Oral for 15 Not daily Active Metoprolol Succinate ER 25 MG TAKE 1 TABLET BY MOUTH EVERY DAY Oral for 90 Active PARoxetine HCl ER 12.5 MG TAKE 1 TABLET BY MOUTH EVERY DAY IN THE MORNING Oral for 30 Weaning off Active Aspirin Adult Low Dose 81 MG 1 tablet Orally Once a day Active Atorvastatin Calcium 10 MG TAKE 1 TABLET BY MOUTH ONCE A DAY Oral for 90 Active Social History Tobacco Use: Social History Observation Description Date Details (start date - stop date) Former Smoker NA - NA Tobacco Use/Smoking Question Answer Notes Patient is a former smoker How long has it been since you last smoked? 1-5 years Alcohol Screen Question Answer Notes Did you have a drink contain ing alcohol in the past year? Yes How often did you have a dri nk containing alcohol in the past year? 2 to 4 times a month (2 points) How many drinks did you have on a typical day when you were drinking in the past year? 1 or 2 drinks (0 point) How often did you have 6 or more drinks on one occasion in the past year? Never (0 point) Points 2 Interpretation Negative Section Notes: Nonsmoker since 2014; occasi nal alcohol Problems Problem Type SNOMED Code ICD Code Onset Dates Problem Status W/U Status Risk Notes Problem [id number] Encounter for screening for malignant neoplasm of colon (Z12.11) Active confirmed Problem 437988366 Preprocedural examination (Z01.818) Active confirmed Problem 932231622 Aspirin long-ter m use (Z79.82) Active confirmed Plan Of Treatment Future Test Test Name Order Date COLONOSCOPY 04/15/2017 Insurance Providers Payer Name Payer Address Payer Phone Subscriber Number Group Number Insured Name Patient Relationship to Insured Coverage Start Date Coverage End Date [employer] [address] [place] [address] [id number] KAYLAN COYNE Self - patient is the insured MEDICAID OF [employer] [address] [place] [address] [id number] KAYLAN COYNE Self - patient is the insured Medical (General) History Medical History History ICD Code Bovine aortic valve replacement 01/2016 at [facility]--? Aortic stenosis Denies AL,DM,CVA,Lung disease,renal dise ase Hyperlipidemia Sleep apnea--but not using the CPAP regu larly Screening colonoscopy in Nov with removal of hyperplastic polyps--also noted to have internal and external hemorrhoids Surgical History Surgery Date(Month/Year) Aortic valve replacement--Bovine Tendonitis right surgery-right wrist
== END 2024-10-30 13:17 | disposition home or self-care (01) ==
PROVIDERS: PCP Internal Medicine; Visit Provider Internal Medicine Cardiovascular Disease
DX: T82.09XA Other mechanical complication of heart valve prosthesis, initial encounter (principal)
CPT/HCPCS: 99214; G2211

== ENCOUNTER → 2024-10-30 12:28 | Outpatient (BNVA) | payer MEDICARE, SELFPAY | PROVIDERS: PCP Internal Medicine; Visit Provider Internal Medicine Cardiovascular Disease | DX: T82.09XD Other mechanical complication of heart valve prosthesis, subsequent encounter (principal) | CPT/HCPCS: 99212 ==

== ENCOUNTER 2024-11-01 09:43 | Outpatient (REF) | payer MEDICARE, SELFPAY ==
--- OUTSIDE RECORDS SUMMARY | 2024-11-01 10:19 | XMS_ITS | Patient Health Record ---
Author Organization [facility] Address [address] [place] [id number] Care Team Providers Care Drilling Contractor Name Role Phone Herlinda PENNY, Moira Primary Care Provider Aric Sandoval Unavailable [phone] Reason For Referral No Information Medications Medication [...] Problem Status W/U Status Risk Notes Problem [id number] Encounter for screening for malignant neoplasm of colon (Z12.11) Active confirmed Problem 392743227 Preprocedural examination (Z01.818) Active confirmed Problem 027314481 Aspirin long-ter m use (Z79.82) Active confirmed Plan Of Treatment Future Test Test Name Order Date COLONOSCOPY 04/15/2017 Insurance Providers Payer Name Payer Address Payer Phone Subscriber Number Group Number Insured Name Patient Relationship to Insured Coverage Start Date Coverage End Date [employer] [address] [place] [address] [id number] KAYLAN COYNE Self - patient is the insured MEDICAID OF [employer] [address] [place] [address] [id number] KAYLAN COYNE Self - patient is the insured Medical (General) History Medical History History ICD Code Bovine aortic valve replacement 01/2016 at [facility]--? Aortic stenosis Denies AL,DM,CVA,Lung disease,renal dise ase Hyperlipidemia Sleep apnea--but not using the CPAP regu larly Screening colonoscopy in Nov with removal of hyperplastic polyps--also noted to have internal and external hemorrhoids Surgical History Surgery Date(Month/Year) Aortic valve replacement--Bovine Tendonitis right surgery-right wrist
[2024-11-01 14:01] LABS: Alanine Aminotransferase 43 U/L (0-31); Anion Gap 11 (12-20); Aspartate Amino Transferase 32 U/L (5-31); Blood Urea Nitrogen 17 mg/dL (9-16); Calcium 9.5 mg/dL (8.4-10.2); Carbon Dioxide 29 mmol/L (22-29); Chloride 107 mmol/L (96-108); Cholesterol 182 mg/dL (<200); Estimated Glomerular Filt Rate > 60; HDL Cholesterol 64 mg/dL (>40); Potassium 4.6 mmol/L (3.3-5.1); Sodium 142 mmol/L (135-145); Triglycerides 88 mg/dL (<150)
== END 2024-11-01 09:44 | disposition home or self-care (01) ==
LOC: HO.HMGCLDS 09:43
PROVIDERS: Internal Medicine; PCP Internal Medicine; Visit Provider Internal Medicine
DX: Z00.01 Encounter for general adult medical examination with abnormal findings (principal); I15.9 Secondary hypertension, unspecified; E78.5 Hyperlipidemia, unspecified; N95.1 Menopausal and female climacteric states; R73.01 Impaired fasting glucose; T82.09XA Other mechanical complication of heart valve prosthesis, initial encounter; G47.33 Obstructive sleep apnea (adult) (pediatric); Z95.2 Presence of prosthetic heart valve; Z71.89 Other specified counseling
CPT/HCPCS: 36415; 80048; 80061; 82306; 84450; 84460

== ENCOUNTER 2024-11-06 09:18 | Outpatient (AMB) | payer MEDICARE, SELFPAY ==
--- OUTSIDE RECORDS SUMMARY | 2024-11-06 09:45 | XMS_ITS | Encounter Summary ---
Author Organization [facility] Address [address] [place] [phone] Phone Care Team Providers Care Drum Tender Name Role Phone Moira Pate MD Primary Care Provider Encounter Details Date Type Department Care Team (Late st Contact Info) Description 04/21/2017 Ancillary Orders Virtual Department [address] [place] [address] Moira Pate MD [address] [place] [id number] Breast cancer screening Social History Tobacco Use Types Packs/Day Years Used Date Smoking Tobacco: Former Cigarettes Q uit: 03/02/2015 Smokeless Tobacco: Never Alcohol Use Standard Drinks/Week Comments Yes 0 (1 standard drink = 0.6 oz pur e alcohol) Comments Unknown Sex and Gender Information Value Date Recorded Sex Assigned at Female 10/20/2022 10:40 AM EDT Legal Sex Female 9:55 PM EDT Gender Identity Female 10/20/2022 10:40 AM EDT Sexual Orientation Straight 10/20/2022 10 :40 AM EDT documented as of this encounter Plan of Treatment Not on file documented as of this encounter Results * BI MAMMOGRAM SCREENING WITH TOMOSYNTHESIS WITH CAD (BILATERAL) (05/24/2017 10:23 AM EST) Anatomical Region Laterality Modality Breast Left, Breast Right, Breast Bilateral Bila teral Mammography 05/24/2017 12:4 9 PM EST Impressions 05/25/2017 9:06 AM EST No mammographic signs of malignancy. Annual screening is recommended. BI-RADS CATEGORY: 1 - Negative. DENSITY: The breast tissue is almost entirely fat. POS - [facility] Narrative 05/25/2017 9:06 AM EST Bilateral mammography is performed in conjunction with computed aided detection. 3-D tomography along with 2-D C view imaging was also performed. Comparison made to previous dated as far back as 11/21/10 and as recent as 05/19/2016. No suspicious masses, areas of architectural distortion or suspicious microcalcifications. Procedure Note Jabier Parker MD - 05/25/2017 Bilateral mammography is performed in conjunction with computed aideddetection. 3-D tomography along with 2-D C view imaging was alsoperformed. Comparison made to previous dated as far back as 11/21/10 and asrecent as 05/19/2016. No suspicious masses, areas of architectural distortion or suspiciousmicrocalcifications. IMPRESSION: No mammographic signs of malignancy. Annual screening is recommended. BI-RADS CATEGORY: 1 - Negative. DENSITY: The breast tissue is almost entirely fat. POS - [facility] Moira Pate MD IMG MG EXAMS Final Result documented in this encounter Visit Diagnoses Diagnosis Breast cancer screening Breast screening, unspecified Breast cancer screening Breast screening, unspecified documented in this encounter Care Teams Drum Tender Relationship Specialty Start Date End Date Moira Pate MD PCP - General 03/02/17 documented as of this encounter Additional Source Comments The information contained in this document represents components of the legal health record. It is not the complete legal health record.[facility]
--- OUTSIDE RECORDS SUMMARY | 2024-11-06 09:45 | XMS_ITS | Patient Health Record ---
Author Organization [facility] Address [address] [place] [phone] Care Team Providers Care Insurance Administrative Assistant Name Role Phone Herlinda PENNY, Moira Primary Care Provider Aric Sandoval Unavailable [phone] Reason For Referral No Information Medications Medication [...] Problem Status W/U Status Risk Notes Problem [id number] Encounter for screening for malignant neoplasm of colon (Z12.11) Active confirmed Problem 462402757 Preprocedural examination (Z01.818) Active confirmed Problem 248673672 Aspirin long-ter m use (Z79.82) Active confirmed Plan Of Treatment Future Test Test Name Order Date COLONOSCOPY 04/15/2017 Insurance Providers Payer Name Payer Address Payer Phone Subscriber Number Group Number Insured Name Patient Relationship to Insured Coverage Start Date Coverage End Date [employer] [address] [place] [address] [id number] KAYLAN COYNE Self - patient is the insured MEDICAID OF [employer] [address] [place] [address] [id number] KAYLAN COYNE Self - patient is the insured Medical (General) History Medical History History ICD Code Bovine aortic valve replacement 01/2016 at [facility]--? Aortic stenosis Denies [place],DM,CVA,Lung disease,renal dise ase Hyperlipidemia Sleep apnea--but not using the CPAP regu larly Screening colonoscopy in Nov with removal of hyperplastic polyps--also noted to have internal and external hemorrhoids Surgical History Surgery Date(Month/Year) Aortic valve replacement--Bovine Tendonitis right surgery-right wrist
[2024-11-06 09:49] VITALS: BP 136/60; PULSE 70; RESP 16; TEMP 36.8; O2SAT 97; BMI 29.5
--- NOTE | 2024-11-06 09:49 | A.OFFPC_ITS ---
Vital Signs 11/06/24 09:49 Height 5 ft 6 in Weight 183 lb BMI 29.5 BP 136/60 Blood Pressure Location Rt brachial Position Sitting Respiration 16 Pulse 70 Pulse Source Pulse Oximeter Temp 98.2 F Temp Source Oral Pulse Oximetry (%) 97 Oxygen Delivery Method Room Air Intake Visit Reasons: 6 month follow up Intake Note: Pt is here today for her 6mo. f/u Allergies No Known Allergies (No Known Allergies*) Allergy (Verified 11/11/24 19:28) Medication List - Last Reconciled 11/11/24 by Moira Pate MD aspirin 81 mg PO DAILY atorvastatin (Lipitor) 40 mg PO QPM diphenhydramine-acetaminophen 25-500 mg (Tylenol PM Extra Strength) 1 tab PO BEDTIME PRN metoprolol succinate ER 25 mg PO DAILY multivitamin 1 tab PO DAILY Tobacco use date assessed: 11/06/24 Fall risk assessment: No Falls in past year Last assessed Fall Risk: 11/06/24 Dental Screening Dental Screen Date: 11/06/24 Did you have a dental visit in the last 12 months?: Yes Did you have a dental problem in the last 6 months where you did not have access to dental care?: No Was dental information given to patient?: Patient has dentist HPI 6 month follow up HPI Details 68-year-old lady with history of aortic stenosis status post aortic valve replacement, has dyslipidemia, hypertension impaired fasting glucose and obstructive sleep apnea currently on CPAP, here today for follow-up. Patient states that she has been feeling well compliant with taking her medications has been exercising regularly. Latest fasting labs showed normal electrolytes fasting fasting glucose, renal function but LDL cholesterol slightly higher than last check. [facility] Medical History Elevated liver enzymes Impaired fasting glucose Menopause syndrome Dyslipidemia Secondary hypertension Atrial flutter Nonrheumatic aortic (valve) stenosis Surgical History Hx of cardiac cath (~11/2016) H/O aortic valve replacement History of colonoscopy Family History Father COPD (chronic obstructive pulmonary disease) Smoker Mother Lung cancer CVD (cardiovascular disease) Maternal Grandmother No problems noted. Brother Bacterial endocarditis Brother No problems noted. Brother No problems noted. Sister No problems noted. Sister No problems noted. Sister No problems noted. Daughter No problems noted. Daughter No problems noted. Social History Housing: House Alcohol intake: current Alcohol intake frequency: a few times a week Alcohol type: beer Patient Tobacco Use Status: Former Tobacco user Years Smoked: started in her 20's, 10 cig. a day, quit 8 years ago e-Cigarette/Vaping Use: Never Used Advance Directives Date on File: 09/11/21 service: No Current occupational status: employed Cognitive needs: No Hearing needs: No Vision needs: Yes Questionnaire PHQ-9 Over the last 2 weeks, how often have you been bothered by any of the following problems? 1. Little interest or pleasure in doing things: several days 2. Feeling down, depressed, or hopeless: not at all 3. Trouble falling or staying asleep, or sleeping too much: more than half the days 4. Feeling tired or having little energy: several days 5. Poor appetite or overeating: not at all 6. Feeling bad about yourself - or that you are a failure or have let yourself or your family down: not at all 7. Trouble concentrating on things, such as reading the newspaper or watching television: several days 8. Moving or speaking so slowly that other people could have noticed. Or the opposite - being so fidgety or restless that you have been moving around a lot more than usual: not at all 9. Thoughts that you would be better off or of hurting yourself in some way: not at all Total score: 5 Depression Screening Interpretation: Negative Depression Screening Done: Yes 31418 - PHQ-9 Billing: Yes Source: Developed by Drs. Aric Owens, Estefanía Quezada, Rene Rivera and colleagues, with an educational camron from [employer]. Thrive Questionnaire Date Thrive assessed: 10/30/24 I am a: Patient What is your living situation today?: I have a steady place to live Within the past 12 months, did the food you bought not last and you didn't have the money to get more?: Never true Within the past 12 months, did you worry whether your food would run out before you got money to buy more?: Never true Do you have trouble paying for medicines?: No Do you have trouble getting transportation to medical appointments?: No Do you have trouble paying your heating and electricity bill?: No Do you have trouble taking care of your child, family member or friend?: No Do you have trouble with day-to-day activities such as bathing, preparing meals, shopping, managing finances, etc.?: No Are you currently unemployed and looking for a job?: No Are you interested in more education?: No Please select the resources that you would like help with: None Currently or been in a relationship where the following occur: No concerns reported THRIVE Score: 0 AUDIT C Alcohol Use Questionnaire (AUDIT-C) 1. How often do you have a drink containing alcohol?: 2-3 times a week 2. How many drinks containing alcohol do you have on a typical day when you are drinking?: 3 or 4 3. How often do you have six or more drinks on one occasion?: Never Total Score: 4 BE-7 AMB Questionnaire BE-7 Date BE - 7 assessed: 04/24/24 Feeling nervous, anxious, or on edge: 0 = Not at all Not being able to stop or control worryin = Several days Worrying too much about different things: 1 = Several days Trouble relaxin = More than half the days Being so restless that it is hard to sit still: 0 = Not at all Becoming easily annoyed or irritable: 0 = Not at all Feeling afraid as if something awful might happen: 0 = Not at all Total BE-7 score (0-4 normal; 5-9 mild; 10-14 moderate; 15-21 severe): 4 Source: Developed by Drs. Aric Owens, Estefanía Quezada, Rene Rivera and colleagues, with an educational camron from [employer]. BE-7 Assessment Billing BE-7 Assessment Tool: BE-7 Assessment 61827 Review of Systems Const Denies fatigue, Denies fever(s), Denies frequent falls, Denies weakness and Denies weight gain Eyes Denies change in vision ENT Denies dizziness Card Denies chest pain, Denies leg edema, Denies lightheadedness, Denies palpitations, Denies dyspnea, Denies dyspnea on exertion and Denies orthopnea Resp Denies cough, Denies dyspnea and Denies dyspnea on exertion GI Denies abdominal pain, Denies hematochezia, Denies change in bowel habits, Denies change in stool character and Denies heartburn Reports no additional complaints Musc Denies abnormal gait, Denies muscle weakness, Denies numbness, Denies radiating pain into limb and Denies tingling Neuro Denies abnormal gait, Denies dizziness, Denies frequent falls, Denies numbness, Denies tingling and Denies weakness Psych Reports no additional complaints Endo Denies fatigue and Denies palpitations Manuel/Lymph Reports no additional complaints Aller/Immun Reports no additional complaints Physical exam (Primary Care) Vital Signs: Last Vital Signs Temp 98.2 F 11/06/24 09:49 Pulse 70 11/06/24 09:49 Resp 16 11/06/24 09:49 BP 136/60 11/06/24 09:49 Pulse Ox 97 11/06/24 09:49 Oxygen Delivery Method Room Air 11/06/24 09:49 BMI result Body Mass Index 29.5 Tobacco/Smoking Status: Tobacco use Status Tobacco use date assessed 11/06/24 11/06/24 09:51 Patient Tobacco Use Status Former Tobacco user 11/06/24 09:51 e-Cigarette/Vaping Use Never Used 11/06/24 09:51 PHQ-9: PHQ-9 Score PHQ-9: Total score 5 11/06/24 10:41 Depression Screening Interpretation: Negative Thrive Assessment: Date of Thrive Assessment Date Thrive assessed 10/30/24 11/06/24 09:51 Currently or been in a relationship where the following occur: No concerns reported Const General: comfortable and no acute distress Orientation/consciousness: patient oriented x3 [facility] General nose exam: Normal external nose present Mouth: oropharynx normal and moist mucous membranes Eyes General: appearance normal, both eyes and all related structures Neck Neck: Yes full ROM, Yes no lymphadenopathy and Yes supple Resp Effort & Inspection: normal respiratory effort and able to speak in complete sentences Auscultation: clear to auscultation bilaterally Cardio Rate: regular rate Rhythm: regular rhythm Heart sounds: S1 normal heart sound present, S2 normal heart sound present and Murmur heart sound present (Soft murmur heard on left sternal border) GI Palpation (GI): Soft to palpation, nontender and no masses Auscultation: normal bowel sounds Back/Spine/Pelvis Back: No back tenderness Neuro General: patient oriented x3, gait normal, tone normal, moves all extremities, Normal light touch and pain sensation and no focal motor deficits Cognition (Neuro): normal cognition Gait exam (Neuro): Normal gait present Motor exam (neuro): 5/5 motor strength present throughout Extrem General: Yes full ROM, Yes no joint enlargement, Yes no pedal edema, Yes no calf tenderness and Yes normal gait Psych Appearance: grossly normal and well kempt Mental Status: mental status grossly normal Speech and movement: Normal speech and movement present Affect: normal affect Results Reviewed Results Reviewed: therese: Carly Cox Age/Sex: 68/F : 1955 Unit#: [id number] Attend Dr: Therese Pittman MD Re11/01/24 Status: DEP REF Location: [facility] Disch: SPEC : [id number] WALLACE: 11/01/24 STATUS: COMP REQ : [id number] RECD: 11/01/[address]: Moira Pate MD COMP: 11/01/24 ENTERED: 11/01/[address]: Therese Pittman MD ORDERED: Met Prof Fast, AST, ALT, Lipid Panel, Vitamin D 25-OH Test Result Flag Reference Sodium 142 135-145 mmol/L Potassium 4.6 3.3-5.1 mmol/L CL 107 96-108 mmol/L CO2 29 22-29 mmol/L Gap 11 L 12-20 BUN 17 H 9-16 mg/dL Creat 0.75 0.5-1.4 mg/dL eGFR > 60 Chronic Kidney Disease: Estimated GFR < 60 mL/min/1.73m2 Severe Kidney Disease: Estimated GFR < 15 mL/min/1.73m2 FBS 98 60-99 mg/dL CA 9.5 # 8.4-10.2 mg/dL AST (GOT) 32 H 5-31 U/L ALT (GPT) 43 H 0-31 U/L Triglyceride 88 <150 mg/dL Desirable Triglyceride: less than 150 mg/dL Borderline High Triglyceride 150-199 mg/dL High Triglyceride: 200-499 mg/dL Very High Triglyceride: greater than or equal to 5OO mg/dL Cholesterol 182 <200 mg/dL Desirable Cholesterol: less than 200 mg/dL Borderline High Cholesterol: 200-239 mg/dL High Cholesterol: greater than 239 mg/dL LDL Calculated 101 H <100 mg/dL Desirable LDL: less than 100 mg/dL Near Optimal/Above Optimal LDL: 110-129 mg/dL Borderline High LDL: 130-159 mg/dL High LDL: 160-189 mg/dL Very High LDL: greater than or equal to 190 mg/dL HDL 64 >40 mg/dL Desirable HDL: greater than 40 mg/dL Note: This HDL assay may give artificially low results in patients with liver disease. Vitamin D 25-OH 87.3 >30 ng/mL Health Based Reference Values* < 20 ng/mL Deficient 20-30 ng/mL Insufficient > 30 ng/mL Sufficient Coding Level of Care Code Est Pt Level 4 (56029) Diagnoses Dyslipidemia E78.5 Elevated liver enzymes R74.8 Secondary hypertension I15.9 H/O aortic valve replacement Z95.2 Additional Codes BE-7 Assessment Billing - BE-7 Assessment Tool: BE-7 Assessment 13480 ([id number]) PHQ-9 - 89765 - PHQ-9 Billing: Yes ([id number]) Assessment & Plan Assessment & Plan (1) Dyslipidemia: Code(s): E78.5 - Hyperlipidemia, unspecified Category: Medical Plan: Reviewed recent fasting lab results with patient, continue with atorvastatin 40 mg daily and healthy eating habits, cut back on alcohol intake and continue with regular exercise. (2) Elevated liver enzymes: Code(s): R74.8 - Abnormal levels of other serum enzymes Category: Medical Plan: Advised to cut back on alcohol intake. (3) Secondary hypertension: Code(s): I15.9 - Secondary hypertension, unspecified Category: Medical Plan: Continue metoprolol succinate 25 mg daily (4) H/O aortic valve replacement: Comment: 01/23/2016 with trifecta bioprosthetic valve Code(s): Z95.2 - Presence of prosthetic heart valve Category: Surgical Plan: Continued on aspirin 81 mg daily Orders: Orders Comprehensive [place]. Panel Fast 01/20/25 E78.5 - Hyperlipidemia, unspecified, R74.8 - Abnormal levels of other serum enzymes Lipid Panel 01/20/25 E78.5 - Hyperlipidemia, unspecified, R74.8 - Abnormal levels of other serum enzymes
== END 2024-11-06 10:45 | disposition home or self-care (01) ==
LOC: HO.HMCC 09:19
PROVIDERS: PCP Internal Medicine; Visit Provider Internal Medicine
DX: E78.5 Hyperlipidemia, unspecified (principal); R74.8 Abnormal levels of other serum enzymes; I15.9 Secondary hypertension, unspecified; Z95.2 Presence of prosthetic heart valve

== ENCOUNTER → 2024-11-06 09:18 | Outpatient (BNVA) | payer MEDICARE, SELFPAY | PROVIDERS: PCP Internal Medicine; Visit Provider Internal Medicine | DX: E78.5 Hyperlipidemia, unspecified (principal); R74.8 Abnormal levels of other serum enzymes; I15.9 Secondary hypertension, unspecified; Z95.2 Presence of prosthetic heart valve | CPT/HCPCS: 96127; 99212 ==

== ENCOUNTER 2024-12-11 13:55 | Outpatient (AMB) | payer MEDICARE, SELFPAY ==
[2024-12-11 13:59] VITALS: BP 138/62; PULSE 84; O2SAT 95; BMI 29.5
--- NOTE | 2024-12-11 13:59 | A.OFFVIS_ITS ---
Vital Signs 12/11/24 13:59 Height 5 ft 6 in Weight 183 lb BMI 29.5 BP 138/62 Blood Pressure Location Rt brachial Position Sitting Pulse 84 Pulse Source Pulse Oximeter Pulse Oximetry (%) 95 Oxygen Delivery Method Room Air Intake Visit Reasons: Obstructive sleep apnea Allergies No Known Allergies (No Known Allergies*) Allergy (Verified 12/11/24 14:04) HPI HPI Obstructive sleep apnea: Details: 68-year-old, former 20 pack-year smoker, 2013, followed for moderate ANNA on CPAP therapy. Patient has been trying to get used to CPAP mask, and she still has difficulties during that, however her symptoms are well controlled when she is able to utilize it with AHI down from 24 to less than 2. She has ongoing chronic cough productive of yellowish sputum. She was treated with a course of antibiotics with some improvement while on antibiotics, but recurrent off symptoms thereafter. She did try using Mucinex with improved symptom control. [facility] Medical History Elevated liver enzymes Impaired fasting glucose Menopause syndrome Dyslipidemia Secondary hypertension Atrial flutter Nonrheumatic aortic (valve) stenosis Surgical History Hx of cardiac cath (~11/2016) H/O aortic valve replacement History of colonoscopy Family History Father COPD (chronic obstructive pulmonary disease) Smoker Mother Lung cancer CVD (cardiovascular disease) Maternal Grandmother No problems noted. Brother Bacterial endocarditis Brother No problems noted. Brother No problems noted. Sister No problems noted. Sister No problems noted. Sister No problems noted. Daughter No problems noted. Daughter No problems noted. Social History Housing: House Alcohol intake: current Alcohol intake frequency: a few times a week Alcohol type: beer Patient Tobacco Use Status: Former Tobacco user Years Smoked: started in her 20's, 10 cig. a day, quit 8 years ago e-Cigarette/Vaping Use: Never Used Advance Directives Date on File: 09/11/21 service: No Current occupational status: employed Cognitive needs: No Hearing needs: No Vision needs: Yes Review of Systems Const Denies daytime sleepiness, Denies excessive sweating, Denies fatigue, Denies fever(s), Denies lethargy, Denies malaise, Denies night sweats, Denies snoring and Denies weight loss Eyes Denies blurry vision and Denies itchy eyes ENT Denies nasal congestion, Denies post nasal drip, Denies sinus pain, Denies sinus pressure and Denies other ( Thrush) Card Denies chest pain, Denies pedal edema, Denies dyspnea, Denies orthopnea and Denies paroxysmal nocturnal dyspnea Resp Reports cough, Denies hemoptysis, Denies excessive phlegm production, Denies dyspnea, Denies snoring and Denies wheezing GI Denies abdominal pain and Denies heartburn Musc Denies myalgias, Denies arthralgias and Denies joint swelling Skin/Breast Denies rash Neuro Denies memory loss and Denies seizure-like activity Psych Denies abnormal sleep pattern, Denies anxiety and Denies memory loss Endo Denies excessive sweating, Denies fatigue and Denies heat intolerance Manuel/Lymph Denies easy bruising Aller/Immun Denies itchy eyes, Denies seasonal rhinorrhea and Denies wheezing Physical Exam Vital Signs: Last Vital Signs Pulse 84 12/11/24 13:59 BP 138/62 12/11/24 13:59 Pulse Ox 95 12/11/24 13:59 Oxygen Delivery Method Room Air 12/11/24 13:59 BMI result Body Mass Index 29.5 Const General: no acute distress and alert Nutritional Appearance: not obese Orientation/consciousness: Other orientation findings ( oriented) HEENT Head: Yes atraumatic Eyes General: appearance normal, both eyes and all related structures Sclerae: sclerae normal EOM: EOMs intact bilaterally Neck Neck: Yes supple Lymphatic: no lymphadenopathy noted Resp Effort & Inspection: normal respiratory effort and no use of accessory muscles Auscultation: clear to auscultation bilaterally Cardio Rate: regular rate Rhythm: regular rhythm Heart sounds: no gallops, no murmurs and no rubs Skin General skin exam: other ( warm) Extrem General: No clubbing, No cyanosis and No edema Assessment & Plan Assessment & Plan (1) ANNA (obstructive sleep apnea): Code(s): G47.33 - Obstructive sleep apnea (adult) (pediatric) Category: Medical Plan: Patient still has some difficulties using CPAP and supplements with jaw advan cement device when she can not use CPAP, overall with significantly improved symptom control and improved AHI down to 2 from 25. Continue current therapy. (2) Cough: Code(s): R05.9 - Cough, unspecified Category: Medical Plan: Suboptimal response to antibiotic therapy, but now with reasonable control on mucolytic. Continue current regimen. Coding Level of Care Code Est Pt Level 4 (45577) Diagnoses ANNA (obstructive sleep apnea) G47.33 Cough R05.9
--- OUTSIDE RECORDS SUMMARY | 2024-12-11 15:16 | XMS_ITS | Encounter Summary ---
Author Organization [facility] Address [address] [place] [id number] Phone Care Team Providers Care Unit Control Clerk Name Role Phone Moira Pate MD Primary Care Provider Encounter Details Date Type Department Care Team (Late st Contact Info) Description 04/21/2017 Ancillary Orders Virtual Department [address] [place] [address] Moira Pate MD [address] [place] [id number] Breast cancer screening Social History Tobacco Use [...] unspecified documented in this encounter Care Teams Unit Control Clerk Relationship Specialty Start Date End Date Moira Pate MD [facility] [place] [id number] PCP - General 03/02/17 documented as of this encounter Additional Source Comments The information contained in this document represents components of the legal health record. It is not the complete legal health record.[facility]
--- OUTSIDE RECORDS SUMMARY | 2024-12-11 15:18 | XMS_ITS | Clinical Summary ---
Author Organization [facility] Address [address] [facility] [address] [place] [address] Phone Care Team Providers Care Basin Operator Name Role Phone Moira Pate MD Primary Care Provider Allergies No known active allergies Medications metoprolol succinate (TOPROL-XL) 25 MG 24 hr tablet Take 25 mg by mouth daily. 3 04/29/2017 Active MULTIVITAMIN ORAL Take 1 tablet by mouth daily. Active aspirin 81 mg chewable tablet Take 81 mg by mouth. Active atorvastatin (LIPITOR) 40 MG tablet Take 40 mg by mouth nightly at bedtime. 07/20/2022 Active Active Problems Problem Noted Date Diagnosed Date Squamous cell carcinoma of right shoulder 2022 Family History Medical History Relation Comments Cancer Mother Breast cancer Sister Relation Status Comments Father Mother Sister Social History Tobacco Use Types Packs/Day Years Used Date Smoking Tobacco: Former Cigarettes Q uit: 03/02/2015 Smokeless Tobacco: Never Alcohol Use Standard Drinks/Week Comments Yes 0 (1 standard drink = 0.6 oz pur e alcohol) 1 daily Education Answer Date Recorded Are you interested in more education? Not on sara e 08/14/2022 Are you concerned about learning? Not on file 08/14/2022 No 08/14/2022 No 08/14/2022 Digital Access Answer Date Recorded No 09/11/2022 No 09/11/2022 Reliable internet access at home? Not on file 09/11/2022 Device with a working camera? Not on file Comments No Sex and Gender Information Value Date Recorded Sex Assigned at Female 10/20/2022 10:40 AM EDT Legal Sex Female 9:55 PM EDT Gender Identity Female 10/20/2022 10:40 AM EDT Sexual Orientation Straight 10/20/2022 10 :40 AM EDT Last Filed Vital Signs Vital Sign Reading Time Taken Comments Blood Pressure 130/52 12/01/2023 10:03 AM EDT Pulse 79 12/12/2018 4:07 PM EDT Temperature 36.8 C (98.3 F) 12/12/2018 4:07 PM EDT Respiratory Rate 18 01/18/2018 7:59 PM EDT Oxygen Saturation 96% 12/12/2018 4:07 PM EDT Inhaled Oxygen Concentration - - Weight 82.8 kg (182 lb 9.6 oz) 12/01/2023 10:03 AM EDT Height 162.6 cm (5' 4 ) 12/01/2023 10:03 AM EDT Body Mass Index 31.34 12/01/2023 10:03 AM EDT Plan of Treatment Health Maintenance Due Date Last Done Comments DEPRESSION SCREENING 1966 SMOKING Hx and SMOKELESS TOBACCO SCREENING 12/20/1967 HEPATITIS C SCREENING 1972 COLOGUARD 12/20/1999 COLONOSCOPY 12/20/1999 COLORECTAL CANCER SCREENING 12/20/1999 FIT TEST 12/20/1999 FOBT 12/20/1999 SIGMOIDOSCOPY 12/20/1999 VIRTUAL COLONOSCOPY 12/20/1999 OSTEOPOROSIS SCREENING INITIAL (ONE-TIME) 12/20/2019 MAMMOGRAM 04/04/2021 04/04/2019, 03/19, 05/24/2017 SCREENING FOR DIABETES 02/11/2023 02/12/2020 COVID-19 VACCINE ( season) 2024 11/16/2023, 03/18/2021 INFLUENZA VACCINE (#1) 2024 , 03/24/2022, 04/09/2021, Additional history exists LIPID PANEL 02/11/2025 02/12/2020 Adult Td,Tdap Booster 03/20/2026 03/20/2016 RSV VACCINE (1 - 1-dose 75+ series) 2029 ZOSTER VACCINES Completed 09/02/2018, 07/15/2017 PNEUMOCOCCAL VACCINES (50+ years) Completed 09/08/2021, 08/26/2020 HEPATITIS A VACCINES Aged Out No long er eligible based on patient's age to complete this topic HIB VACCINES Aged Out No longer eligi ble based on patient's age to complete this topic MENINGOCOCCAL VACCINES (ACWY) Aged Out No longer eligible based on patient's age to complete this topic MENINGOCOCCAL VACCINES (B) Aged Out N o longer eligible based on patient's age to complete this topic Medical Devices Not on file Procedures Procedure Name Priority Date/Time Associated Diagnosis Comments LIPID PANEL Routine 02/12/2020 8:59 AM EDT Anxiety hyperventilation Essential hypertension, malignant Hyperlipidemia, unspecified hyperlipidemia type BI MAMMOGRAM SCREENING WITH TOMOSYNTHESIS WITH CAD (BILATERAL) Routine 04/04/2019 9:47 AM EST Breast screening from Last 3 Months or Most Recently Relevant to Health Maintenance Results * (ABNORMAL) Lipid panel (02/12/2020 8:59 AM EDT) HDL 79 mg/dL [facility] Comment: Interpretation <40 mg/dL: Low HDL cholesterol (major risk factor for CHD) Greater than or equal to 60 mg/dL: High HDL cholesterol ( negative risk factor for CHD) HDL - cholesterol is affected by a number of factors, e.g. smoking, excerise, hormones, sex and age. CHOLESTEROL 209 0 - 240 mg/dL [facility] TRIGLYCERIDES 51 30 - 160 mg/dL [facility] LDL 120 50 - 129 mg/dL [facility] Comment: LDL levels in terms of risk for coronary heart disease: <100 mg/dL: Optimal 100-129 mg/dL: Near or above optimal 130-159 mg/dL: Borderline high 160-189 mg/dL: High >190 mg/dL: Very High CARDIAC RISK RATIO 2.6(L) 3.3 - 4.4 [facility] Blood 02/12/2020 8:59 AM EDT 02/12/2020 9:04 AM EDT us Moira Pate MD LAB BLOOD ORDERABLES F inal Result [facility] [address] [place] [address] * BI MAMMOGRAM SCREENING WITH TOMOSYNTHESIS WITH CAD (BILATERAL) (04/04/2019 9:47 AM EST) Anatomical Region Laterality Modality Breast Left, Breast Right, Breast Bilateral Bila teral Mammography 04/04/2019 2:54 PM EST Impressions 04/04/2019 2:55 PM EST RIGHT breast: No mammographic evidence of malignancy. LEFT breast: No mammographic evidence of malignancy. RECOMMENDED FOLLOWUP: Routine screening mammography is recommended, as clinically appropriate. The results will be sent by mail to the patient. BI-RADS CATEGORY: 1 - Negative. BREAST COMPOSITION: There are scattered fibroglandular densities. POS - [id number] Narrative 04/04/2019 2:55 PM EST EXAM: BI MAMMOGRAM SCREENING WITH TOMOSYNTHESIS WITH CAD (BILATERAL) HISTORY: Screening. * Annual COMPARISON: Prior mammograms, most recent 05/24/2017 and dating back to 2011. TECHNIQUE: Digital breast tomosynthesis was performed in CC and MLO projections. Reconstructed 2-D C-views generated from the tomosynthesis images. Images interpreted in conjunction with R-2 Image Card Game Operator computer-aided detection (CAD). FINDINGS: BREAST COMPOSITION: There are scattered areas of fibroglandular density. RIGHT breast: There are no suspicious masses, suspicious areas of architectural distortion or suspicious clusters of microcalcifications. LEFT breast: There are no suspicious masses, suspicious areas of architectural distortion or suspicious clusters of microcalcifications. Procedure Note Harmony John MD - 04/04/2019 EXAM: BI MAMMOGRAM SCREENING WITH TOMOSYNTHESIS WITH CAD (BILATERAL) HISTORY: Screening. * Annual COMPARISON: Prior mammograms, most recent 05/24/2017 and dating back [id number]. TECHNIQUE: Digital breast tomosynthesis was performed in CC and MLOprojections. Reconstructed 2-D C-views generated from the tomosynthesisimages. Images interpreted in conjunction with R-2 Image Checkercomputer-aided detection (CAD). FINDINGS: BREAST COMPOSITION: There are scattered areas of fibroglandular density. RIGHT breast: There are no suspicious masses, suspicious areas ofarchitectural distortion or suspicious clusters of microcalcifications. LEFT breast: There are no suspicious masses, suspicious areas ofarchitectural distortion or suspicious clusters of microcalcifications. IMPRESSION: RIGHT breast: No mammographic evidence of malignancy. LEFT breast: No mammographic evidence of malignancy. RECOMMENDED FOLLOWUP: Routine screening mammography is recommended, asclinically appropriate. The results will be sent by mail to the patient. BI-RADS CATEGORY: 1 - Negative. BREAST COMPOSITION: There are scattered fibroglandular densities. POS - CDHMAM2 Moira Pate MD IMG MG EXAMS Final Result from Last 3 Months or Most Recently Relevant to Health Maintenance Insurance MEDICARE REPLACEMENT [facility] MEDICARE REPLACEMENT MEDICARE REPLACEMENT MEDICARE [place] [address] [place] [address] MEDICARE REPLACEMENT MEDICARE REPLACEMENT MEDICARE REPLACEMENT MEDICARE REPLACEMENT [facility] MEDICARE REPLACEMENT [place] [id number] Care Teams Basin Operator Relationship Specialty Start Date End Date Moira Pate MD [address] [facility] [place] [address] PCP - General 03/02/17 Additional Source Comments The information contained in this document represents components of the legal health record. It is not the complete legal health record.[facility]
--- OUTSIDE RECORDS SUMMARY | 2024-12-11 15:18 | XMS_ITS | Patient Health Record ---
Author Organization [facility] Address [address] [place] [id number] Care Team Providers Care Emergency Telecommunications Dispatcher Name Role Phone Herlinda PENNY, Moira Primary Care Provider Aric Sandoval Unavailable [phone] Reason For Referral No Information Medications Medication [...] Problem Status W/U Status Risk Notes Problem [id number] Encounter for screening for malignant neoplasm of colon (Z12.11) Active confirmed Problem [id number] Preprocedural examination (Z01.818) Active confirmed Problem [id number] Aspirin long-ter m use (Z79.82) Active confirmed Plan Of Treatment Future Test Test Name Order Date COLONOSCOPY 04/15/2017 Insurance Providers Payer Name Payer Address Payer Phone Subscriber Number Group Number Insured Name Patient Relationship to Insured Coverage Start Date Coverage End Date [employer] [address] [place] [address] [id number] KAYLAN COYNE Self - patient is the insured MEDICAID OF [employer] [address] [place] [address] [id number] KAYLAN COYNE Self - patient is the insured Medical (General) History Medical History History ICD Code Bovine aortic valve replacement 01/2016 at [facility]--? Aortic stenosis Denies NH,DM,CVA,Lung disease,renal dise ase Hyperlipidemia Sleep apnea--but not using the CPAP regu larly Screening colonoscopy in Nov with removal of hyperplastic polyps--also noted to have internal and external hemorrhoids Surgical History Surgery Date(Month/Year) Aortic valve replacement--Bovine Tendonitis right surgery-right wrist
--- OUTSIDE RECORDS SUMMARY | 2024-12-11 15:18 | XMS_ITS | Encounter Summary ---
Author Organization [facility] Address [address] [place] [address] Phone Care Team Providers Care Meter Repairer Helper Name Role Phone Moira Pate MD Primary Care Provider Encounter Details Date Type Department Care Team (Late st Contact Info) Description 04/03/2019 Ancillary Orders Virtual Department [address] [place] [address] Moira Pate MD [address] [place] [address] [place] [address] Breast screening Social History Tobacco Use Types Packs/Day Years Used Date Smoking Tobacco: Former Cigarettes Q uit: 03/02/2015 Smokeless Tobacco: Never Alcohol Use Standard Drinks/Week Comments Yes 0 (1 standard drink = 0.6 oz pur e alcohol) Comments No Sex and Gender Information Value [...] Images interpreted in conjunction with R-2 Image Ladle Car Operator computer-aided detection (CAD). FINDINGS: BREAST COMPOSITION: [...] mammograms, most recent 05/24/2017 and dating back [id number]. TECHNIQUE: Digital breast tomosynthesis was performed in [...] in this encounter Visit Diagnoses Diagnosis Breast screening Breast screening, unspecified Breast screening Breast screening, unspecified documented in this encounter Care Teams Meter Repairer Helper Relationship Specialty Start Date End Date Moira Pate MD [facility] [place] [address] PCP - General 03/02/17 documented as of this encounter Additional Source Comments The information contained in this document represents components of the legal health record. It is not the complete legal health record.[facility]
== END 2024-12-11 14:19 | disposition home or self-care (01) ==
LOC: HO.HPS 13:56
PROVIDERS: PCP Internal Medicine; Visit Provider Internal Medicine Pulmonary Disease
DX: G47.33 Obstructive sleep apnea (adult) (pediatric) (principal); R05.9 Cough, unspecified
CPT/HCPCS: 99214

== ENCOUNTER → 2024-12-11 13:55 | Outpatient (BNVA) | payer MEDICARE, SELFPAY | PROVIDERS: PCP Internal Medicine; Visit Provider Internal Medicine Pulmonary Disease | DX: G47.33 Obstructive sleep apnea (adult) (pediatric) (principal); R05.9 Cough, unspecified; Z80.1 Family history of malignant neoplasm of trachea, bronchus and lung; Z87.891 Personal history of nicotine dependence | CPT/HCPCS: 99212 ==

== ENCOUNTER 2025-02-05 08:18 | Outpatient (REF) | payer MEDICARE, SELFPAY ==
--- OUTSIDE RECORDS SUMMARY | 2025-02-05 08:36 | XMS_ITS | Encounter Summary ---
Author Organization [facility] Address [address] [place] [address] Phone Care Team Providers Care White Shoe Ragger Name Role Phone Moira Pate MD Primary Care Provider Encounter Details Date Type Department Care Team (Late st Contact Info) Description 04/21/2017 Ancillary Orders Virtual Department [address] [place] [address] Moira Pate MD [address] [place] [address] Breast cancer screening Social History Tobacco Use [...] unspecified documented in this encounter Care Teams White Shoe Ragger Relationship Specialty Start Date End Date Moira Pate MD [facility] [place] [address] PCP - General 03/02/17 documented as of this encounter Additional Source Comments The information contained in this document represents components of the legal health record. It is not the complete legal health record.[facility]
--- OUTSIDE RECORDS SUMMARY | 2025-02-05 08:36 | XMS_ITS | Encounter Summary ---
Author Organization [facility] Address [address] [place] [address] Phone Care Team Providers Care Pharmacy Tech Customer Service Name Role Phone Moira Pate MD Primary Care Provider Encounter Details Date Type Department Care Team (Late st Contact Info) Description 04/03/2019 Ancillary Orders Virtual Department [address] [place] [address] Moira Pate MD [address] [place] [address] [place] [address] Breast screening Social History Tobacco Use Types [...] Images interpreted in conjunction with R-2 Image Batch And Furnace Operator computer-aided detection (CAD). FINDINGS: BREAST COMPOSITION: [...] mammograms, most recent 05/24/2017 and dating back [id number]. TECHNIQUE: Digital breast tomosynthesis was performed in [...] unspecified documented in this encounter Care Teams Pharmacy Tech Customer Service Relationship Specialty Start Date End Date Moira Pate MD [facility] [place] [address] PCP - General 03/02/17 documented as of this encounter Additional Source Comments The information contained in this document represents components of the legal health record. It is not the complete legal health record.[facility]
--- OUTSIDE RECORDS SUMMARY | 2025-02-05 08:36 | XMS_ITS | Clinical Summary ---
Author Organization [facility] Address [address] [facility] [address] [place] [address] Phone Care Team Providers Care Product Safety Administrator Name Role Phone Moira Pate MD Primary [...] (ONE-TIME) 12/20/2019 MAMMOGRAM 04/04/2021 04/04/2019, 03/19, 05/24/2017 INFLUENZA VACCINE (#1) 2024 , 03/24/2022, 04/09/2021, Additional history exists COVID-19 VACCINE ( season) 2024 11/16/2023, 03/18/2021 LIPID PANEL 02/11/2025 02/12/2020 Adult Td,Tdap Booster [...] (02/12/2020 8:59 AM EDT) HDL 79 mg/dL [facility] Comment: Interpretation <40 mg/dL: Low HDL cholesterol (major risk factor for CHD) Greater than or equal to 60 mg/dL: High HDL cholesterol ( negative risk factor for CHD) HDL - cholesterol is affected by a number of factors, e.g. smoking, excerise, hormones, sex and age. CHOLESTEROL 209 0 - 240 mg/dL [facility] TRIGLYCERIDES 51 30 - 160 mg/dL [facility] LDL 120 50 - 129 mg/dL [facility] Comment: LDL levels in terms of risk for coronary heart disease: <100 mg/dL: Optimal 100-129 mg/dL: Near or above optimal 130-159 mg/dL: Borderline high 160-189 mg/dL: High >190 mg/dL: Very High CARDIAC RISK RATIO 2.6(L) 3.3 - 4.4 [facility] Blood 02/12/2020 8:59 AM EDT 02/12/2020 9:04 AM EDT us Moira Pate MD LAB BLOOD ORDERABLES F inal Result [address] [address] * BI MAMMOGRAM SCREENING WITH TOMOSYNTHESIS WITH [...] Images interpreted in conjunction with R-2 Image Finance Mgr computer-aided detection (CAD). FINDINGS: BREAST COMPOSITION: There [...] mammograms, most recent 05/24/2017 and dating back [id number]. TECHNIQUE: Digital breast tomosynthesis was performed in [...] Relevant to Health Maintenance Insurance MEDICARE REPLACEMENT MEDICARE REPLACEMENT [place] [id number] MEDICARE REPLACEMENT MEDICARE REPLACEMENT [facility] MEDICARE REPLACEMENT MEDICARE REPLACEMENT MEDICARE REPLACEMENT [facility] MEDICARE REPLACEMENT [facility] MEDICARE REPLACEMENT Care Teams Product Safety Administrator Relationship Specialty Start Date End Date Moira Pate MD [address] [facility] [place] [address] PCP - General 03/02/17 Additional Source Comments The information contained in this document represents components of the legal health record. It is not the complete legal health record.[facility]
[2025-02-05 11:02] LABS: Alanine Aminotransferase 28 U/L (0-31); Albumin Level 4.4 g/dL (3.5-5.0); Alkaline Phosphatase 55 U/L (39-117); Anion Gap 14 (12-20); Aspartate Amino Transferase 26 U/L (5-31); Blood Urea Nitrogen 20 mg/dL (9-16); Calcium 9.1 mg/dL (8.4-10.2); Carbon Dioxide 27 mmol/L (22-29); Chloride 105 mmol/L (96-108); Cholesterol 168 mg/dL (<200); Estimated Glomerular Filt Rate > 60; HDL Cholesterol 57 mg/dL (>40); Potassium 4.1 mmol/L (3.3-5.1); Sodium 142 mmol/L (135-145); Total Protein 7.0 g/dL (6.5-8.0); Triglycerides 83 mg/dL (<150)
== END 2025-02-05 08:19 | disposition home or self-care (01) ==
LOC: HO.HMGCLDS 08:18
PROVIDERS: PCP Internal Medicine; Visit Provider Internal Medicine
DX: R74.8 Abnormal levels of other serum enzymes (principal); E78.5 Hyperlipidemia, unspecified
CPT/HCPCS: 36415; 80053; 80061

== ENCOUNTER 2025-02-07 11:10 | Outpatient (AMB) | payer MEDICARE, SELFPAY ==
[2025-02-07 12:07] VITALS: BP 140/52; PULSE 91; RESP 16; TEMP 36.7; O2SAT 98; BMI 29.7
--- NOTE | 2025-02-07 12:07 | A.OFFPC_ITS ---
Vital Signs 02/07/25 12:07 Height 5 ft 6 in Weight 184 lb BMI 29.7 BP 140/52 H Blood Pressure Location Rt brachial Position Sitting Respiration 16 Pulse 91 Pulse Source Pulse Oximeter Temp 98.1 F Pulse Oximetry (%) 98 Oxygen Delivery Method Room Air Intake Visit Reasons: 3 months ffup lipids, lver enzymes Intake Note: Pt is here today for her 3mo. f/u lipids and liver emzymes Allergies No Known Allergies (No Known Allergies*) Allergy (Verified 02/07/25 12:17) Medication List - Last Reconciled 02/07/25 by Moira Pate MD aspirin 81 mg PO DAILY atorvastatin (Lipitor) 40 mg PO QPM metoprolol succinate ER 25 mg PO DAILY multivitamin 1 tab PO DAILY Tobacco use date assessed: 02/07/25 Fall risk assessment: No Falls in past year Last assessed Fall Risk: 02/07/25 Dental Screening Dental Screen Date: 02/07/25 Did you have a dental visit in the last 12 months?: Yes Did you have a dental problem in the last 6 months where you did not have access to dental care?: No Was dental information given to patient?: Patient has dentist HPI 3 months ffup lipids, lver enzymes HPI Details 69-year-old lady-with history of aortic stenosis status post aortic valve replacement, has dyslipidemia, hypertension impaired fasting glucose and obstructive sleep apnea currently on CPAP, here today for follow-up. She has been compliant with taking her medications, has cut back on her alcohol intake and tries to follow a healthy diet. [facility] Medical History (Updated 02/16/25 @ 04:36 by Moira Pate MD) Impaired fasting glucose Menopause syndrome Dyslipidemia Secondary hypertension Atrial flutter Nonrheumatic aortic (valve) stenosis Surgical History Hx of cardiac cath (~11/2016) H/O aortic valve replacement History of colonoscopy Family History Father COPD (chronic obstructive pulmonary disease) Smoker Mother Lung cancer CVD (cardiovascular disease) Maternal Grandmother No problems noted. Brother Bacterial endocarditis Brother No problems noted. Brother No problems noted. Sister No problems noted. Sister No problems noted. Sister No problems noted. Daughter No problems noted. Daughter No problems noted. Social History Housing: House Alcohol intake: current Alcohol intake frequency: a few times a week Alcohol type: beer Patient Tobacco Use Status: Former Tobacco user Years Smoked: started in her 20's, 10 cig. a day, quit 8 years ago e-Cigarette/Vaping Use: Never Used Advance Directives Date on File: 09/11/21 service: No Current occupational status: employed Cognitive needs: No Hearing needs: No Vision needs: Yes Questionnaire PHQ-9 Over the last 2 weeks, how often have you been bothered by any of the following problems? 1. Little interest or pleasure in doing things: several days 2. Feeling down, depressed, or hopeless: not at all 3. Trouble falling or staying asleep, or sleeping too much: more than half the days 4. Feeling tired or having little energy: several days 5. Poor appetite or overeating: not at all 6. Feeling bad about yourself - or that you are a failure or have let yourself or your family down: not at all 7. Trouble concentrating on things, such as reading the newspaper or watching television: several days 8. Moving or speaking so slowly that other people could have noticed. Or the opposite - being so fidgety or restless that you have been moving around a lot more than usual: not at all 9. Thoughts that you would be better off or of hurting yourself in some way: not at all Total score: 5 Depression Screening Interpretation: Negative Depression Screening Done: Yes Source: Developed by Drs. Aric Owens, Estefanía Quezada, Rene Rivera and colleagues, with an educational camron from [employer]. Thrive Questionnaire Date Thrive assessed: 10/30/24 I am a: Patient What is your living situation today?: I have a steady place to live Within the past 12 months, did the food you bought not last and you didn't have the money to get more?: Never true Within the past 12 months, did you worry whether your food would run out before you got money to buy more?: Never true Do you have trouble paying for medicines?: No Do you have trouble getting transportation to medical appointments?: No Do you have trouble paying your heating and electricity bill?: No Do you have trouble taking care of your child, family member or friend?: No Do you have trouble with day-to-day activities such as bathing, preparing meals, shopping, managing finances, etc.?: No Are you currently unemployed and looking for a job?: No Are you interested in more education?: No Please select the resources that you would like help with: None Currently or been in a relationship where the following occur: No concerns reported THRIVE Score: 0 AUDIT C Alcohol Use Questionnaire (AUDIT-C) 1. How often do you have a drink containing alcohol?: 2-3 times a week 2. How many drinks containing alcohol do you have on a typical day when you are drinking?: 3 or 4 3. How often do you have six or more drinks on one occasion?: Never Total Score: 4 BE-7 AMB Questionnaire BE-7 Date BE - 7 assessed: 04/24/24 Feeling nervous, anxious, or on edge: 0 = Not at all Not being able to stop or control worryin = Several days Worrying too much about different things: 1 = Several days Trouble relaxin = More than half the days Being so restless that it is hard to sit still: 0 = Not at all Becoming easily annoyed or irritable: 0 = Not at all Feeling afraid as if something awful might happen: 0 = Not at all Total BE-7 score (0-4 normal; 5-9 mild; 10-14 moderate; 15-21 severe): 4 Source: Developed by Drs. Aric Owens, Estefanía Quezada, Rene Rivera and colleagues, with an educational camron from [employer]. Review of Systems Const Denies daytime sleepiness, Denies excessive sweating, Denies fatigue, Denies fever(s), Denies lethargy, Denies malaise, Denies night sweats, Denies snoring and Denies weight loss Eyes Denies blurry vision ENT Denies nasal congestion, Denies post nasal drip, Denies sinus pain and Denies sinus pressure Card Denies chest pain, Denies pedal edema, Denies dyspnea, Denies orthopnea and Denies paroxysmal nocturnal dyspnea Resp Denies cough, Denies dyspnea and Denies snoring GI Denies abdominal pain and Denies heartburn Reports no additional complaints Musc Denies myalgias, Denies arthralgias and Denies joint swelling Skin/Breast Denies rash Neuro Reports no additional complaints Psych Denies abnormal sleep pattern and Denies anxiety Endo Denies excessive sweating, Denies fatigue and Denies heat intolerance Manuel/Lymph Denies easy bruising Aller/Immun Reports no additional complaints Physical exam (Primary Care) Vital Signs: Last Vital Signs Temp 98.1 F 02/07/25 12:07 Pulse 91 02/07/25 12:07 Resp 16 02/07/25 12:07 BP 140/52 H 02/07/25 12:07 Pulse Ox 98 02/07/25 12:07 Oxygen Delivery Method Room Air 02/07/25 12:07 BMI result Body Mass Index 29.7 Tobacco/Smoking Status: Tobacco use Status Tobacco use date assessed 02/07/25 02/07/25 12:09 Patient Tobacco Use Status Former Tobacco user 02/07/25 12:09 e-Cigarette/Vaping Use Never Used 02/07/25 12:09 PHQ-9: PHQ-9 Score PHQ-9: Total score 5 02/07/25 12:18 Depression Screening Interpretation: Negative Thrive Assessment: Date of Thrive Assessment Date Thrive assessed 10/30/24 02/07/25 12:09 Currently or been in a relationship where the following occur: No concerns reported Const General: comfortable and no acute distress Orientation/consciousness: patient oriented x3 [facility] General nose exam: Normal external nose present Mouth: oropharynx normal and moist mucous membranes Eyes General: appearance normal, both eyes and all related structures Neck Neck: Yes full ROM, Yes no lymphadenopathy and Yes supple Resp Effort & Inspection: normal respiratory effort and able to speak in complete sentences Auscultation: clear to auscultation bilaterally Cardio Rate: regular rate Rhythm: regular rhythm Heart sounds: S1 normal heart sound present, S2 normal heart sound present and Murmur heart sound present (Soft murmur heard on left sternal border) GI Palpation (GI): Soft to palpation, nontender and no masses Auscultation: normal bowel sounds Back/Spine/Pelvis Back: No back tenderness Neuro General: patient oriented x3, gait normal, tone normal, moves all extremities, Normal light touch and pain sensation and no focal motor deficits Cognition (Neuro): normal cognition Gait exam (Neuro): Normal gait present Motor exam (neuro): 5/5 motor strength present throughout Extrem General: Yes full ROM, Yes no joint enlargement, Yes no pedal edema, Yes no calf tenderness and Yes normal gait Psych Appearance: grossly normal and well kempt Mental Status: mental status grossly normal Speech and movement: Normal speech and movement present Affect: normal affect Results Reviewed Results Reviewed: Name: Carly Cox Age/Sex: 69/F : 1955 Unit#: [id number] Attend Dr: Moira Pate MD Re02/05/25 Status: DEP [facility] SPEC : [id number] WALLACE: 02/05/25 STATUS: COMP REQ : [id number] RECD: 02/05/[address]: Moira Pate MD COMP: 02/05/25 ENTERED: 02/05/25 [facility] DR: ORDERED: CMP Fast, Lipid Panel Test Result Flag Reference Sodium 142 135-145 mmol/L Potassium 4.1 3.3-5.1 mmol/L CL 105 96-108 mmol/L CO2 27 22-29 mmol/L Gap 14 12-20 BUN 20 H 9-16 mg/dL Creat 0.70 0.5-1.4 mg/dL eGFR > 60 Chronic Kidney Disease: Estimated GFR < 60 mL/min/1.73m2 Severe Kidney Disease: Estimated GFR < 15 mL/min/1.73m2 FBS 104 H 60-99 mg/dL A fasting glucose from 100-125 mg/dl is considered impaired (pre-diabetes). CA 9.1 8.4-10.2 mg/dL Total Bili 0.7 0.0-1.0 mg/dL AST (GOT) 26 5-31 U/L ALT (GPT) 28 0-31 U/L Protein, Total 7.0 6.5-8.0 g/dL Alb 4.4 3.5-5.0 g/dL Triglyceride 83 <150 mg/dL Desirable Triglyceride: less than 150 mg/dL Borderline High Triglyceride 150-199 mg/dL High Triglyceride: 200-499 mg/dL Very High Triglyceride: greater than or equal to 5OO mg/dL Cholesterol 168 <200 mg/dL Desirable Cholesterol: less than 200 mg/dL Borderline High Cholesterol: 200-239 mg/dL High Cholesterol: greater than 239 mg/dL LDL Calculated 95 <100 mg/dL Desirable LDL: less than 100 mg/dL Near Optimal/Above Optimal LDL: 110-129 mg/dL Borderline High LDL: 130-159 mg/dL High LDL: 160-189 mg/dL Very High LDL: greater than or equal to 190 mg/dL HDL 57 >40 mg/dL Desirable HDL: greater than 40 mg/dL Note: This HDL assay may give artificially low results in patients with liver disease. Alk Phos 55 39-117 U/L Coding Level of Care Code Est Pt Level 4 (85414) Complex EM visit Add On G2211 Diagnoses Dyslipidemia E78.5 Secondary hypertension I15.9 Impaired fasting glucose R73.01 Assessment & Plan Assessment & Plan (1) Dyslipidemia: Code(s): E78.5 - Hyperlipidemia, unspecified Category: Medical Plan: Reviewed recent fasting lab results with patient. Continued on atorvastatin 40 mg daily in addition to adhering to healthy eating habits and regular exercise. (2) Secondary hypertension: Code(s): I15.9 - Secondary hypertension, unspecified Category: Medical Plan: Blood pressure slightly elevated on this visit, currently on metoprolol succinate ER 25 mg daily. Continue to monitor blood pressure at home, follow-up persistently above 130/80 (3) Impaired fasting glucose: Code(s): R73.01 - Impaired fasting glucose Category: Medical Plan: Your previous fasting blood sugars were elevated above 100 mg/dL. Impaired glucose metabolism increases the risk for developing diabetes mellitus type 2, as well as heart attack and stroke later on. Lifestyle changes that promotes weight loss, healthy eating habits, and regular exercise are important, and can prevent the progression to diabetes
--- OUTSIDE RECORDS SUMMARY | 2025-02-07 15:13 | XMS_ITS | Clinical Summary ---
Author Organization [facility] Address [address] [facility] [address] [place] [address] Phone Care Team Providers Care Family Therapist Name Role Phone Moira Pate MD Primary [...] (02/12/2020 8:59 AM EDT) HDL 79 mg/dL [facility] Comment: Interpretation <40 mg/dL: Low HDL cholesterol (major risk factor for CHD) Greater than or equal to 60 mg/dL: High HDL cholesterol ( negative risk factor for CHD) HDL - cholesterol is affected by a number of factors, e.g. smoking, excerise, hormones, sex and age. CHOLESTEROL 209 0 - 240 mg/dL [facility] TRIGLYCERIDES 51 30 - 160 mg/dL [facility] LDL 120 50 - 129 mg/dL [facility] Comment: LDL levels in terms of risk for coronary heart disease: <100 mg/dL: Optimal 100-129 mg/dL: Near or above optimal 130-159 mg/dL: Borderline high 160-189 mg/dL: High >190 mg/dL: Very High CARDIAC RISK RATIO 2.6(L) 3.3 - 4.4 [facility] Blood 02/12/2020 8:59 AM EDT 02/12/2020 9:04 AM EDT us Moira Pate MD LAB BLOOD ORDERABLES F inal Result [address] [address] * BI MAMMOGRAM SCREENING WITH [...] Images interpreted in conjunction with R-2 Image Chucking Machine Operator computer-aided detection (CAD). FINDINGS: BREAST COMPOSITION: [...] mammograms, most recent 05/24/2017 and dating back [id number]. TECHNIQUE: Digital breast tomosynthesis was performed in [...] Relevant to Health Maintenance Insurance [place] [address] MEDICARE REPLACEMENT [place] [id number] MEDICARE REPLACEMENT MEDICARE REPLACEMENT [facility] MEDICARE REPLACEMENT MEDICARE REPLACEMENT MEDICARE REPLACEMENT [facility] MEDICARE REPLACEMENT [facility] MEDICARE REPLACEMENT Care Teams Family Therapist Relationship Specialty Start Date End Date Moira Pate MD [address] [place] [address] PCP - General 03/02/17 Additional Source Comments The information contained in this document represents components of the legal health record. It is not the complete legal health record.[facility]
--- OUTSIDE RECORDS SUMMARY | 2025-02-07 15:13 | XMS_ITS | Encounter Summary ---
Author Organization [facility] Address [address] [place] [phone] Phone Care Team Providers Care Director Of Cardiopulmonary Services Name Role Phone Moira Pate MD Primary Care Provider Encounter Details Date Type Department Care Team (Late st Contact Info) Description 04/21/2017 Ancillary Orders Virtual Department [address] [place] [address] Moira Pate MD [address] [place] [id number] Breast cancer screening Social History Tobacco Use [...] unspecified documented in this encounter Care Teams Director Of Cardiopulmonary Services Relationship Specialty Start Date End Date Moira Pate MD [facility] [place] [address] PCP - General 03/02/17 documented as of this encounter Additional Source Comments The information contained in this document represents components of the legal health record. It is not the complete legal health record.[facility]
--- OUTSIDE RECORDS SUMMARY | 2025-02-07 15:14 | XMS_ITS | Patient Health Record ---
Author Organization [facility] Address [address] [place] [id number] Care Team Providers Care Finisher Merchant Products Name Role Phone Herlinda PENNY, Moira Primary Care Provider Aric Sandoval Unavailable [phone] Reason For Referral No Information Medications Medication SIG (Take, Route, Frequency, Duration) Notes Start Date End Date Status Multi Complete - Orally Act peyton ALPRAZolam 0.5 MG (Schedule IV Drug) TAKE 1 TABLET BY MOUTH TWICE A DAY NEEDED Oral; Duration: 15 Not daily Active Metoprolol Succinate ER 25 MG TAKE 1 TABLET BY MOUTH EVERY DAY Oral; Duration: 90 Active PARoxetine HCl ER 12.5 MG TAKE 1 TABLET BY MOUTH EVERY DAY IN THE MORNING Oral; Duration: 30 Weaning off Active Aspirin Adult Low Dose 81 MG 1 tablet Orally Once a day Active Atorvastatin Calcium 10 MG TAKE 1 TABLET BY MOUTH ONCE A DAY Oral; Duration: 90 Active Social History Tobacco Use: Social [...] Problem Status W/U Status Risk Notes Problem Screening for malignant neoplasm of colon ([id number]) Encounter for screening for malignant neoplasm of colon (Z12.11) Active confirmed Problem Preprocedural examination ([id number]) Preprocedural examination (Z01.818) Active confirmed Problem Long-term current use of aspirin (085472603133886) Aspirin long-term use (Z79.82) Active confirmed Plan Of Treatment Future Test Test Name Order Date COLONOSCOPY 04/15/2017 Insurance Providers Payer Name Payer Address Payer Phone Subscriber Number Group Number Insured Name Patient Relationship to Insured Coverage Start Date Coverage End Date [facility] [employer] [address] [place] [address] [id number] KAYLAN COYNE Self - patient is the insured MEDICAID OF [employer] [address] [place] [address] [id number] KAYLAN COYNE Self - patient is the insured Medical (General) History Medical History History ICD Code Bovine aortic valve replacement 01/2016 at [facility]--? Aortic stenosis Denies MS,DM,CVA,Lung disease,renal dise ase Hyperlipidemia Sleep apnea--but not using the CPAP regu larly Screening colonoscopy in Nov with removal of hyperplastic polyps--also noted to have internal and external hemorrhoids Surgical History Surgery Date(Month/Year) Aortic valve replacement--Bovine Tendonitis right surgery-right wrist
--- OUTSIDE RECORDS SUMMARY | 2025-02-07 15:14 | XMS_ITS | Encounter Summary ---
Author Organization [facility] Address [address] [place] [phone] Phone Care Team Providers Care Claims Consultant Name Role Phone Moira Pate MD Primary Care Provider Encounter Details Date Type Department Care Team (Late st Contact Info) Description 04/03/2019 Ancillary Orders Virtual Department [address] [place] [address] Moira Pate MD [address] [place] [address] [place] [address] Breast screening Social History Tobacco Use Types [...] Images interpreted in conjunction with R-2 Image Stock Grader computer-aided detection (CAD). FINDINGS: BREAST COMPOSITION: There [...] mammograms, most recent 05/24/2017 and dating back [id number]. TECHNIQUE: Digital breast tomosynthesis was performed in [...] unspecified documented in this encounter Care Teams Claims Consultant Relationship Specialty Start Date End Date Moira Pate MD [facility] [place] [address] PCP - General 03/02/17 documented as of this encounter Additional Source Comments The information contained in this document represents components of the legal health record. It is not the complete legal health record.[facility]
== END 2025-02-07 12:50 | disposition home or self-care (01) ==
LOC: HO.HMCC 11:11
PROVIDERS: PCP Internal Medicine; Visit Provider Internal Medicine
DX: E78.5 Hyperlipidemia, unspecified (principal); I15.9 Secondary hypertension, unspecified; R73.01 Impaired fasting glucose

== ENCOUNTER → 2025-02-07 11:10 | Outpatient (BNVA) | payer MEDICARE, SELFPAY | PROVIDERS: PCP Internal Medicine; Visit Provider Internal Medicine | DX: I10 Essential (primary) hypertension (principal); E78.5 Hyperlipidemia, unspecified; R73.01 Impaired fasting glucose; G47.33 Obstructive sleep apnea (adult) (pediatric); Z99.89 Dependence on other enabling machines and devices; Z95.2 Presence of prosthetic heart valve | CPT/HCPCS: 96127; 99212 ==